=== PATIENT | male | born 1940 | race Caucasian/White ===

== ENCOUNTER 2017-12-28 16:01 | Inpatient (IN) ==
[2017-12-28] MEDS ORDERED: LACTATED RINGERS 1,000 ML IV ONE (16:25)
--- NOTE | 2017-12-28 16:27 | Emergency Department Note ---
General Adult HPI - General Chief complaint: Weakness Stated complaint: weakness Time Seen by Provider: 12/28/17 16:10 Source: patient Mode of arrival: ambulatory Limitations: no limitations - History of Present Illness HPI Narrative: This patient has had flulike symptoms for the last several days with cough congestion diarrhea general aches and pains. Minimal shortness of breath no chest pain minimal abdominal pain. - Related Data Home Medications Medication Instructions Recorded Confirmed Simvastatin [Zocor] 40 mg PO HS 11/16/15 12/28/17 [facility] Vitamin D caps PO QDAY 03/08/16 03/13/16 aspirin 81 mg tablet,delayed 81 mg PO QDAY 03/08/16 12/28/17 release ascorbic acid (vitamin C) ER 500 500 mg PO QDAY 03/13/16 12/28/17 mg capsule,extended release Allergies Allergy/AdvReac Type Severity Reaction Status Date / Time No Known Drug Allergies Allergy Verified 12/28/17 16:04 Review of Systems All systems ED: reviewed and negative except as stated. Past Medical History - Past Medical History PMF Narrative: Medical History Skin lesion (Chronic) Dry skin (Chronic) History of radiation therapy (Chronic) History of nicotine dependence (Chronic) Joint stiffness (Chronic) Limb pain (Chronic) Joint swelling (Chronic) Slowing, urinary stream (Chronic) Prostate cancer (Chronic) Microscopic hematuria (Chronic) Dysuria (Chronic) Rash (Chronic) Wheezing (Chronic) Hernia, abdominal (Chronic) Prostate carcinoma (Chronic) Nocturia (Chronic) Adenocarcinoma of prostate (Chronic) AMI (acute myocardial infarction) (Chronic) Hypertension, essential (Chronic) Psoriasis (Chronic) CAD (coronary artery disease) (Chronic) Chronic renal disease (Chronic) Urinary retention (Chronic) Urethral stricture (Chronic) Polycythemia, secondary (Chronic) COPD (chronic obstructive pulmonary disease) (Chronic) Drug-induced hepatotoxicity (Chronic) Dermatitis (Chronic) Hyperlipidemia (Chronic) Community acquired pneumonia (Acute) Past Surgical History History of cholecystectomy (Chronic) History of colonoscopy (Chronic) History of knee surgery (Chronic) History of surgery (Chronic) Hx of right coronary artery stent placement (Chronic) S/P cystourethroscopy with dilation of urethral stricture (Chronic) Family History Other Cancer Heart attack Prostate cancer Medical history: Reports: hyperlipidemia - Social History smoking status: Current every day smoker Physical Exam Limitations: no limitations General appearance: alert Head: atraumatic Eye: Present: normal appearance ENT: normal exam Neck: Present: normal inspection Chest: Present: normal inspection Respiratory: Present: other (Scattered rhonchi) Cardiovascular: Present: regular rate, normal rhythm, normal heart sounds Abdominal: Present: soft. Absent: distention, tenderness Neurological: Present: alert Psychiatric: Present: normal affect, normal mood Skin: Present: warm, dry, intact Course Vital Signs Temperature 98.6 F 12/28/17 16:02 Respiratory Rate 20 12/28/17 16:02 Blood Pressure 126/76 12/28/17 16:02 Pulse Oximetry (%) 92 12/28/17 16:02 Temperature 98.6 F 12/28/17 16:02 Pulse Rate 69 12/28/17 18:47 Respiratory Rate 20 12/28/17 16:02 Blood Pressure 117/63 12/28/17 18:47 Pulse Oximetry (%) 90 12/28/17 18:47 Medical Decision Making - MDM Narrative Medical decision making narrative: Patient does have a left lower lobe infiltrate and a urinary tract infection. Received Rocephin and doxycycline. He was interested in staying in the hospital as he felt so weak and Dr. Pierre will admit him. - Lab Data Lab results reviewed: Yes I reviewed the patient's lab results. Result diagrams: 12/28/17 16:33 12/28/17 16:33 Lab Results 12/28/17 12/28/17 12/28/17 Range/Units 16:33 16:33 16:33 WBC 15.1 H (4.5-11.0) K/mcL RBC 4.59 (4.50-5.90) M/mcL Hgb 14.1 (13.5-16.5) g/dL Hct 42.0 (41.0-55.0) % MCV 91.4 (80.0-100.0) fL MCH 30.7 (26.0-34.0) pg MCHC 33.6 (31.0-36.0) g/dL RDW 13.2 (11.5-14.5) % Plt Count 235 (140-440) K/mcL MPV 7.7 (7.4-10.4) fL Gran % 73.5 (38.0-78.0) % Lymph % (Auto) 14.5 L (15.5-49.0) % Weber % (Auto) 9.8 (1.0-12.0) % Eos % (Auto) 1.8 (0.0-7.0) % Baso % (Auto) 0.4 (0.0-2.0) % Gran # 11.1 H (1.8-8.0) K/mcL Lymph # (Auto) 2.2 (1.5-4.8) K/mcL Weber # (Auto) 1.5 H (0.1-0.9) K/mcL Eos # (Auto) 0.3 (0.0-0.7) K/mcL Baso # (Auto) 0.1 (0.0-0.3) K/mcL VBG Lactic Acid 1.0 (0.5-2.2) mmol/L Sodium 136 (133-145) mmol/L Potassium 4.0 (3.3-5.1) mmol/L Chloride 99 (96-108) mmol/L Carbon Dioxide 22 (22-30) mmol/L Anion Gap 15.0 (8-16) BUN 21 (8-23) mg/dl Creatinine 1.3 H (0.7-1.2) mg/dl GFR Calculation 53 Glucose 103 (70-105) mg/dL Calcium 9.6 (8.6-10.4) mg/dl Total Bilirubin 1.0 (0.0-1.0) mg/dL AST 15 (0-37) U/l ALT 10 (0-40) U/l Alkaline Phosphatase 62 (39-117) U/L Total Protein 6.9 (5.9-8.4) gm/dL Albumin 3.7 (3.2-5.2) gm/dL Globulin 3.2 (2.2-3.7) gm/dL Albumin/Globulin Ratio 1.2 (1.0-2.3) Urine Color Urine Appearance Urine pH (5.0-9.0) Ur Specific [place] (1.000-1.035) Urine Protein (NEG) mg/dL Urine Glucose (UA) (NEG) mg/dL Urine Ketones (NEG) mg/dL Urine Occult Blood (<0.03) mg/dL Urine Nitrate (NEG) Urine Bilirubin (NEG) mg/dL Urine Urobilinogen (NEG) mg/dL Ur Leukocyte Esterase (NEG) /uL Urine RBC (0-1) /hpf Urine WBC (0-4) /hpf Ur Squamous Epith Cells (0-4) /hpf Urine Bacteria (0) /hpf Urine Mucus (0) /hpf Ur Culture Indicated? 12/28/17 Range/Units 16:36 WBC (4.5-11.0) K/mcL RBC (4.50-5.90) M/mcL Hgb (13.5-16.5) g/dL Hct (41.0-55.0) % MCV (80.0-100.0) fL MCH (26.0-34.0) pg MCHC (31.0-36.0) g/dL RDW (11.5-14.5) % Plt Count (140-440) K/mcL MPV (7.4-10.4) fL Gran % (38.0-78.0) % Lymph % (Auto) (15.5-49.0) % Weber % (Auto) (1.0-12.0) % Eos % (Auto) (0.0-7.0) % Baso % (Auto) (0.0-2.0) % Gran # (1.8-8.0) K/mcL Lymph # (Auto) (1.5-4.8) K/mcL Weber # (Auto) (0.1-0.9) K/mcL Eos # (Auto) (0.0-0.7) K/mcL Baso # (Auto) (0.0-0.3) K/mcL VBG Lactic Acid (0.5-2.2) mmol/L Sodium (133-145) mmol/L Potassium (3.3-5.1) mmol/L Chloride (96-108) mmol/L Carbon Dioxide (22-30) mmol/L Anion Gap (8-16) BUN (8-23) mg/dl Creatinine (0.7-1.2) mg/dl GFR Calculation Glucose (70-105) mg/dL Calcium (8.6-10.4) mg/dl Total Bilirubin (0.0-1.0) mg/dL AST (0-37) U/l ALT (0-40) U/l Alkaline Phosphatase (39-117) U/L Total Protein (5.9-8.4) gm/dL Albumin (3.2-5.2) gm/dL Globulin (2.2-3.7) gm/dL Albumin/Globulin Ratio (1.0-2.3) Urine Color Yellow Urine Appearance Hazy Urine pH 5.0 (5.0-9.0) Ur Specific [place] 1.020 (1.000-1.035) Urine Protein 30 A (NEG) mg/dL Urine Glucose (UA) Negative (NEG) mg/dL Urine Ketones Neg (NEG) mg/dL Urine Occult Blood 0.2 A (<0.03) mg/dL Urine Nitrate Neg (NEG) Urine Bilirubin Neg (NEG) mg/dL Urine Urobilinogen 2.0 A (NEG) mg/dL Ur Leukocyte Esterase Neg (NEG) /uL Urine RBC 17 H (0-1) /hpf Urine WBC 9 H (0-4) /hpf Ur Squamous Epith Cells 1 (0-4) /hpf Urine Bacteria 0 (0) /hpf Urine Mucus Few (0) /hpf Ur Culture Indicated? Yes - Radiology Data Radiology results reviewed: Yes I reviewed the patient's radiology results. Disposition Pt seen by PHOTOGRAPHY ASSISTANT/PA only: No Clinical Impression: Pneumonia, UTI (urinary tract infection) Disposition: Xfer As Outpt/Obs ([facility]) Referrals: Lanette Powers ARNP [Primary Care Provider] - Time of Disposition: 19:45
--- NOTE | 2017-12-28 16:35 | XRay Report ---
CLINICAL INFORMATION: Cough COMPARISON: 11/16/2015 FINDINGS: Heart size, mediastinum and pulmonary vessels are unremarkable. 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 A small patchy infiltrate has developed in the posterior medial left lower lobe with small left pleural effusion. Bones and soft tissues are unremarkable IMPRESSION: 1. Small patchy infiltrate left lower lobe - likely pneumonia 2. Moderate COPD with a 15 cm bullae dominating the right upper lobe - stable Interpreted and Authenticated by: Bo Ortega 12/28/17
[2017-12-28 17:08] LABS: Basophils # (Auto) 0.1 K/mcL (0.0-0.3); Basophils % (Auto) 0.4 % (0.0-2.0); Eosinophils # (Auto) 0.3 K/mcL (0.0-0.7); Eosinophils % (Auto) 1.8 % (0.0-7.0); Granulocytes % (Auto) 73.5 % (38.0-78.0); Lymphocytes # (Auto) 2.2 K/mcL (1.5-4.8); Lymphocytes % (Auto) 14.5 % (15.5-49.0); Mean Cell Volume 91.4 fL (80.0-100.0); Mean Corpuscular HGB Conc 33.6 g/dL (31.0-36.0); Mean Corpuscular Hemoglobin 30.7 pg (26.0-34.0); Monocytes # (Auto) 1.5 K/mcL (0.1-0.9); Monocytes % (Auto) 9.8 % (1.0-12.0); Platelet Count 235 K/mcL (140-440); RBC 4.59 M/mcL (4.50-5.90); Red Cell Distribution Width 13.2 % (11.5-14.5)
[2017-12-28 17:18] LABS: Appearance,Urine HAZY; Bacteria,Urine 0 /hpf (0); Bilirubin,Urine NEG (NEG); Color,Urine YELLOW; Glucose,Urine (UA) NEGATIVE (NEG); Leukocyte Esterase,Urine NEG /uL (NEG); Mucus,Urine FEW /hpf (0); Protein,Urine 30 mg/dL (NEG); Urine Blood 0.2 mg/dL (<0.03); Urine RBC 17 /hpf (0-1); Urine Squamous Epithelial Cell 1 /hpf (0-4); Urine WBC 9 /hpf (0-4)
[2017-12-28 17:24] LABS: ALT/SGPT 10 U/l (0-40); Albumin 3.7 gm/dL (3.2-5.2); Albumin/Globulin Ratio 1.2 (1.0-2.3); Alkaline Phosphatase 62 U/L (39-117); Blood Urea Nitrogen 21 mg/dl (8-23)
[2017-12-28] MEDS ORDERED: cefTRIAXone 1 GM VIAL IV ONE (17:30)
[2017-12-28] MEDS ORDERED: DOXYCYCLINE 100 MG in DEXTROSE 5% IN WATER 100 ML IV ONE (17:30)
[2017-12-28] MEDS ORDERED: DOXYCYCLINE 100 MG VIAL ONE (17:44)
[2017-12-28] MEDS ORDERED: DEXTROSE 5% IN WATER 100 ML IV ONE (17:53)
[2017-12-28] MEDS ORDERED: HYDROmorphone 2 MG/ML VIAL IV PRN (19:21)
[2017-12-28] MEDS ORDERED: cefTRIAXone 2 GM in DEXTROSE 5% IN WATER 50 ML IV SCH (22:36)
[2017-12-28] MEDS ORDERED: MAGNESIUM SULFATE 2 GM/50 ML BAG IV PRN (22:36)
[2017-12-28] MEDS ORDERED: ONDANSETRON 4 MG/2 ML VIAL IV PRN (22:36)
[2017-12-28] MEDS ORDERED: ACETAMINOPHEN 1,000 MG/100 ML BOTTLE IV PRN (22:36)
[2017-12-28] MEDS ORDERED: POTASSIUM CHLORIDE 20 MEQ PACKET PO PRN (22:36)
[2017-12-28] MEDS: DOCUSATE SODIUM 100 MG CAPSULE PO SCH (22:50)
[2017-12-28] MEDS: AZITHROMYCIN 500 MG in DEXTROSE 5% IN WATER 250 ML IV SCH (22:51)
[2017-12-28] MEDS: cefTRIAXone 1 GM VIAL ONE ×2 (22:52→23:05)
[2017-12-28] MEDS: 0.9 % SODIUM CHLORIDE 10 ML SYRINGE IV SCH (22:52)
[2017-12-28] MEDS: SENNOSIDES/DOCUSATE SODIUM 1 TAB TABLET PO SCH (22:58)
--- NOTE | 2017-12-28 23:32 | Internal Med History&Physical ---
Medical - H&P: [facility] Patient information: Note initiated : 12/28/17 at 11:31 pm Service Date, if different from initiated Date: [] Patient: Philipp Connelly a 77 y/o M admitted on 12/28/17 for weakness. Chief Complaint: [] Chief complaint: cough shortness of breath History of present illness: Mr. Connelly is a 77 year old M who lives fairly independently and was in his baseline state of health until over the last 1 week patient has noticed uppersymptoms including cough along with wheezing. Symptoms have progressed to dyspnea on minimal exertion/breast along with associated productive yellow- green sputum. Patient denies any sick contacts. He is up-to-date on his vaccine. Patient noted associated fever. He denies smoking. He has been unable to eat over the last 24 hours. He has not had a sleep last 48 hours due to extreme shortness of breath. he has been unable to function or perform activities of daily living. With increasing concerns family brought him to the ER. initial workup was significant for left lower lobe infiltrates suggestive of pneumonia along with pyuria, white count 15,000. Patient received antibiotics and subsequently hospitalist service consulted At the time of evaluation patient is remarkably short of breath and anxious and unable to talk in full sentences.. He was however able to provide answers to most of the questions including review of systems. He denies headache photophobia and nausea vomiting diarrhea dysuria or bloody stools weight loss glandular swelling. He denies joint pain or rash. Review of systems A 10 point review systems was performed and is negative except for what is discussed above Medical - H&P: PM Medical history: Medical History Skin lesion (Chronic) Dry skin (Chronic) History of radiation therapy (Chronic) History of nicotine dependence (Chronic) Joint stiffness (Chronic) Limb pain (Chronic) Joint swelling (Chronic) Slowing, urinary stream (Chronic) Prostate cancer (Chronic) Microscopic hematuria (Chronic) Dysuria (Chronic) Rash (Chronic) Wheezing (Chronic) Hernia, abdominal (Chronic) Prostate carcinoma (Chronic) Nocturia (Chronic) Adenocarcinoma of prostate (Chronic) AMI (acute myocardial infarction) (Chronic) Hypertension, essential (Chronic) Psoriasis (Chronic) CAD (coronary artery disease) (Chronic) Chronic renal disease (Chronic) Urinary retention (Chronic) Urethral stricture (Chronic) Polycythemia, secondary (Chronic) COPD (chronic obstructive pulmonary disease) (Chronic) Drug-induced hepatotoxicity (Chronic) Dermatitis (Chronic) Hyperlipidemia (Chronic) Community acquired pneumonia (Acute) Past Surgical History History of cholecystectomy (Chronic) History of colonoscopy (Chronic) History of knee surgery (Chronic) History of surgery (Chronic) Hx of right coronary artery stent placement (Chronic) S/P cystourethroscopy with dilation of urethral stricture (Chronic) Pertinent family history: Cancer Heart attack Prostate cancer Social history: active smoker No history of alcoholism lives independent Smoking status: Current every day smoker Drug use: none Alcohol use: none Medical - H&P: Meds Home Medications Medication Instructions Recorded Confirmed Type Simvastatin [Zocor] 40 mg PO HS 11/16/15 12/28/17 History [facility] Vitamin D caps PO QDAY 03/08/16 03/13/16 History aspirin 81 mg tablet,delayed 81 mg PO QDAY 03/08/16 12/28/17 History release ascorbic acid (vitamin C) ER 500 500 mg PO QDAY 03/13/16 12/28/17 History mg capsule,extended release Allergies Allergy/AdvReac Type Severity Reaction Status Date / Time No Known Drug Allergies Allergy Verified 12/28/17 16:04 Medical - H&P: Exam - Constitutional Vitals: Temp Pulse Resp BP Pulse Ox 99.4 F H 74 28 H 124/69 90 12/28/17 22:28 12/28/17 22:28 12/28/17 22:28 12/28/17 22:28 12/28/17 22:28 General appearance: moderate distress (SOB) Exam: pupils symmetric oral cavity dry No ear nose discharge Head normocephalic Neck no lymphadenopathy S1 and S2 tachycardia Diminished breath sounds left base, rhonchi evident laterally Abdomen soft Nontender Lower extremity no cyanosis clubbing Skin no suspicious lesion Psych anxious but alert Neuro nonfocal Medical - H&P: Reslt - Labs CBC & Chem 7: 12/29/17 03:25 12/29/17 03:25 Labs: Short CBC 12/28/17 Range/Units 16:33 WBC 15.1 H (4.5-11.0) K/mcL Hgb 14.1 (13.5-16.5) g/dL Hct 42.0 (41.0-55.0) % Plt Count 235 (140-440) K/mcL BMP 12/28/17 16:33 Sodium 136 Potassium 4.0 Chloride 99 Carbon Dioxide 22 BUN 21 Creatinine 1.3 H Glucose 103 Calcium 9.6 Liver Function 12/28/17 Range/Units 16:33 Total Bilirubin 1.0 (0.0-1.0) mg/dL AST 15 (0-37) U/l ALT 10 (0-40) U/l Alkaline Phosphatase 62 (39-117) U/L Albumin 3.7 (3.2-5.2) gm/dL Urine 12/28/17 Range/Units 16:36 Urine Color Yellow Urine Appearance Hazy Urine pH 5.0 (5.0-9.0) Ur Specific [place] 1.020 (1.000-1.035) Urine Protein 30 A (NEG) mg/dL Urine Glucose (UA) Negative (NEG) mg/dL Medical - H&P: A/P (1) Community acquired pneumonia Current visit: No Status: Acute assessment- 77-year-old hypoxic respiratory failure/left lower lobe pneumonia * Community acquired pneumonia-management per protocol on Rocephin/azithromycin * COPD exacerbation-bronchodilators/steroids * hypoxic respiratory failure-continue cefepime until oxygen. Secondary to pneumonia/underlying COPD. pulmonary toilet * complicated UTI- continue antibiotic coverage * hyperlipidemia on statin * Full code * Prophylaxis heparin Plan * Antibiotic coverage * Bronchodilators pulmonary toilet * Admitted as inpatient in light of PSI score over 100
[2017-12-28] MEDS: HEPARIN 5,000 UNIT/ML VIAL SQ SCH (23:48)
[2017-12-29] MEDS: ACETAMINOPHEN 325 MG TABLET PO PRN (03:06)
[2017-12-29] MEDS ORDERED: ACETAMINOPHEN 325 MG TABLET PO ONE (03:07)
[2017-12-29] MEDS: IPRATROPIUM/ALBUTEROL 3 ML AMPUL.NEB NEB PRN ×4 (03:07→20:47)
[2017-12-29] MEDS ORDERED: IPRATROPIUM/ALBUTEROL 3 ML AMPUL.NEB NEB ONE (03:07)
[2017-12-29 04:57] LABS: Mean Cell Volume 91.1 fL (80.0-100.0); Mean Corpuscular HGB Conc 33.8 g/dL (31.0-36.0); Mean Corpuscular Hemoglobin 30.8 pg (26.0-34.0); Platelet Count 197 K/mcL (140-440); RBC 4.12 M/mcL (4.50-5.90); Red Cell Distribution Width 13.4 % (11.5-14.5)
[2017-12-29] MEDS: 0.9 % SODIUM CHLORIDE 10 ML SYRINGE IV SCH ×3 (05:04→22:26)
[2017-12-29] MEDS: 0.9 % SODIUM CHLORIDE 1,000 ML IV SCH (05:04)
[2017-12-29 05:15] LABS: ALT/SGPT 10 U/l (0-40); Albumin 3.1 gm/dL (3.2-5.2); Albumin/Globulin Ratio 1.1 (1.0-2.3); Alkaline Phosphatase 73 U/L (39-117); Bilirubin,Direct < 0.2 mg/dL (0.0-0.3); Blood Urea Nitrogen 16 mg/dl (8-23); Gamma Glutamyl Transpeptidase 30 U/L (8-61); Uric Acid 7.1 mg/dL (2.5-8.0)
[2017-12-29 05:58] LABS: Band Neutrophils % 6 % (0-10); Eosinophils % (Manual) 1 % (0-7); Lymphocytes % 21 % (15-49); Monocytes % (Manual) 8 % (1-12); Platelet Estimate NORMAL (NORMAL); RBC Morphology NORMAL (NORMAL); Segmented Neutrophils % 62 % (38-78)
[2017-12-29] MEDS: HEPARIN 5,000 UNIT/ML VIAL SQ SCH ×2 (09:14→20:47)
[2017-12-29] MEDS: BUDESONIDE 0.5 MG/2 ML AMPUL.NEB NEB SCH ×2 (09:28→20:57)
[2017-12-29] MEDS: DOCUSATE SODIUM 100 MG CAPSULE PO SCH ×2 (09:47→22:24)
--- NOTE | 2017-12-29 10:37 | Internal Med Progress Note ---
Medical - PN: Subj Patient information: Note initiated : 12/29/17 at 10:34 am Service Date, if different from initiated Date: [] Patient: Philipp Connelly a 77 y/o M admitted on 12/28/17 for weakness. Chief Complaint: [] Interval history: Mr. Connelly is a 77 year old M who lives fairly independently and was in his baseline state of health until over the last 1 week patient has noticed uppersymptoms including cough along with wheezing. Symptoms have progressed to dyspnea on minimal exertion/breast along with associated productive yellow- green sputum. Patient denies any sick contacts. He is up-to-date on his vaccine. Patient noted associated fever. He denies smoking. He has been unable to eat over the last 24 hours. He has not had a sleep last 48 hours due to extreme shortness of breath. he has been unable to function or perform activities of daily living. With increasing concerns family brought him to the ER. initial workup was significant for left lower lobe infiltrates suggestive of pneumonia along with pyuria, white count 15,000. Patient received antibiotics and subsequently hospitalist service consulted At the time of evaluation patient is remarkably short of breath and anxious and unable to talk in full sentences.. He was however able to provide answers to most of the questions including review of systems. He denies headache photophobia and nausea vomiting diarrhea dysuria or bloody stools weight loss glandular swelling. He denies joint pain or rash. 12/29-patient doing well. Persistent wheezing but had a restful night. On 3 L oxygen. On bronchodilators and antibiotics. White count down from 15->14. no overnight events including worsening shortness of breath chest pain. Tolerating diet. Ongoing physical therapy. - Constitutional Vitals: Vital Signs Temp Pulse Resp BP Pulse Ox 98.2 F 60 16 98/62 91 12/29/17 07:51 12/29/17 09:42 12/29/17 09:42 12/29/17 07:51 12/29/17 09:42 Period Temp Pulse Resp BP Sys/Raines Pulse Ox Last 24 Hr 98.2 F-101.1 F 60-80 16-28 90-131/50-83 89-95 Intake and Output 12/28/17 12/29/17 12/29/17 21:59 05:59 13:59 Intake Total 1100 / 1100 0 / 0 400 / 400 Output Total 200 / 200 450 / 450 Balance 1100 / 1100 -200 / -200 -50 / -50 Weight 174 lb 174 lb Intake & Output: Intake & Output 12/28/17 12/29/17 12/29/17 21:59 05:59 13:59 Intake Total 1100 / 1100 0 / 0 400 / 400 Output Total 200 / 200 450 / 450 Balance 1100 / 1100 -200 / -200 -50 / -50 Weight 174 lb 174 lb Intake: IV 1100 / 1100 Dextrose 5% in Water 100 ml As 100 / 100 IV .STK-MED ONE Rx#:[id number] Lactated Ringers 1,000 ml @ 1000 / 1000 Wide Open IV BOLUS ONE Rx#: [id number] Oral 0 / 0 400 / 400 Output: Void Amount 200 / 200 450 / 450 Other: Meal Fruit cup & grahm crackers Breakfast Percent of Meal Consumed 100% 100% # Voids 1 General appearance: cooperative, no acute distress Exam: alert and oriented nonlabored breathing However persistent rhonchi Nondistended abdomen minimal anxiety Medical - PN: Obj Da - Labs CBC & Chem 7: 12/29/17 03:25 12/29/17 03:25 Labs: Abnormal Lab Results 12/29/17 12/29/17 12/28/17 03:25 03:25 16:36 WBC 14.0 H RBC 4.12 L Hgb 12.7 L Hct 37.6 L Lymph % (Auto) Gran # Starr # (Auto) Creatinine Glucose 123 H Phosphorus 2.1 L Total Protein 5.8 L Albumin 3.1 L Urine Protein 30 A Urine Occult Blood 0.2 A Urine Urobilinogen 2.0 A Urine RBC 17 H Urine WBC 9 H 12/28/17 12/28/17 16:33 16:33 WBC 15.1 H RBC Hgb Hct Lymph % (Auto) 14.5 L Gran # 11.1 H Starr # (Auto) 1.5 H Creatinine 1.3 H Glucose Phosphorus Total Protein Albumin Urine Protein Urine Occult Blood Urine Urobilinogen Urine RBC Urine WBC Meds: Medications Acetaminophen (Tylenol) 650 mg PO Q4-6HP PRN PRN Reason: PAIN/FEVER > 101 Last Admin: 12/29/17 03:06 Dose: 650 mg Albuterol/Ipratropium (Duoneb) 3 ml NEB Q4HP PRN PRN Reason: Shortness Of Breath Last Admin: 12/29/17 09:40 Dose: 3 ml Budesonide (Pulmicort) 0.5 mg NEB Q12 [facility] Last Admin: 12/29/17 09:28 Dose: 0.5 mg Ceftriaxone Sodium (Rocephin) 2 gm IV Q24H [facility] Docusate Sodium (Colace) 100 mg PO BID [facility] Last Admin: 12/29/17 09:47 Dose: Not Given Heparin Sodium (Porcine) (Heparin) 5,000 unit SQ Q12 [facility] Last Admin: 12/29/17 09:14 Dose: 5,000 unit Azithromycin 500 mg/ Dextrose 250 mls @ 250 mls/hr IV Q24H [facility] Stop: 12/30/17 23:35 Last Admin: 12/28/17 22:51 Dose: 250 mls/hr Magnesium Sulfate (Magnesium Sulfate) 2 gm in 50 mls @ 50 mls/hr IV UD PRN PRN Reason: MG = or < 1.7 Acetaminophen (Ofirmev) 1,000 mg in 100 mls @ 200 mls/hr IV Q6HP PRN PRN Reason: PAIN/FEVER > 101 Sodium Chloride (Sodium Chloride 0.9%) 1,000 mls @ 50 mls/hr IV .Q20H [facility] Last Admin: 12/29/17 05:04 Dose: 50 mls/hr Ondansetron HCl (Zofran) 4 mg IV Q4-6HP PRN PRN Reason: Nausea And Vomiting Potassium Chloride (Klor-Con) 40 meq PO DAILYP PRN PRN Reason: K+ < 3.5 Senna/Docusate Sodium (Senna Plus Tablet) 1 tab PO HS [facility] Last Admin: 12/28/17 22:58 Dose: Not Given Sodium Chloride (Saline Flush) 10 ml IV Q8 [facility] Last Admin: 12/29/17 05:04 Dose: 10 ml Medical - PN: A/P - Time Spent With Patient Total time spent is greater than 50% in coordination of care (as documented) at patient's floor/unit and/or counseling patient: 25 - 35 minutes (1) Community acquired pneumonia Status: Acute Assessment and plan: Assessment- 77-year-old history of active smoking/COPD admitted with hypoxic respiratory failure/left lower lobe pneumonia * Community acquired pneumonia-continue management per protocol on Rocephin/ azithromycin.white count down to 14,000 * COPD exacerbation-clinical improvement noted on supplement oxygen/ bronchodilators/steroids * hypoxic respiratory failure-continue supplemental oxygen. Secondary to pneumonia/underlying COPD. ongoing pulmonary toilet * complicated UTI- continue antibiotic coverage * hyperlipidemia on statin * tobacco dependence * Full code * Prophylaxis heparin Plan * de-escalate antibiotics based on culture sensitivities * Bronchodilators pulmonary toilet * physical therapy * tobacco cessation counseling Current Visit: No Medical - PN: Qual - VTE Deep Vein Thrombosis/Pulmonary Embolism Present on Admission: No
[2017-12-29] MEDS: cefTRIAXone 2 GM VIAL IV SCH (14:58)
[2017-12-29] MEDS: AZITHROMYCIN 500 MG in DEXTROSE 5% IN WATER 250 ML IV SCH (14:58)
[2017-12-29] MEDS: SENNOSIDES/DOCUSATE SODIUM 1 TAB TABLET PO SCH (22:24)
[2017-12-30] MEDS: IPRATROPIUM/ALBUTEROL 3 ML AMPUL.NEB NEB PRN (02:40)
[2017-12-30] MEDS: 0.9 % SODIUM CHLORIDE 1,000 ML IV SCH ×2 (02:51→14:15)
[2017-12-30] MEDS: 0.9 % SODIUM CHLORIDE 10 ML SYRINGE IV SCH ×3 (05:15→20:51)
[2017-12-30 06:47] LABS: Mean Cell Volume 91.2 fL (80.0-100.0); Mean Corpuscular HGB Conc 34.1 g/dL (31.0-36.0); Mean Corpuscular Hemoglobin 31.1 pg (26.0-34.0); Platelet Count 208 K/mcL (140-440); RBC 3.96 M/mcL (4.50-5.90); Red Cell Distribution Width 13.5 % (11.5-14.5)
[2017-12-30 07:16] LABS: ALT/SGPT 11 U/l (0-40); Albumin 2.9 gm/dL (3.2-5.2); Albumin/Globulin Ratio 1.1 (1.0-2.3); Alkaline Phosphatase 51 U/L (39-117); Bilirubin,Direct < 0.2 mg/dL (0.0-0.3); Blood Urea Nitrogen 16 mg/dl (8-23); Gamma Glutamyl Transpeptidase 29 U/L (8-61); Uric Acid 6.3 mg/dL (2.5-8.0)
[2017-12-30 08:33] LABS: Lymphocytes % 9 % (15-49); Monocytes % (Manual) 10 % (1-12); Platelet Estimate NORMAL (NORMAL); RBC Morphology NORMAL (NORMAL); Segmented Neutrophils % 78 % (38-78)
--- NOTE | 2017-12-30 08:43 | XRay Report ---
HISTORY: Reason for Exam: Follow-up left lower lobe infiltrate FINDINGS: There are mild streaky infiltrates in both lower lobes, extending up to the left hilum. These have become worse bilaterally, especially in the left side since 12/28/17. Right upper lobe is hyperlucent due to underlying emphysema. There is a 1.5 cm nodular density at the left costophrenic sulcus. This was not present on the prior chest x-rays. This represents consolidated lung parenchyma and not a neoplasm. IMPRESSION: Worsening bibasilar pneumonia Interpreted and Authenticated by: Jose Perrin 12/30/17
[2017-12-30] MEDS: DOCUSATE SODIUM 100 MG CAPSULE PO SCH ×2 (09:21→20:51)
[2017-12-30] MEDS: ACETAMINOPHEN 325 MG TABLET PO PRN (10:28)
[2017-12-30] MEDS: HEPARIN 5,000 UNIT/ML VIAL SQ SCH ×2 (10:30→20:50)
[2017-12-30] MEDS: AZITHROMYCIN 500 MG in DEXTROSE 5% IN WATER 250 ML IV SCH (10:31)
[2017-12-30] MEDS: cefTRIAXone 2 GM VIAL IV SCH (10:33)
[2017-12-30] MEDS ORDERED: ASPIRIN 81 MG TAB.CHEW CHEWED ONE (11:43)
[2017-12-30] MEDS ORDERED: ASPIRIN 81 MG TAB.CHEW ONE (11:45)
[2017-12-30] MEDS: NITROGLYCERIN 0.4 MG TAB.SUBL SL PRN ×3 (11:45→12:21)
[2017-12-30] MEDS ORDERED: 0.9 % SODIUM CHLORIDE 1,000 ML IV SCH ×2 (11:45→14:05)
[2017-12-30] MEDS ORDERED: NITROGLYCERIN 0.4 MG TAB.SUBL SL ONE (11:46)
[2017-12-30] MEDS ORDERED: ENOXAPARIN 80 MG/0.8 ML SYRINGE SQ ONE (11:51)
[2017-12-30] MEDS ORDERED: CLINDAMYCIN 600 MG in DEXTROSE 5% IN WATER 50 ML IV SCH (12:00)
--- NOTE | 2017-12-30 12:03 | Internal Med Progress Note ---
Medical - PN: Subj Patient information: Note initiated : 12/30/17 at 12:00 pm Service Date, if different from initiated Date: [] Patient: Philipp Connelly a 77 y/o M admitted on 12/28/17 for Weakness/Pneumonia , UTI. Chief Complaint: [] Interval history: Mr. Connelly is a 77 year old M who lives fairly independently and was in his baseline state of health until over the last 1 week patient has noticed uppersymptoms including cough along with wheezing. Symptoms have progressed to dyspnea on minimal exertion/breast along with associated productive yellow- green sputum. Patient denies any sick contacts. He is up-to-date on his vaccine. Patient noted associated fever. He denies smoking. He has been unable to eat over the last 24 hours. He has not had a sleep last 48 hours due to extreme shortness of breath. he has been unable to function or perform activities of daily living. With increasing concerns family brought him to the ER. initial workup was significant for left lower lobe infiltrates suggestive of pneumonia along with pyuria, white count 15,000. Patient received antibiotics and subsequently hospitalist service consulted At the time of evaluation patient is remarkably short of breath and anxious and unable to talk in full sentences.. He was however able to provide answers to most of the questions including review of systems. He denies headache photophobia and nausea vomiting diarrhea dysuria or bloody stools weight loss glandular swelling. He denies joint pain or rash. 12/29-patient doing well. Persistent wheezing but had a restful night. On 3 L oxygen. On bronchodilators and antibiotics. White count down from 15->14. no overnight events including worsening shortness of breath chest pain. Tolerating diet. Ongoing physical therapy. 12/30- patient complains of left-sided substernal chest pain. Rapid response was called. Stat EKG shows Q waves anterior leads. Cardiac enzymes pending. Morphine/aspirin/nitrate given patient on high flow oxygen. Chest pain described more as a tightness however worsening with deep inspiration and located at the left lateral aspect. Patient gives a history of prior coronary artery disease/stenting 2000 at [facility]. Differential includes acute coronary syndrome/PE with infarct. Full dose Lovenox administered. Await cardiac enzymes and if negative will run CT angiogram chest. Transfer to ICU Chest imaging shows worsening bibasilar infiltrates. Antibiotics extended to cover anaerobes last gram negatives in light of risk of aspiration. - Constitutional Vitals: Vital Signs Temp Pulse Resp BP Pulse Ox 98.7 F 66 22 111/69 92 12/30/17 08:00 12/30/17 08:00 12/30/17 08:00 12/30/17 08:00 12/30/17 08:00 Period Temp Pulse Resp BP Sys/Raines Pulse Ox Last 24 Hr 98.0 F-99.2 F 66-82 16-24 83-111/46-69 90-94 Intake and Output 12/29/17 12/30/17 12/30/17 21:59 05:59 13:59 Intake Total 490 / 490 1425 / 1425 360 / 360 Output Total 300 / 300 200 / 200 Balance 490 / 490 1125 / 1125 160 / 160 Weight 169 lb Intake & Output: Intake & Output 12/29/17 12/30/17 12/30/17 21:59 05:59 13:59 Intake Total 490 / 490 1425 / 1425 360 / 360 Output Total 300 / 300 200 / 200 Balance 490 / 490 1125 / 1125 160 / 160 Weight 169 lb Intake: IV 250 / 250 1000 / 1000 Sodium Chloride 0.9% 1,000 ml @ 1000 / 1000 50 mls/hr IV .Q20H [facility] Rx#: [id number] Zithromax 500 mg In Dextrose 5% 250 / 250 in Water 250 ml @ 250 mls/hr IV Q24H [facility] Rx#:[id number] Oral 240 / 240 425 / 425 360 / 360 Output: Void Amount 300 / 300 200 / 200 Other: Meal Breakfast Percent of Meal Consumed 100% Feeding Ability Independent Stool Size Small Moderate Stool Color Brown Brown Stool Consistency Formed Loose # Voids 1 1 # Bowel Movements 1 1 General appearance: moderate distress (chest pain/diaphoresis) Exam: anxious diaphoretic and active chest pain Labored breathing on 6 L oxygen Abdomen soft Clammy extremities/diaphoresis Medical - PN: Obj Da - Labs CBC & Chem 7: 12/30/17 05:13 12/30/17 05:13 Labs: Abnormal Lab Results 12/30/17 12/30/17 12/29/17 05:13 05:13 03:25 WBC RBC 3.96 L Hgb 12.3 L Hct 36.1 L Lymph % (Auto) Gran # [place] # (Auto) Lymphocytes % 9 L Reactive Lymphocytes 3 H Creatinine Glucose 123 H Phosphorus 2.6 L 2.1 L Total Protein 5.6 L 5.8 L Albumin 2.9 L 3.1 L Urine Protein Urine Occult Blood Urine Urobilinogen Urine RBC Urine WBC 12/29/17 12/28/17 12/28/17 03:25 16:36 16:33 WBC 14.0 H RBC 4.12 L Hgb 12.7 L Hct 37.6 L Lymph % (Auto) Gran # [place] # (Auto) Lymphocytes % Reactive Lymphocytes Creatinine 1.3 H Glucose Phosphorus Total Protein Albumin Urine Protein 30 A Urine Occult Blood 0.2 A Urine Urobilinogen 2.0 A Urine RBC 17 H Urine WBC 9 H 12/28/17 16:33 WBC 15.1 H RBC Hgb Hct Lymph % (Auto) 14.5 L Gran # 11.1 H [place] # (Auto) 1.5 H Lymphocytes % Reactive Lymphocytes Creatinine Glucose Phosphorus Total Protein Albumin Urine Protein Urine Occult Blood Urine Urobilinogen Urine RBC Urine WBC Meds: Medications Acetaminophen (Tylenol) 650 mg PO Q4-6HP PRN PRN Reason: PAIN/FEVER > 101 Last Admin: 12/30/17 10:28 Dose: 650 mg Albuterol/Ipratropium (Duoneb) 3 ml NEB Q4HP PRN PRN Reason: Shortness Of Breath Last Admin: 12/30/17 02:40 Dose: 3 ml Budesonide (Pulmicort) 0.5 mg NEB Q12 [facility] Last Admin: 12/29/17 20:57 Dose: 0.5 mg Ceftriaxone Sodium (Rocephin) 2 gm IV Q24H [facility] Last Admin: 12/30/17 10:33 Dose: 2 gm Docusate Sodium (Colace) 100 mg PO BID [facility] Last Admin: 12/30/17 09:21 Dose: Not Given Heparin Sodium (Porcine) (Heparin) 5,000 unit SQ Q12 [facility] Last Admin: 12/30/17 10:30 Dose: 5,000 unit Azithromycin 500 mg/ Dextrose 250 mls @ 250 mls/hr IV Q24H [facility] Stop: 12/30/17 23:35 Last Admin: 12/30/17 10:31 Dose: 250 mls/hr Magnesium Sulfate (Magnesium Sulfate) 2 gm in 50 mls @ 50 mls/hr IV UD PRN PRN Reason: MG = or < 1.7 Acetaminophen (Ofirmev) 1,000 mg in 100 mls @ 200 mls/hr IV Q6HP PRN PRN Reason: PAIN/FEVER > 101 Sodium Chloride (Sodium Chloride 0.9%) 1,000 mls @ 50 mls/hr IV .Q20H [facility] Last Infusion: 12/30/17 02:52 Dose: Infused Clindamycin Phosphate 600 mg/ (Dextrose) 54 mls @ 100 mls/hr IV Q6H [facility] Sodium Chloride (Sodium Chloride 0.9%) 1,000 mls @ 0 mls/hr IV .Q0M [facility] PRN Reason: KVO Morphine Sulfate (Morphine) 2 mg IV ONCE ONE Stop: 12/30/17 11:59 Nitroglycerin (Nitrostat) 0.4 mg SL Q5M PRN PRN Reason: Chest Pain Ondansetron HCl (Zofran) 4 mg IV Q4-6HP PRN PRN Reason: Nausea And Vomiting Potassium Chloride (Klor-Con) 40 meq PO DAILYP PRN PRN Reason: K+ < 3.5 Senna/Docusate Sodium (Senna Plus Tablet) 1 tab PO HS [facility] Last Admin: 12/29/17 22:24 Dose: Not Given Sodium Chloride (Saline Flush) 10 ml IV Q8 [facility] Last Admin: 12/30/17 05:15 Dose: 10 ml Medical - PN: A/P - Time Spent With Patient Total time spent is greater than 50% in coordination of care (as documented) at patient's floor/unit and/or counseling patient: Greater than 35 minutes (1) Community acquired pneumonia Status: Acute Assessment and plan: Assessment- 77-year-old history of active smoking/COPD admitted with hypoxic respiratory failure/left lower lobe pneumonia * bibasal pneumonia likely aspiration-Escalate antibiotics to clindamycin/ Rocephin. * hypoxic respiratory failure secondary to bibasal pneumonia * chest pain- EKG reveals anterior Q waves. Cardiac enzymes pending. History of prior CAD with stenting [address] [facility]. Further management based on cardiac enzyme. Status post aspirin and nitrate morphine oxygen and full dose Lovenox * COPD exacerbation with active smoking-continue supplement oxygen/ bronchodilators/inhaledsteroids * complicated UTI- continue antibiotic coverage * hyperlipidemia on statin * tobacco dependence * Full code * Prophylaxis heparin Plan * chest pain evaluation as above * start clindamycin for aspiration * DC azithromycin * aspiration precautions Current Visit: No - Narrative A/P Narrative: total time spent over 55 minutes including rapid response for chest pain/acute coronary event rule out Medical - PN: Qual - VTE Deep Vein Thrombosis/Pulmonary Embolism Present on Admission: No
[2017-12-30 12:23] LABS: Basophils # (Auto) 0 K/mcL (0.0-0.3); Basophils % (Auto) 0.3 % (0.0-2.0); Eosinophils # (Auto) 0.3 K/mcL (0.0-0.7); Eosinophils % (Auto) 2.5 % (0.0-7.0); Granulocytes % (Auto) 75.6 % (38.0-78.0); Lymphocytes # (Auto) 1.5 K/mcL (1.5-4.8); Lymphocytes % (Auto) 13.1 % (15.5-49.0); Mean Cell Volume 91.8 fL (80.0-100.0); Mean Corpuscular HGB Conc 33.5 g/dL (31.0-36.0); Mean Corpuscular Hemoglobin 30.8 pg (26.0-34.0); Monocytes % (Auto) 8.5 % (1.0-12.0); Platelet Count 229 K/mcL (140-440); Red Cell Distribution Width 13.4 % (11.5-14.5)
[2017-12-30 12:44] LABS: ALT/SGPT 14 U/l (0-40); Albumin 2.9 gm/dL (3.2-5.2); Albumin/Globulin Ratio 0.9 (1.0-2.3); Alkaline Phosphatase 59 U/L (39-117); Blood Urea Nitrogen 17 mg/dl (8-23); Creatine Kinase 174 IU/L (24-195); Creatine Kinase MB 3.4 ng/ml (0-4.9)
--- NOTE | 2017-12-30 12:50 | XRay Report ---
HISTORY: Reason for Exam:chest pain and bibasilar pneumonia FINDINGS: There are mild to moderate bibasilar alveolar infiltrates, left worse than right. These have not changed significantly since 6:00 AM on the same date. The nodular density seen at the left costophrenic sulcus on the earlier study is no longer present. There is no pleural effusion or evidence of adenopathy. The heart size is normal. IMPRESSION: Stable bibasilar pneumonia Interpreted and Authenticated by: Jose Perrin 12/30/17
[2017-12-30] MEDS ORDERED: IOPAMIDOL 100 ML BOTTLE IV ONE (13:57)
[2017-12-30] MEDS: BUDESONIDE 0.5 MG/2 ML AMPUL.NEB NEB SCH ×2 (14:02→21:17)
[2017-12-30] MEDS ORDERED: ONDANSETRON 4 MG/2 ML VIAL IV PRN (14:05)
[2017-12-30] MEDS ORDERED: POTASSIUM CHLORIDE 20 MEQ PACKET PO PRN (14:05)
[2017-12-30] MEDS ORDERED: ACETAMINOPHEN 1,000 MG/100 ML BOTTLE IV PRN (14:05)
[2017-12-30] MEDS ORDERED: ACETAMINOPHEN 325 MG TABLET PO PRN (14:05)
[2017-12-30] MEDS ORDERED: NITROGLYCERIN 0.4 MG TAB.SUBL SL PRN (14:05)
[2017-12-30] MEDS ORDERED: MAGNESIUM SULFATE 2 GM/50 ML BAG IV PRN (14:05)
[2017-12-30] MEDS ORDERED: IPRATROPIUM/ALBUTEROL 3 ML AMPUL.NEB NEB PRN (14:05)
--- NOTE | 2017-12-30 14:10 | Cat Scan Report ---
CLINICAL INFORMATION: Reason for Exam:r/o PE shortness of breath, weakness and pneumonia COMPARISON: None TECHNIQUE: Axial images obtained through the chest. intravenous contrast administration was administered, and scanning was performed during pulmonary arterial phase. Sagittally and coronally reformatted images were obtained. MIP reformatted images. FINDINGS: The pulmonary arteries are normal with no intraluminal filling defects. The heart is normal in size and contour. The aorta is normal in caliber. There is a moderate amount calcified plaque in the left anterior descending coronary artery. There are bilateral alveolar infiltrates posteriorly in both lower lobes. Associated with this is bronchial wall thickening. There are small bilateral layering pleural effusions. Severe emphysema is present in the upper lobes, right worse than left. There is milder emphysema in the lingula, right middle lobe and right lower lobe. IMPRESSION: No evidence of pulmonary emboli Bibasilar pneumonia Severe emphysema Interpreted and Authenticated by: Jose Perrin 12/30/17
[2017-12-30] MEDS: CLINDAMYCIN 600 MG in DEXTROSE 5% IN WATER 50 ML IV SCH ×2 (17:54→23:49)
[2017-12-30] MEDS: ENOXAPARIN 80 MG/0.8 ML SYRINGE SQ SCH (19:20)
[2017-12-30] MEDS ORDERED: SENNOSIDES/DOCUSATE SODIUM 1 TAB TABLET PO SCH (21:00)
[2017-12-31] MEDS: CLINDAMYCIN 600 MG in DEXTROSE 5% IN WATER 50 ML IV SCH ×3 (05:33→17:58)
[2017-12-31] MEDS: 0.9 % SODIUM CHLORIDE 10 ML SYRINGE IV SCH ×3 (05:33→21:26)
[2017-12-31 05:41] LABS: Mean Cell Volume 91.5 fL (80.0-100.0); Mean Corpuscular HGB Conc 33.8 g/dL (31.0-36.0); Mean Corpuscular Hemoglobin 30.9 pg (26.0-34.0); Platelet Count 244 K/mcL (140-440); RBC 4.03 M/mcL (4.50-5.90); Red Cell Distribution Width 13.4 % (11.5-14.5)
[2017-12-31 06:37] LABS: ALT/SGPT 13 U/l (0-40); Albumin/Globulin Ratio 1.1 (1.0-2.3); Alkaline Phosphatase 52 U/L (39-117); Bilirubin,Direct < 0.2 mg/dL (0.0-0.3); Blood Urea Nitrogen 17 mg/dl (8-23); Gamma Glutamyl Transpeptidase 32 U/L (8-61); Uric Acid 5.5 mg/dL (2.5-8.0)
[2017-12-31 07:01] LABS: Eosinophils % (Manual) 3 % (0-7); Lymphocytes % 19 % (15-49); Monocytes % (Manual) 7 % (1-12); Platelet Estimate NORMAL (NORMAL); RBC Morphology NORMAL (NORMAL); Segmented Neutrophils % 71 % (38-78)
[2017-12-31] MEDS ORDERED: cefTRIAXone 2 GM VIAL IV SCH (09:00)
[2017-12-31] MEDS: ENOXAPARIN 80 MG/0.8 ML SYRINGE SQ SCH ×2 (09:20→21:26)
[2017-12-31] MEDS: FUROSEMIDE 20 MG/2 ML VIAL IV SCH ×3 (09:45→21:26)
[2017-12-31 09:51] LABS: Creatine Kinase 169 IU/L (24-195); Creatine Kinase MB 8.4 ng/ml (0-4.9)
[2017-12-31] MEDS: BUDESONIDE 0.5 MG/2 ML AMPUL.NEB NEB SCH ×2 (10:39→21:11)
[2017-12-31] MEDS: DOCUSATE SODIUM 100 MG CAPSULE PO SCH ×2 (10:57→21:27)
[2017-12-31] MEDS: 0.9 % SODIUM CHLORIDE 1,000 ML IV SCH (12:36)
--- NOTE | 2017-12-31 13:24 | Internal Med Progress Note ---
Medical - PN: Subj Patient information: Note initiated : 12/31/17 at 1:21 pm Service Date, if different from initiated Date: [] Patient: Philipp Connelly a 77 y/o M admitted on 12/28/17 for Weakness/Pneumonia , UTI. Chief Complaint: [] Interval history: Mr. Connelly is a 77 year old M who lives fairly independently and was in his baseline state of health until over the last 1 week patient has noticed uppersymptoms including cough along with wheezing. Symptoms have progressed to dyspnea on minimal exertion/breast along with associated productive yellow- green sputum. Patient denies any sick contacts. He is up-to-date on his vaccine. Patient noted associated fever. He denies smoking. He has been unable to eat over the last 24 hours. He has not had a sleep last 48 hours due to extreme shortness of breath. he has been unable to function or perform activities of daily living. With increasing concerns family brought him to the ER. initial workup was significant for left lower lobe infiltrates suggestive of pneumonia along with pyuria, white count 15,000. Patient received antibiotics and subsequently hospitalist service consulted At the time of evaluation patient is remarkably short of breath and anxious and unable to talk in full sentences.. He was however able to provide answers to most of the questions including review of systems. He denies headache photophobia and nausea vomiting diarrhea dysuria or bloody stools weight loss glandular swelling. He denies joint pain or rash. 12/29-patient doing well. Persistent wheezing but had a restful night. On 3 L oxygen. On bronchodilators and antibiotics. White count down from 15->14. no overnight events including worsening shortness of breath chest pain. Tolerating diet. Ongoing physical therapy. 12/30- patient complains of left-sided substernal chest pain. Rapid response was called. Stat EKG shows Q waves anterior leads. Cardiac enzymes pending. Morphine/aspirin/nitrate given patient on high flow oxygen. Chest pain described more as a tightness however worsening with deep inspiration and located at the left lateral aspect. Patient gives a history of prior coronary artery disease/stenting 2000 at [facility]. Differential includes acute coronary syndrome/PE with infarct. Full dose Lovenox administered. Await cardiac enzymes and if negative will run CT angiogram chest. Transfer to ICU Chest imaging shows worsening bibasilar infiltrates. Antibiotics extended to cover anaerobes last gram negatives in light of risk of aspiration. case discussed [facility] agent broker Dr. Sergio Lloyd. Discussed EKG and elevated troponin findings. [employer] Flow Team Member possible opinion that a mild elevation would not require emergent cardiac catheterization. He advised to continue treatment of pneumonia and scheduled for an outpatient stress test on discharge. Patient is currently on full dose anticoagulation. Initial set of cardiac enzymes negative Subsequent sets positive with troponin uptrending to 0.15 and sensibility 0.35. On full dose anticoagulation as per cardiology recommendations. no evidence of PE on CT angiogram except for bibasilar pneumonia and severe emphysema 12/31- patient doing better. No chest pain. Troponins downtrending 2.27 per week of 0.35. Continue full dose anticoagulation along with aspirin and statin. Scheduled outpatient stress test. Continue antibiotic coverage for pneumonia along with aspiration precautions.white count down to 11,000. BNP elevated at 1874. Echocardiogram to rule out wall motion abnormality and assess EF. Start diuresis. no overnight events including fever chills nausea vomiting. Patient ambulating tolerating diet and physical therapy - Constitutional Vitals: Vital Signs Temp Pulse Resp BP Pulse Ox 98.3 F 67 18 103/55 92 12/31/17 12:00 12/31/17 12:00 12/31/17 12:00 12/31/17 12:00 12/31/17 12:00 Period Temp Pulse Resp BP Sys/Raines Pulse Ox Last 24 Hr 97.7 F-99.3 F 52-72 12-24 102-122/55-75 91-96 Intake and Output 12/30/17 12/31/17 12/31/17 21:59 05:59 13:59 Intake Total 1174 / 1174 234 / 234 54 / 54 Output Total 151 / 151 2 / 2 Balance 1023 / 1023 232 / 232 54 / 54 Weight 174 lb Intake & Output: Intake & Output 12/30/17 12/31/17 12/31/17 21:59 05:59 13:59 Intake Total 1174 / 1174 234 / 234 54 / 54 Output Total 151 / 151 2 / 2 Balance 1023 / 1023 232 / 232 54 / 54 Weight 174 lb Intake: IV 54 / 54 54 / 54 54 / 54 Cleocin 600 mg In Dextrose 5% 54 / 54 54 / 54 54 / 54 in Water 50 ml @ 100 mls/hr IV Q6H [facility] Rx#:[id number] Oral 1120 / 1120 180 / 180 Output: Void Amount 150 / 150 # of times incontinent of urine 2 / 2 Other: Stool Size Moderate Moderate Stool Color Brown Brown Stool Consistency Loose Soft Formed # Voids 1 1 1 # Bowel Movements 1 General appearance: no acute distress Exam: alert oriented nonlabored breathing on 2 L oxygen Nondistended abdomen No anxiety Medical - PN: Obj Da - Labs CBC & Chem 7: 12/31/17 04:30 12/31/17 04:30 Labs: Abnormal Lab Results 12/31/17 12/31/17 12/31/17 08:11 08:11 04:30 WBC RBC Hgb Hct Lymph % (Auto) Gran # [place] # (Auto) Lymphocytes % Reactive Lymphocytes APTT Carbon Dioxide 20 L Creatinine Glucose Phosphorus CK-MB (CK-2) 8.4 H Troponin T 0.27 H* NT-Pro-B Natriuret Pep 1874.0 H Total Protein 5.7 L Albumin 3.0 L Albumin/Globulin Ratio Urine Protein Urine Occult Blood Urine Urobilinogen Urine RBC Urine WBC 12/31/17 12/31/17 12/30/17 04:30 00:58 17:27 WBC RBC 4.03 L Hgb 12.5 L Hct 36.9 L Lymph % (Auto) Gran # [place] # (Auto) Lymphocytes % Reactive Lymphocytes APTT Carbon Dioxide Creatinine Glucose Phosphorus CK-MB (CK-2) Troponin T 0.35 H* 0.14 H* NT-Pro-B Natriuret Pep Total Protein Albumin Albumin/Globulin Ratio Urine Protein Urine Occult Blood Urine Urobilinogen Urine RBC Urine WBC 12/30/17 12/30/17 12/30/17 11:50 11:50 11:50 WBC 11.4 H RBC 4.30 L Hgb 13.2 L Hct 39.5 L Lymph % (Auto) 13.1 L Gran # 8.6 H [place] # (Auto) 1.0 H Lymphocytes % Reactive Lymphocytes APTT 38 H Carbon Dioxide 19 L Creatinine Glucose 143 H Phosphorus CK-MB (CK-2) Troponin T NT-Pro-B Natriuret Pep Total Protein Albumin 2.9 L Albumin/Globulin Ratio 0.9 L Urine Protein Urine Occult Blood Urine Urobilinogen Urine RBC Urine WBC 12/30/17 12/30/17 12/29/17 05:13 05:13 03:25 WBC RBC 3.96 L Hgb 12.3 L Hct 36.1 L Lymph % (Auto) Gran # [place] # (Auto) Lymphocytes % 9 L Reactive Lymphocytes 3 H APTT Carbon Dioxide Creatinine Glucose 123 H Phosphorus 2.6 L 2.1 L CK-MB (CK-2) Troponin T NT-Pro-B Natriuret Pep Total Protein 5.6 L 5.8 L Albumin 2.9 L 3.1 L Albumin/Globulin Ratio Urine Protein Urine Occult Blood Urine Urobilinogen Urine RBC Urine WBC 12/29/17 12/28/17 12/28/17 03:25 16:36 16:33 WBC 14.0 H RBC 4.12 L Hgb 12.7 L Hct 37.6 L Lymph % (Auto) Gran # [place] # (Auto) Lymphocytes % Reactive Lymphocytes APTT Carbon Dioxide Creatinine 1.3 H Glucose Phosphorus CK-MB (CK-2) Troponin T NT-Pro-B Natriuret Pep Total Protein Albumin Albumin/Globulin Ratio Urine Protein 30 A Urine Occult Blood 0.2 A Urine Urobilinogen 2.0 A Urine RBC 17 H Urine WBC 9 H 12/28/17 16:33 WBC 15.1 H RBC Hgb Hct Lymph % (Auto) 14.5 L Gran # 11.1 H [place] # (Auto) 1.5 H Lymphocytes % Reactive Lymphocytes APTT Carbon Dioxide Creatinine Glucose Phosphorus CK-MB (CK-2) Troponin T NT-Pro-B Natriuret Pep Total Protein Albumin Albumin/Globulin Ratio Urine Protein Urine Occult Blood Urine Urobilinogen Urine RBC Urine WBC Meds: Medications Acetaminophen (Tylenol) 650 mg PO Q4-6HP PRN PRN Reason: PAIN/FEVER > 101 Albuterol/Ipratropium (Duoneb) 3 ml NEB Q4HP PRN PRN Reason: Shortness Of Breath Last Admin: 12/31/17 10:39 Dose: 3 ml Budesonide (Pulmicort) 0.5 mg NEB Q12 [facility] Last Admin: 12/31/17 10:39 Dose: 0.5 mg Ceftriaxone Sodium (Rocephin) 2 gm IV Q24H [facility] Last Admin: 12/31/17 09:30 Dose: 2 gm Docusate Sodium (Colace) 100 mg PO BID [facility] Last Admin: 12/31/17 10:57 Dose: Not Given Enoxaparin Sodium (Lovenox) 80 mg SQ BID [facility] Last Admin: 12/31/17 09:20 Dose: 80 mg Furosemide (Lasix) 20 mg IV Q8 [facility] Last Admin: 12/31/17 09:45 Dose: 20 mg Clindamycin Phosphate 600 mg/ (Dextrose) 54 mls @ 100 mls/hr IV Q6H [facility] Last Admin: 12/31/17 11:03 Dose: 100 mls/hr Magnesium Sulfate (Magnesium Sulfate) 2 gm in 50 mls @ 50 mls/hr IV UD PRN PRN Reason: MG = or < 1.7 Sodium Chloride (Sodium Chloride 0.9%) 1,000 mls @ 50 mls/hr IV .Q20H [facility] Last Admin: 12/31/17 12:36 Dose: Not Given Sodium Chloride (Sodium Chloride 0.9%) 1,000 mls @ 0 mls/hr IV .Q0M [facility] PRN Reason: KVO Acetaminophen (Ofirmev) 1,000 mg in 100 mls @ 200 mls/hr IV Q6HP PRN PRN Reason: PAIN/FEVER > 101 Last Admin: 12/31/17 02:21 Dose: 200 mls/hr Nitroglycerin (Nitrostat) 0.4 mg SL Q5M PRN PRN Reason: Chest Pain Ondansetron HCl (Zofran) 4 mg IV Q4-6HP PRN PRN Reason: Nausea And Vomiting Potassium Chloride (Klor-Con) 40 meq PO DAILYP PRN PRN Reason: K+ < 3.5 Senna/Docusate Sodium (Senna Plus Tablet) 1 tab PO HS [facility] Last Admin: 12/30/17 20:51 Dose: Not Given Sodium Chloride (Saline Flush) 10 ml IV Q8 [facility] Last Admin: 12/31/17 05:33 Dose: 10 ml Medical - PN: A/P - Time Spent With Patient Total time spent is greater than 50% in coordination of care (as documented) at patient's floor/unit and/or counseling patient: 25 - 35 minutes (1) Community acquired pneumonia Status: Acute Assessment and plan: Assessment- 77-year-old history of active smoking/COPD admitted with hypoxic respiratory failure/left lower lobe pneumonia * Bibasal pneumonia likely aspiration-clinical improvement noted on clindamycin/ Rocephin.continue aspiration precautions * Hypoxic respiratory failure secondary to bibasal pneumonia-clinically improving now on 2 L oxygen * Non-ST elevation myocardial infarction-JACQUELYN score 3. Case discussed with [place] agent broker who recommended outpatient stress testing as elevation in troponin is likely secondary to pneumonia with resultant demand ischemia. patient is on full dose anticoagulation/aspirin and statin * Severe underlying emphysema/COPD with exacerbation with active smoking- continue supplement oxygen/bronchodilators/inhaledsteroids * complicated UTI- continue antibiotic coverage * hyperlipidemia on statin * tobacco dependence-counseled for cessation. Patient unwilling to quit. * Full code * Prophylaxis heparin Plan * Continue antibiotic coverage * Aspiration precautions * Aspirin and statin, full dose anticoagulation Current Visit: No Medical - PN: Qual - VTE Deep Vein Thrombosis/Pulmonary Embolism Present on Admission: No
[2017-12-31] MEDS: HEPARIN 5,000 UNIT/ML VIAL SQ SCH (16:46)
[2017-12-31] MEDS ORDERED: POTASSIUM CHLORIDE 20 MEQ PACKET PO PRN (16:47)
[2017-12-31] MEDS ORDERED: ACETAMINOPHEN 1,000 MG/100 ML BOTTLE IV PRN (16:47)
[2017-12-31] MEDS ORDERED: NITROGLYCERIN 0.4 MG TAB.SUBL SL PRN (16:47)
[2017-12-31] MEDS ORDERED: 0.9 % SODIUM CHLORIDE 1,000 ML IV SCH ×2 (16:47)
[2017-12-31] MEDS ORDERED: MAGNESIUM SULFATE 2 GM/50 ML BAG IV PRN (16:47)
[2017-12-31] MEDS ORDERED: IPRATROPIUM/ALBUTEROL 3 ML AMPUL.NEB NEB PRN (16:47)
[2017-12-31] MEDS ORDERED: ACETAMINOPHEN 325 MG TABLET PO PRN (16:47)
[2017-12-31] MEDS ORDERED: ONDANSETRON 4 MG/2 ML VIAL IV PRN (16:47)
[2017-12-31] MEDS ORDERED: SIMVASTATIN 40 MG TABLET PO SCH (21:00)
[2017-12-31] MEDS: SIMVASTATIN 40 MG TABLET PO SCH (21:26)
[2017-12-31] MEDS: SENNOSIDES/DOCUSATE SODIUM 1 TAB TABLET PO SCH (21:27)
[2018-01-01] MEDS: CLINDAMYCIN 600 MG in DEXTROSE 5% IN WATER 50 ML IV SCH ×2 (00:47→06:51)
[2018-01-01 06:27] LABS: Mean Cell Volume 91.6 fL (80.0-100.0); Mean Corpuscular HGB Conc 33.2 g/dL (31.0-36.0); Mean Corpuscular Hemoglobin 30.5 pg (26.0-34.0); Platelet Count 322 K/mcL (140-440); RBC 4.75 M/mcL (4.50-5.90); Red Cell Distribution Width 13.3 % (11.5-14.5)
[2018-01-01] MEDS: 0.9 % SODIUM CHLORIDE 10 ML SYRINGE IV SCH ×3 (06:51→20:15)
[2018-01-01] MEDS: FUROSEMIDE 20 MG/2 ML VIAL IV SCH ×2 (06:51→20:15)
[2018-01-01 06:52] LABS: ALT/SGPT 14 U/l (0-40); Albumin 3.4 gm/dL (3.2-5.2); Alkaline Phosphatase 59 U/L (39-117); Bilirubin,Direct < 0.2 mg/dL (0.0-0.3); Blood Urea Nitrogen 20 mg/dl (8-23); Gamma Glutamyl Transpeptidase 44 U/L (8-61); Uric Acid 6.9 mg/dL (2.5-8.0)
[2018-01-01 07:36] LABS: Band Neutrophils % 1 % (0-10); Eosinophils % (Manual) 5 % (0-7); Lymphocytes % 12 % (15-49); Monocytes % (Manual) 6 % (1-12); Platelet Estimate NORMAL (NORMAL); RBC Morphology NORMAL (NORMAL); Segmented Neutrophils % 76 % (38-78)
[2018-01-01] MEDS ORDERED: ASPIRIN 81 MG TAB.CHEW PO SCH (09:00)
[2018-01-01] MEDS ORDERED: cefTRIAXone 2 GM VIAL IV SCH (09:00)
[2018-01-01] MEDS: BUDESONIDE 0.5 MG/2 ML AMPUL.NEB NEB SCH ×2 (09:31→20:26)
[2018-01-01] MEDS: ASPIRIN 81 MG TAB.CHEW PO SCH (10:36)
[2018-01-01] MEDS: DOCUSATE SODIUM 100 MG CAPSULE PO SCH ×2 (10:36→20:16)
[2018-01-01] MEDS: ENOXAPARIN 80 MG/0.8 ML SYRINGE SQ SCH (10:59)
[2018-01-01] MEDS ORDERED: LISINOPRIL 5 MG TABLET PO ONE (11:06)
--- NOTE | 2018-01-01 11:07 | Internal Med Progress Note ---
Medical - PN: Subj Patient information: Note initiated : 01/01/18 at 11:04 am Service Date, if different from initiated Date: [] Patient: Philipp Connelly a 77 y/o M admitted on 12/28/17 for Weakness/Pneumonia , UTI. Chief Complaint: [] Interval history: Mr. Connelly is a 77 year old M who lives fairly independently and was in his baseline state of health until over the last 1 week patient has noticed uppersymptoms including cough along with wheezing. Symptoms have progressed to dyspnea on minimal exertion/breast along with associated productive yellow- green sputum. Patient denies any sick contacts. He is up-to-date on his vaccine. Patient noted associated fever. He denies smoking. He has been unable to eat over the last 24 hours. He has not had a sleep last 48 hours due to extreme shortness of breath. he has been unable to function or perform activities of daily living. With increasing concerns family brought him to the ER. initial workup was significant for left lower lobe infiltrates suggestive of pneumonia along with pyuria, white count 15,000. Patient received antibiotics and subsequently hospitalist service consulted At the time of evaluation patient is remarkably short of breath and anxious and unable to talk in full sentences.. He was however able to provide answers to most of the questions including review of systems. He denies headache photophobia and nausea vomiting diarrhea dysuria or bloody stools weight loss glandular swelling. He denies joint pain or rash. 12/29-patient doing well. Persistent wheezing but had a restful night. On 3 L oxygen. On bronchodilators and antibiotics. White count down from 15->14. no overnight events including worsening shortness of breath chest pain. Tolerating diet. Ongoing physical therapy. 12/30- patient complains of left-sided substernal chest pain. Rapid response was called. Stat EKG shows Q waves anterior leads. Cardiac enzymes pending. Morphine/aspirin/nitrate given patient on high flow oxygen. Chest pain described more as a tightness however worsening with deep inspiration and located at the left lateral aspect. Patient gives a history of prior coronary artery disease/stenting 2000 at [facility]. Differential includes acute coronary syndrome/PE with infarct. Full dose Lovenox administered. Await cardiac enzymes and if negative will run CT angiogram chest. Transfer to ICU Chest imaging shows worsening bibasilar infiltrates. Antibiotics extended to cover anaerobes last gram negatives in light of risk of aspiration. [facility] Dr. Sergio Lloyd. Discussed EKG and elevated troponin findings. Marine Engineering Technicians possible opinion that a mild elevation would not require emergent cardiac catheterization. He advised to continue treatment of pneumonia and scheduled for an outpatient stress test on discharge. Patient is currently on full dose anticoagulation. Initial set of cardiac enzymes negative Subsequent sets positive with troponin uptrending to 0.15 and sensibility 0.35. On full dose anticoagulation as per cardiology recommendations. no evidence of PE on CT angiogram except for bibasilar pneumonia and severe emphysema 12/31- patient doing better. No chest pain. Troponins downtrending 2.27 per week of 0.35. Continue full dose anticoagulation along with aspirin and statin. Scheduled outpatient stress test. Continue antibiotic coverage for pneumonia along with aspiration precautions.white count down to 11,000. BNP elevated at 1874. Echocardiogram to rule out wall motion abnormality and assess EF. Start diuresis. no overnight events including fever chills nausea vomiting. Patient ambulating tolerating diet and physical therapy January 01-patient clinically improved. On 2 L oxygen. Ambulating. Tolerating diet. feeling close to baseline. Possible discharge in 24 hours. Discuss discharge plan including stress testing on Friday schedule him to [facility]. echocardiogram reveals EF 35-40%. initiated low-dose YOON inhibitor/beta jessika in light of systolic heart failure/depressed EF - Constitutional Vitals: Vital Signs Temp Pulse Resp BP Pulse Ox 98.5 F 65 22 97/64 96 01/01/18 07:13 01/01/18 07:13 01/01/18 07:13 01/01/18 07:13 01/01/18 07:13 Period Temp Pulse Resp BP Sys/Raines Pulse Ox Last 24 Hr 97.7 F-98.5 F 65-71 16-24 96-111/55-66 90-96 Intake and Output 12/31/17 01/01/18 01/01/18 21:59 05:59 13:59 Intake Total 54 / 54 254 / 254 54 / 54 Output Total 900 / 900 1050 / 1050 Balance -846 / -846 -796 / -796 Weight 170 lb 8 oz Intake & Output: Intake & Output 12/31/17 01/01/18 01/01/18 21:59 05:59 13:59 Intake Total 54 / 54 254 / 254 54 / 54 Output Total 900 / 900 1050 / 1050 Balance -846 / -846 -796 / -796 / 54 Weight 170 lb 8 oz Intake: IV 54 / 54 54 / 54 54 / 54 Cleocin 600 mg In Dextrose 5% 54 54 / 54 54 / 54 in Water 50 ml @ 100 mls/hr IV Q6H [facility] Rx#:[id number] Oral 200 / 200 Output: Void Amount 900 / 900 1050 / 1050 Other: Stool Size Moderate Stool Color Brown Stool Consistency Soft # Voids 2 3 # Bowel Movements 1 General appearance: no acute distress Exam: alert oriented nontender abdomen Diminished breath sounds bases no lymphedema No anxiety Medical - PN: Obj Da - Labs CBC & Chem 7: 01/01/18 05:25 01/01/18 05:25 Labs: Abnormal Lab Results 01/01/18 01/01/18 12/31/17 05:25 05:25 08:11 WBC 12.9 H RBC Hgb Hct Lymph % (Auto) Gran # [place] # (Auto) Lymphocytes % 12 L Reactive Lymphocytes APTT Carbon Dioxide 21 L Glucose Phosphorus CK-MB (CK-2) 8.4 H Troponin T NT-Pro-B Natriuret Pep Total Protein Albumin Albumin/Globulin Ratio 12/31/17 12/31/17 12/31/17 08:11 04:30 04:30 WBC RBC 4.03 L Hgb 12.5 L Hct 36.9 L Lymph % (Auto) Gran # [place] # (Auto) Lymphocytes % Reactive Lymphocytes APTT Carbon Dioxide 20 L Glucose Phosphorus CK-MB (CK-2) Troponin T 0.27 H* NT-Pro-B Natriuret Pep 1874.0 H Total Protein 5.7 L Albumin 3.0 L Albumin/Globulin Ratio 12/31/17 12/30/17 12/30/17 00:58 17:27 11:50 WBC RBC Hgb Hct Lymph % (Auto) Gran # [place] # (Auto) Lymphocytes % Reactive Lymphocytes APTT Carbon Dioxide 19 L Glucose 143 H Phosphorus CK-MB (CK-2) Troponin T 0.35 H* 0.14 H* NT-Pro-B Natriuret Pep Total Protein Albumin 2.9 L Albumin/Globulin Ratio 0.9 L 12/30/17 12/30/17 12/30/17 11:50 11:50 05:13 WBC 11.4 H RBC 4.30 L Hgb 13.2 L Hct 39.5 L Lymph % (Auto) 13.1 L Gran # 8.6 H [place] # (Auto) 1.0 H Lymphocytes % Reactive Lymphocytes APTT 38 H Carbon Dioxide Glucose Phosphorus 2.6 L CK-MB (CK-2) Troponin T NT-Pro-B Natriuret Pep Total Protein 5.6 L Albumin 2.9 L Albumin/Globulin Ratio 12/30/17 05:13 WBC RBC 3.96 L Hgb 12.3 L Hct 36.1 L Lymph % (Auto) Gran # [place] # (Auto) Lymphocytes % 9 L Reactive Lymphocytes 3 H APTT Carbon Dioxide Glucose Phosphorus CK-MB (CK-2) Troponin T NT-Pro-B Natriuret Pep Total Protein Albumin Albumin/Globulin Ratio Meds: Medications Acetaminophen (Tylenol) 650 mg PO Q4-6HP PRN PRN Reason: PAIN/FEVER > 101 Albuterol/Ipratropium (Duoneb) 3 ml NEB Q4HP PRN PRN Reason: Shortness Of Breath Aspirin (Aspirin) 81 mg PO DAILY [facility] Last Admin: 01/01/18 10:36 Dose: 81 mg Budesonide (Pulmicort) 0.5 mg NEB Q12 [facility] Last Admin: 01/01/18 09:31 Dose: Not Given Ceftriaxone Sodium (Rocephin) 2 gm IV Q24H [facility] Last Admin: 01/01/18 10:40 Dose: 2 gm Docusate Sodium (Colace) 100 mg PO BID [facility] Last Admin: 01/01/18 10:36 Dose: 100 mg Enoxaparin Sodium (Lovenox) 80 mg SQ BID [facility] Last Admin: 01/01/18 10:59 Dose: 80 mg Furosemide (Lasix) 20 mg IV Q8 [facility] Last Admin: 01/01/18 06:51 Dose: 20 mg Clindamycin Phosphate 600 mg/ (Dextrose) 54 mls @ 100 mls/hr IV Q6H [facility] Last Infusion: 01/01/18 07:34 Dose: Infused Magnesium Sulfate (Magnesium Sulfate) 2 gm in 50 mls @ 50 mls/hr IV UD PRN PRN Reason: MG = or < 1.7 Acetaminophen (Ofirmev) 1,000 mg in 100 mls @ 200 mls/hr IV Q6HP PRN PRN Reason: PAIN/FEVER > 101 Ondansetron HCl (Zofran) 4 mg IV Q4-6HP PRN PRN Reason: Nausea And Vomiting Potassium Chloride (Klor-Con) 40 meq PO DAILYP PRN PRN Reason: K+ < 3.5 Senna/Docusate Sodium (Senna Plus Tablet) 1 tab PO HS [facility] Last Admin: 12/31/17 21:27 Dose: Not Given Simvastatin (Zocor) 40 mg PO HS [facility] Last Admin: 12/31/17 21:26 Dose: 40 mg Sodium Chloride (Saline Flush) 10 ml IV Q8 [facility] Last Admin: 01/01/18 06:51 Dose: 10 ml Medical - PN: A/P - Time Spent With Patient Total time spent is greater than 50% in coordination of care (as documented) at patient's floor/unit and/or counseling patient: 25 - 35 minutes (1) Community acquired pneumonia Status: Acute Assessment and plan: Assessment- 77-year-old history of active smoking/COPD admitted with hypoxic respiratory failure/left lower lobe pneumonia * Bibasal pneumonia likely aspiration-clinical improvement noted on antibiotic coverage. Continue aspiration precautions * Hypoxic respiratory failure secondary to bibasal pneumonia-clinically improved * Non-ST elevation myocardial infarction-JACQUELYN score 3. Case discussed with [place] real estate instructor who recommended outpatient stress testing as elevation in troponin is likely secondary to pneumonia with resultant demand ischemia. patient is on full dose anticoagulation/aspirin and statin. echocardiogram reveals EF 35%. initiate beta jessika/YOON inhibitor/Diuretics. * Severe underlying emphysema/COPD with exacerbation with active smoking- continue supplement oxygen/bronchodilators/inhaledsteroids * complicated UTI- continue antibiotic coverage * hyperlipidemia on statin * tobacco dependence-counseled for cessation. Patient unwilling to quit. * Full code * Prophylaxis heparin Plan * DC Rocephin/Clindamycin. * Start oral Augmentin * Change diuretics to twice daily * Add low-dose beta jessika/YOON inhibitor * Outpatient stress testing Friday at [facility] as per cardiology recommendations * continue Aspiration precautions * Aspirin and statin,beta jessika and YOON inhibitor. * DC full dose anticoagulation Current Visit: No Medical - PN: Qual - VTE Deep Vein Thrombosis/Pulmonary Embolism Present on Admission: No
[2018-01-01] MEDS: METOPROLOL SUCCINATE 25 MG TAB.XL.24H PO SCH (13:17)
[2018-01-01] MEDS: AMOXICILLIN/POTASSIUM CLAV 875 MG TABLET PO SCH (18:18)
[2018-01-01] MEDS: SENNOSIDES/DOCUSATE SODIUM 1 TAB TABLET PO SCH (20:15)
[2018-01-01] MEDS: SIMVASTATIN 40 MG TABLET PO SCH (20:15)
[2018-01-02 06:15] LABS: Mean Cell Volume 91.5 fL (80.0-100.0); Mean Corpuscular HGB Conc 33.2 g/dL (31.0-36.0); Mean Corpuscular Hemoglobin 30.4 pg (26.0-34.0); Platelet Count 337 K/mcL (140-440); RBC 4.97 M/mcL (4.50-5.90); Red Cell Distribution Width 13.4 % (11.5-14.5)
[2018-01-02] MEDS: 0.9 % SODIUM CHLORIDE 10 ML SYRINGE IV SCH ×2 (06:15→17:55)
[2018-01-02 06:32] LABS: ALT/SGPT 29 U/l (0-40); Albumin 3.3 gm/dL (3.2-5.2); Alkaline Phosphatase 61 U/L (39-117); Bilirubin,Direct < 0.2 mg/dL (0.0-0.3); Blood Urea Nitrogen 29 mg/dl (8-23); Gamma Glutamyl Transpeptidase 52 U/L (8-61); Uric Acid 8.3 mg/dL (2.5-8.0)
[2018-01-02 07:25] LABS: Eosinophils % (Manual) 3 % (0-7); Lymphocytes % 16 % (15-49); Monocytes % (Manual) 6 % (1-12); Platelet Estimate NORMAL (NORMAL); RBC Morphology NORMAL (NORMAL); Segmented Neutrophils % 74 % (38-78)
--- NOTE | 2018-01-02 08:09 | Discharge Summary ---
Medical - DS: Prov Patient information: Note initiated : 01/02/18 at 8:06 am Service Date, if different from initiated Date: [] Patient: Philipp Connelly 77 y/o M admitted on 12/28/17 for Weakness/Pneumonia , UTI. Chief Complaint: [] Date of admission: 12/28/17 22:24 Discharge date: 01/02/18 Primary care physician: Lanette Powers Consults: 01/01/18 15:27 Consult to Physician [CONS] Routine Comment: Consulting Provider: Emile Mars Reason For Exam: Physician to Consult Medical - DS: Meds - Discharge Medications Prescriptions: Amoxicillin/Potassium Clav [Augmentin] 875 mg PO BIDCC #10 tab Aspirin [Ecotrin] 81 mg PO QDAY #30 tablet. Furosemide [Lasix] 20 mg PO Q48 #14 tab Lisinopril [Zestril] 2.5 mg PO DAILY #30 tab Metoprolol Succinate [Toprol Xl] 6.25 mg PO DAILY #30 tab.xl.24h Simvastatin [Zocor] 40 mg PO HS #30 tab Active and Home Medications: Home Medications [facility] Vitamin D caps PO QDAY 03/08/16 [History Confirmed 03/13/16 Last Taken 12/26 04:00] ascorbic acid (vitamin C) ER 500 mg capsule,extended release 500 mg PO QDAY [History Confirmed 12/28/17 Last Taken 12/26/17 04:00] Amoxicillin/Potassium Clav [Augmentin] 875 mg PO BIDCC #10 tab 01/01/18 [Rx Last Taken Unknown] Aspirin [Ecotrin] 81 mg PO QDAY #30 tablet. 01/01/18 [Rx Last Taken Unknown] Furosemide [Lasix] 20 mg PO Q48 #14 tab 01/01/18 [Rx Last Taken Unknown] Lisinopril [Zestril] 2.5 mg PO DAILY #30 tab 01/01/18 [Rx Last Taken Unknown] Metoprolol Succinate [Toprol Xl] 6.25 mg PO DAILY #30 tab.xl.24h 01/01/18 [Rx Last Taken Unknown] Simvastatin [Zocor] 40 mg PO HS #30 tab 01/01/18 [Rx Last Taken Unknown] Medical - DS: Hosp Hospital course: Discharge diagnosis * Bibasal pneumonia likely aspiration-clinical improvement noted on antibiotic coverage. Continue aspiration precautions. ccontinue antibiotics for additional 5 days * Hypoxic respiratory failure secondary to bibasal pneumonia-clinically improved. RT to perform exercise oximetry from home oxygen evaluation * Non-ST elevation myocardial infarction-JACQUELYN score 3. Case discussed with [place] button breaker operator who recommended outpatient stress testing as elevation in troponin is likely secondary to pneumonia with resultant demand ischemia. patient is on aspirin and statin. echocardiogram reveals EF 35%. initiate beta jessika/YOON inhibitor/Diuretics. follow-up [place] for outpatient stress testing as scheduled. * Severe underlying emphysema/COPD with exacerbation with active smoking- continue supplement oxygen/bronchodilators/inhaled steroids * Complicated UTI- clinically resolved on antibiotics * Hyperlipidemia on statin * tobacco dependence-counseled for cessation. Patient unwilling to quit. BRIEF HOSPITAL COURSE Mr. Connelly is a 77 year old M who lives fairly independently and was in his baseline state of health until over the last 1 week patient has noticed uppersymptoms including cough along with wheezing. Symptoms have progressed to dyspnea on minimal exertion/breast along with associated productive yellow- green sputum. Patient denies any sick contacts. He is up-to-date on his vaccine. Patient noted associated fever. He denies smoking. He has been unable to eat over the last 24 hours. He has not had a sleep last 48 hours due to extreme shortness of breath. he has been unable to function or perform activities of daily living. With increasing concerns family brought him to the ER. initial workup was significant for left lower lobe infiltrates suggestive of pneumonia along with pyuria, white count 15,000. Patient received antibiotics and subsequently hospitalist service consulted At the time of evaluation patient is remarkably short of breath and anxious and unable to talk in full sentences.. He was however able to provide answers to most of the questions including review of systems. He denies headache photophobia and nausea vomiting diarrhea dysuria or bloody stools weight loss glandular swelling. He denies joint pain or rash. 12/29-patient doing well. Persistent wheezing but had a restful night. On 3 L oxygen. On bronchodilators and antibiotics. White count down from 15->14. no overnight events including worsening shortness of breath chest pain. Tolerating diet. Ongoing physical therapy. 12/30- patient complains of left-sided substernal chest pain. Rapid response was called. Stat EKG shows Q waves anterior leads. Cardiac enzymes pending. Morphine/aspirin/nitrate given patient on high flow oxygen. Chest pain described more as a tightness however worsening with deep inspiration and located at the left lateral aspect. Patient gives a history of prior coronary artery disease/stenting 2000 at [facility]. Differential includes acute coronary syndrome/PE with infarct. Full dose Lovenox administered. Await cardiac enzymes and if negative will run CT angiogram chest. Transfer to ICU Chest imaging shows worsening bibasilar infiltrates. Antibiotics extended to cover anaerobes last gram negatives in light of risk of aspiration. case discussed with[place] button breaker operator Dr. Sergio Lloyd. Discussed EKG and elevated troponin findings. Tank Truck Loader possible opinion that a mild elevation would not require emergent cardiac catheterization. He advised to continue treatment of pneumonia and scheduled for an outpatient stress test on discharge. Patient is currently on full dose anticoagulation. Initial set of cardiac enzymes negative Subsequent sets positive with troponin uptrending to 0.15 and sensibility 0.35. On full dose anticoagulation as per cardiology recommendations. no evidence of PE on CT angiogram except for bibasilar pneumonia and severe emphysema 12/31- patient doing better. No chest pain. Troponins downtrending 2.27 per week of 0.35. Continue full dose anticoagulation along with aspirin and statin. Scheduled outpatient stress test. Continue antibiotic coverage for pneumonia along with aspiration precautions.white count down to 11,000. BNP elevated at 1874. Echocardiogram to rule out wall motion abnormality and assess EF. Start diuresis. no overnight events including fever chills nausea vomiting. Patient ambulating tolerating diet and physical therapy January 01-patient clinically improved. On 2 L oxygen. Ambulating. Tolerating diet. feeling close to baseline. Possible discharge in 24 hours. Discuss discharge plan including stress testing on Friday schedule him to [facility]. echocardiogram reveals EF 35-40%. initiated low-dose YOON inhibitor/beta jessika in light of systolic heart failure/depressed EF January 02-patient doing well. Tolerating metoprolol/low disease. Continue antibiotics for additional 5 days. Afebrile. RT to perform exercise oximetry from home oxygen qualification. Patient unwilling to quit smoking. He is at baseline and wanting to be discharged. Discharge medication instructions as below. Discharge diagnosis: . - Time Spent with Patient Total time spent providing and/or coordinating discharge services: Greater than 30 minutes Medical - DS: Exam - Constitutional Vitals: Vital Signs Temp Pulse Pulse Resp BP BP Pulse Ox 01/02/18 07:25 98.0 F 16 96/61 93 01/02/18 03:38 97.6 F 67 18 90/58 92 01/01/18 23:31 97.9 F 71 20 95/59 91 01/01/18 20:27 64 16 01/01/18 19:33 98.3 F 78 18 102/68 92 01/01/18 16:00 98.5 F 69 22 105/65 93 01/01/18 12:00 98.1 F 66 22 101/66 91 Intake and Output 01/01/18 01/02/18 01/02/18 21:59 05:59 13:59 Intake Total 1160 / 1160 150 / 150 1000 / 1000 Output Total 925 / 925 600 / 600 Balance 235 / 235 -450 / -450 1000 / 1000 Intake: IV 1000 / 1000 Sodium Chloride 0.9% 1,000 ml @ 1000 / 1000 50 mls/hr IV .Q20H [facility] Rx#: [id number] Oral 1160 / 1160 150 / 150 Output: Void Amount 925 / 925 600 / 600 Other: Meal Dinner Percent of Meal Consumed 100% Stool Color Brown Stool Consistency Soft Loose # Voids 1 # Bowel Movements 1 Weight 166 lb 14.4 oz Medical - DS: Data Labs on day of discharge: Labs from last 24 hours 01/02/18 01/02/18 12/28/17 05:03 05:03 16:36 WBC 13.3 H RBC 4.97 Hgb 15.1 Hct 45.5 MCV 91.5 MCH 30.4 MCHC 33.2 RDW 13.4 Plt Count 337 MPV 7.6 Total Counted 100 Seg Neutrophils % 74 Band Neutrophils % Not Reportable Lymphocytes % 16 Monocytes % (Manual) 6 Eosinophils % (Manual) 3 Reactive Lymphocytes 1 Platelet Estimate Normal RBC Morphology Normal Sodium 134 Potassium 4.5 Chloride 101 Carbon Dioxide 22 Anion Gap 11.0 BUN 29 H Creatinine 1.2 GFR Calculation 58 Glucose 96 Uric Acid 8.3 H Calcium 9.6 Phosphorus 3.0 Magnesium 2.4 Total Bilirubin 0.3 Direct Bilirubin < 0.2 GGT 52 AST 41 H ALT 29 Alkaline Phosphatase 61 Lactate Dehydrogenase 224 Total Protein 6.7 Albumin 3.3 Globulin 3.4 Albumin/Globulin Ratio 1.0 Triglycerides 137 Ur L.pneumophila Ag Not detected Preliminary micro results at discharge 12/29/17 03:25 Blood Culture - Preliminary Blood 12/29/17 03:32 Blood Culture - Preliminary Blood Medical - DS: A/P - Patient/Caregiver Discharge Instructions Activity: increase activity as tolerated, resume usual activities as tolerated Diet: Low Sodium (2gm) Additional Instructions: You are scheduled for a Cardio Stress Test at [facility] for January 02 @ !2:00 pm. Nothing to eat or drink 6 hours prior. No caffeine 24 hours prior to procedure. Check in to out patient registration at 11:45. for questions. Follow-up PCP in 5 days. continue antibiotics for additional 48 hours I recommend primary care physician to check CBC BMP UA as a posthospital follow- up and Chest x-ray in 1 week. oxygen as per RT recommendations. RT to perform exercise oximetry Please schedule pulmonary function test as outpatient in 3 weeks Continue aggressive bowel regimen to prevent constipation Continue fall precautions daily weights measurements and take additional 40 mg Lasix for 3 days if weight gain over 4 pounds over baseline or worsening shortness of breath and call primary care physician if inadequate response to Lasix Continue aggressive PT OT evaluation and treatment at [facility]. ST eval and treatment if indicated All meals on chair sitting upright at 90 degrees to prevent aspiration Return to ER if worsening fever chills shortness of breath, diarrhea, bleeding Review risk and side effect profile of medications including antibiotics. Side effect may include mild to severe reaction including rash, diarrhea, cdiff and even which can be prevented by close follow-up with PCP and monitoring for side effects Refrain from smoking and alcohol Continue diet and activity as advised Discussed importance of medication adherence Please review medication list with patient prior to discharge Please schedule follow-up with PCP/Providers prior to discharge and provide printouts Portions of this chart may have been created with [employer] voice recognition software. Occasional wrong-word or ?sound-like? substitutions may have occurred due to the inherent limitations of voice recognition software. Please read the chart carefully and recognize, using context, where the substitutions have occurred. CC- PCP Prescriptions: Amoxicillin/Potassium Clav [Augmentin] 875 mg PO BIDCC #10 tab Aspirin [Ecotrin] 81 mg PO QDAY #30 tablet. Furosemide [Lasix] 20 mg PO Q48 #14 tab Lisinopril [Zestril] 2.5 mg PO DAILY #30 tab Metoprolol Succinate [Toprol Xl] 6.25 mg PO DAILY #30 tab.xl.24h Simvastatin [Zocor] 40 mg PO HS #30 tab - Problem Maintenance (1) Community acquired pneumonia Status: Acute - Follow up Plan Follow up with: Lanette Powers ARNP [Primary Care Provider] - Disposition: Home, Self-Care Prognosis: Fair Rehab Potential: Fair I certify that the patient requires SNF services: No Overall status at discharge: patient is progressing back to baseline Medical - DS: Qual - VTE Deep Vein Thrombosis/Pulmonary Embolism Present on Admission: No
[2018-01-02] MEDS ORDERED: ENOXAPARIN 40 MG/0.4 ML SYRINGE SQ SCH (09:00)
[2018-01-02] MEDS ORDERED: LISINOPRIL 5 MG TABLET PO SCH (09:00)
[2018-01-02] MEDS: METOPROLOL SUCCINATE 25 MG TAB.XL.24H PO SCH (09:04)
[2018-01-02] MEDS: ASPIRIN 81 MG TAB.CHEW PO SCH (09:07)
[2018-01-02] MEDS: FUROSEMIDE 20 MG/2 ML VIAL IV SCH (09:11)
[2018-01-02] MEDS: AMOXICILLIN/POTASSIUM CLAV 875 MG TABLET PO SCH ×2 (09:14→17:55)
[2018-01-02] MEDS: DOCUSATE SODIUM 100 MG CAPSULE PO SCH (09:16)
[2018-01-02] MEDS: BUDESONIDE 0.5 MG/2 ML AMPUL.NEB NEB SCH (09:52)
== END 2018-01-02 18:25 | disposition home or self-care (01) | DRG 190 ==
LOC: ED 16:01 → MEDSUR 22:24 → ICU 12-30 20:04 → MEDSUR 12-31 16:30
PROVIDERS: ADMIT Internal Medicine; ATTEND Internal Medicine

== ENCOUNTER 2020-09-07 09:49 | Inpatient (IN) ==
--- NOTE | 2020-09-01 16:35 | XRay Report ---
INDICATION: Pre-Op TECHNIQUE: PA and lateral upright chest x-ray COMPARISON: None FINDINGS: Lungs: Lungs are diffusely abnormal consistent with emphysema. Findings are worse in the upper lobes than the lower lobes. No acute pulmonary parenchymal infiltrate or mass. Heart, vascular: No significant cardiomegaly. Pulmonary vascularity is normal. No pulmonary edema or pulmonary congestion Mediastinum, dariana: No mediastinal widening. No hilar mass Pleura:No pleural fluid. No pleural-based mass or calcification Thoracic spine, ribs: No thoracic compression fracture. Ribs are negative. No fracture. No lytic lesion IMPRESSION: 1. Emphysema 2. No acute pulmonary parenchymal infiltrate. Interpreted and Authenticated by: Bo Cohen 09/01/20
[2020-09-01 19:12] LABS: Basophils % (Auto) 0.8 % (0.0-2.0); Eosinophils # (Auto) 0.35 K/mcL (0.00-0.70); Eosinophils % (Auto) 2.8 % (0.0-7.0); Hematocrit 47.2 % (41.0-55.0); Hemoglobin 15.4 g/dL (13.5-16.5); Lymphocytes # (Auto) 2.58 K/mcL (1.50-4.80); Lymphocytes % (Auto) 20.4 % (15.0-49.0); Mean Cell Volume 91.7 fL (80.0-100.0); Mean Corpuscular HGB Conc 32.6 g/dL (31.0-36.0); Mean Platelet Volume 9.4 fL (7.4-10.4); Monocytes # (Auto) 0.98 K/mcL (0.10-0.90); Monocytes % (Auto) 7.7 % (1.0-12.0); Neutrophils % (Auto) 68.3 % (38.0-78.0); Platelet Count 271 K/mcL (140-440); RBC 5.15 M/mcL (4.50-5.90); Red Cell Distribution Width 13.4 % (11.5-14.5); WBC 12.7 K/mcL (4.5-11.0)
[2020-09-01 19:38] LABS: Blood Urea Nitrogen 22 mg/dL (8-23); Calcium 10.5 mg/dL (8.6-10.4); Carbon Dioxide 25 mmol/L (22-30); Chloride 103 mmol/L (96-108); Glomerular Filtration Rate 51; Glucose 101 mg/dL (70-105)
[2020-09-07] MEDS ORDERED: SCOPOLAMINE 1 PATCH PATCH TOPICAL PRN (10:00)
[2020-09-07] MEDS ORDERED: IPRATROPIUM/ALBUTEROL 3 ML AMPUL.NEB NEB PRN ×2 (10:00→13:33)
[2020-09-07] MEDS ORDERED: FLUCONAZOLE 200 MG/100 ML BAG IV SCH (12:45)
[2020-09-07] MEDS ORDERED: PIPERACILLIN SODIUM/TAZOBACTAM 3.375 GM in DEXTROSE 5% IN WATER 50 ML IV SCH (12:45)
[2020-09-07] MEDS ORDERED: LIDOCAINE HCL/PF 100 MG/5 ML SYRINGE IV ONE (13:13)
[2020-09-07] MEDS ORDERED: DEXAMETHASONE 10 MG/ML VIAL ONE (13:13)
[2020-09-07] MEDS ORDERED: GLYCOPYRROLATE 0.2 MG/ML VIAL IV ONE (13:13)
[2020-09-07] MEDS ORDERED: ePHEDrine 50 MG/ML AMPUL IV ONE (13:13)
[2020-09-07] MEDS ORDERED: KETAMINE 100 MG/ML ML ONE (13:13)
[2020-09-07] MEDS ORDERED: ONDANSETRON 4 MG/2 ML VIAL ONE (13:13)
[2020-09-07] MEDS ORDERED: fentaNYL 100 MCG/2 ML VIAL IV ONE (13:13)
[2020-09-07] MEDS ORDERED: PROPOFOL 200 MG/20 ML VIAL IV ONE (13:13)
[2020-09-07] MEDS ORDERED: ePHEDrine 50 MG/ML AMPUL IV PRN (13:33)
[2020-09-07] MEDS ORDERED: METOPROLOL TARTRATE 5 MG/5 ML VIAL IV PRN (13:33)
[2020-09-07] MEDS ORDERED: PROMETHAZINE 25 MG/ML VIAL IV PRN (13:33)
[2020-09-07] MEDS ORDERED: METHOCARBAMOL 1,000 MG/10 ML VIAL IV PRN (13:33)
[2020-09-07] MEDS ORDERED: NALOXONE HCL 0.4 MG/ML VIAL IV PRN (13:33)
[2020-09-07] MEDS ORDERED: ACETAMINOPHEN 1,000 MG/100 ML BAG IV ONE (13:33)
[2020-09-07] MEDS ORDERED: MEPERIDINE 25 MG/ML SYRINGE IV PRN (13:33)
[2020-09-07] MEDS ORDERED: HYDROmorphone 0.5 MG/0.5 ML SYRINGE IV PRN (13:33)
[2020-09-07] MEDS ORDERED: fentaNYL 100 MCG/2 ML VIAL IV PRN (13:33)
[2020-09-07] MEDS ORDERED: ONDANSETRON 4 MG/2 ML VIAL IV PRN ×3 (13:33→18:45)
[2020-09-07] MEDS ORDERED: diphenhydrAMINE 50 MG/ML VIAL IV PRN (13:33)
[2020-09-07] MEDS ORDERED: ATROPINE SULFATE 0.4 MG/ML VIAL IV PRN (13:33)
[2020-09-07] MEDS ORDERED: FLUMAZENIL 0.1 MG/ML ML IV PRN (13:33)
[2020-09-07] MEDS ORDERED: LACTATED RINGERS 1,000 ML IV SCH (13:45)
--- NOTE | 2020-09-07 14:25 | Discharge Plan ---
Discharge Plan Patient/Caregiver Discharge Instructions Activity: increase activity as tolerated Diet: Regular Diet Activity Restrictions/Additional Instructions: -drink plenty of water -mild blood in the urine is to be expected (emmanuel Koolaid colored or sleeve sewer is ok) -you have SIGNIFICANT scaring from your radiation which we opened up -we would like to leave the catheter in for TWO weeks and then look inside in the office and see how you urinate -once the catheter is removed, we have to monitor you with a look inside the bladder with a camera every so often as that scar tissue can return -take all your antibiotics -take the pyridium for any catheter discomfort (it will turn your urine bright orange) -if any worsening of condition you must come back to the Emergency room -keep the catheter well secured and tension free at all times -if any issues with the catheter, ask to come to the clinic and see the RN Diana to adjust the bag -you can use the larger night bag at night and the dumper central concrete mixing plant tubing and bag to the calf during the day Prescriptions: New fluconazole 150 mg tablet 150 mg PO .daily Qty: 3 RF: 0 levofloxacin 500 mg tablet 500 mg PO Q24H Qty: 7 RF: 0 phenazopyridine [Pyridium] 100 mg tablet 100 mg PO TID PRN (Reason: catheter pain) Qty: 14 RF: 0 No Action aspirin 81 mg tablet,delayed release (DR/EC) 81 mg PO QDAY Qty: 30 RF: 0 simvastatin 40 MG tablet 40 mg PO HS Qty: 30 RF: 0 cholecalciferol (vitamin D3) 50,000 UNIT capsule 50,000 unit PO DAILY RF: 0 ascorbic acid (vitamin C) [Vitamin C] 500 mg capsule, extended release 500 mg PO QDAY RF: 0 spironolactone 25 mg tablet 25 mg PO QDAY RF: 0 Follow Up Plan Patient Disposition: Home, Self-Care Discharge Orders: Discharge Order (Routine); Ordered 09/07/20 Ordered By: Gil Floyd
[2020-09-07] MEDS ORDERED: HYDROcodone/APAP 5/325MG TABLET PO PRN (14:33)
[2020-09-07] MEDS ORDERED: morphine 2 MG/ML VIAL IV PRN (14:33)
[2020-09-07] MEDS ORDERED: PHENAZOPYRIDINE 200 MG TABLET PO ONE (14:33)
[2020-09-07] MEDS ORDERED: OPIUM/BELLADONNA ALKALOIDS 60 MG SUPP.RECT PR PRN (14:33)
--- NOTE | 2020-09-07 14:48 | Brief Operative Note ---
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
[2020-09-07] MEDS ORDERED: MAGNESIUM HYDROXIDE 30 ML ORAL.SUSP PO PRN (18:48)
[2020-09-07] MEDS ORDERED: ONDANSETRON 4 MG ODT TABLET SL PRN (18:48)
[2020-09-07] MEDS ORDERED: oxyCODONE/APAP 5/325MG TABLET PO PRN (18:48)
[2020-09-07] MEDS ORDERED: MAG HYDROX/AL HYDROX/SIMETH 30 ML ORAL.SUSP PO PRN (18:48)
[2020-09-07] MEDS ORDERED: IBUPROFEN 600 MG TABLET PO PRN (18:48)
[2020-09-07] MEDS ORDERED: CALCIUM CARBONATE 500 MG TAB.CHEW CHEWED PRN (18:48)
[2020-09-07] MEDS ORDERED: ACETAMINOPHEN 325 MG TABLET PO PRN (18:48)
[2020-09-07] MEDS ORDERED: LEVOFLOXACIN 500 MG TABLET PO ONE (18:50)
--- NOTE | 2020-09-07 19:15 | XRay Report ---
CLINICAL INFORMATION: Laser Lithotripsy COMPARISON: None. FINDINGS: Digital images are submitted. This shows a catheter overlying the expected location of the urethra with tip overlying the bladder. Radiation seeds in the prostate IMPRESSION: Intraoperative images Interpreted and Authenticated by: Bo Ortega 09/07/20
--- NOTE | 2020-09-07 19:19 | Operative Note ---
Operative Note Operative Note: Date of procedure: 09/07/20 Pre-op diagnosis: post radiation stenotic prostate with occlusive calcification Post-op diagnosis: same (significant urethra stricture, undermined bladder neck) Procedure: direct vision incision urethral stricture with laser, laser lithotripsy urethral stone, complicated catheter placement Grafts/Implants: Yes (20 [place] com[place] tipped catheter ) Anesthesia: GETA Findings: post radiation stenotic prostate with occlusive calcification, significant urethra stricture, undermined bladder neck Surgeon: Gil Floyd Specimens Removed/Pathology: other (urine culture ) Condition: stable Disposition: PACU Informed consent was obtained and preoperative antibiotics and antifungals were given. Patient was taken to the operative suite placed on the table in the supine position. Adequate anesthesia was initiated. We began the procedure with a 19 [place]ine[place] cystoscope sheath and the 30 degree lens which was entered into the urethra. We immediately encountered a dense rigid stricture smaller than the diameter of the 19 [place] scope which a large calcification was seen more proximal to. The laser fiber was employed and the laser was used to create several incisions in the dense stricture to do a direct vision internal urethrotomy of the urethral stricture until the stricture was lysed with the laser enough to allow passage of the 19 [place] scope. The scope was then entered into a cavity of the prostatic fossa where the stone was seen calcified around a free-floating radio active seed. Laser fiber was further employed and we were able to break up the stone and was seen to flush out partially the urethra and into the bladder with small fragments. We did not have the mobility and the dense fibrotic prostatic fossa to remove the loose radioactive seed but such appeared to flush out. There is a significantly undermined bladder neck with a small pinhole opening which we gently cannulated concerned it was the channel to the bladder but resistance was met. By steeply angling the scope we were able to find the true bladder neck and transverse over the undermined bladder neck steeply into the bladder after much difficulty. The bladder neck was surprisingly wide open. It was distal to the bladder neck down to the obliterated external sphincter and stricture that had complete loss of an anatomy. A Glidewire was placed and over such we were able to pass a 20 [place] comanche tip catheter into the bladder. The comanche tip catheter was able to easily pass through our stricture after our direct vision internal urethrotomy with the laser. The balloon was inflated and the catheter was seen to drain freely and connected to a StatLock and a leg bag. The patient tolerated the procedure well and went to recovery room in excellent condition.
[2020-09-07] MEDS ORDERED: FLUCONAZOLE 150 MG TABLET PO ONE (20:00)
[2020-09-07] MEDS ORDERED: SENNOSIDES 1 TABLET PO SCH (21:00)
[2020-09-07] MEDS: FLUCONAZOLE 150 MG TABLET PO SCH (21:11)
[2020-09-07] MEDS: DOCUSATE SODIUM 100 MG CAPSULE PO SCH (21:20)
[2020-09-07] MEDS: 0.9 % SODIUM CHLORIDE 10 ML SYRINGE IV SCH (21:22)
[2020-09-08] MEDS: 0.9 % SODIUM CHLORIDE 10 ML SYRINGE IV SCH ×5 (05:14→13:36)
[2020-09-08] MEDS: DOCUSATE SODIUM 100 MG CAPSULE PO SCH (07:59)
[2020-09-08] MEDS: FLUCONAZOLE 150 MG TABLET PO SCH (08:00)
[2020-09-08] MEDS ORDERED: LEVOFLOXACIN 250 MG TABLET PO SCH (09:00)
--- NOTE | 2020-09-08 13:06 | Internal Med Progress Note ---
SUBJECTIVE Subjective Patient information: Note initiated : 09/08/20 at 1:03 pm Service Date, if different from initiated Date: [] Patient: Philipp Connelly 80 y/o M admitted on 09/07/20 for Cystoscopy, Laser Lithotripsy, complicated catheter placement. Did well overnight on extended recovery. no pain, no fevers, no leakage around the catheter, urine clear yellow. Toelrating diet. Chief Complaint: [] Constitutional Vitals: Vital Signs Temp Pulse Resp BP Pulse Ox 97.8 F 61 20 94/50 91 09/08/20 12:00 09/08/20 12:00 09/08/20 12:00 09/08/20 12:00 09/08/20 12:00 Period Temp Pulse Resp BP Sys/Raines Pulse Ox Last 24 Hr 97.5 F-98.8 F 47-128 09-10 94-145/49-89 90-97 Intake and Output 09/07/20 09/08/20 09/08/20 21:59 05:59 13:59 Intake Total 1989 Output Total 60 500 Balance 1930 400 Weight 177 lb 11.2 oz Intake & Output: Intake & Output 09/07/20 09/08/20 09/08/20 21:59 05:59 13:59 Intake Total 1989 900 Output Total 60 500 Balance 1930 400 Weight 177 lb 11.2 oz Intake: IV 200 Oral 840 900 IV - Manual Only 950 Output: Urine Catheter Amount 60 500 Other: Meal Dinner Percent of Meal Consumed 100% Feeding Ability Independent Urine Appearance Clear Sediment Uretheral ([place]) Clear Urine Color [place] Blood Tinged [place] Blood Tinged Uretheral ([place]) Dark Yellow Urine Odor Normal Normal General appearance: cooperative and no acute distress Respiratory Respiratory exam: Absent rales, respiratory distress, stridor and wheezes Cardiovascular Cardiovascular exam: Present RRR GI/Abdominal GI/Abdominal exam: Present soft; Absent distended, firm, guarding, rebound, rigid and tenderness exam: Present circumcision; Absent scrotal swelling External exam: Absent erythema Additional comments: catheter in good position, draining clear yellow urine. mild mucoid discharge at meatus. Psychiatric Psychiatric exam: Present normal affect; Absent agitated and anxious OBJ DATA Labs CBC & Chem 7: 09/01/20 16:17 09/01/20 16:17 Meds: Medications Acetaminophen (Tylenol) 650 mg PO Q6HP PRN; Protocol PRN Reason: Per Pain Protocol/Fever > 101 Al Hydrox/Mg Hydrox/Simethicone (Maalox) 30 ml PO Q6HP PRN PRN Reason: Dyspepsia Belladonna Alkaloids/Opium (B & O) 60 mg [place] Q4HP PRN PRN Reason: BLADDER SPASMS Last Admin: 09/07/20 14:55 Dose: 60 mg Documented by: Calcium Carbonate/Glycine (Tums) 1,000 mg CHEWED Q4HP PRN PRN Reason: Dyspepsia Docusate Sodium (Colace) 100 mg PO BID [facility] Last Admin: 09/08/20 07:59 Dose: 100 mg Documented by: Fluconazole (Diflucan) 150 mg PO DAILY [facility]; Protocol Last Admin: 09/08/20 08:00 Dose: 150 mg Documented by: Ibuprofen (Motrin) 600 mg PO QIDP PRN; Protocol PRN Reason: Per Pain Protocol/Fever > 101 Levofloxacin (Levaquin) 250 mg PO DAILY [facility] Last Admin: 09/08/20 10:12 Dose: 250 mg Documented by: Magnesium Hydroxide (Milk Of Magnesia) 30 ml PO DAILYP PRN PRN Reason: Constipation Morphine Sulfate (Morphine) 0 mg IV Q1H PRN; Protocol PRN Reason: Per Pain Protocol Ondansetron HCl (Zofran) 4 mg IV Q6HP PRN PRN Reason: Nausea And Vomiting Ondansetron HCl (Zofran Odt) 4 mg SL Q6HP PRN PRN Reason: Nausea And Vomiting Oxycodone/Acetaminophen (Percocet 5-325 Mg) 1 tab PO Q4HP PRN; Protocol PRN Reason: Per Pain Protocol Senna (Senokot) 2 tab PO HS [facility] Last Admin: 09/07/20 21:21 Dose: 2 tab Documented by: Sodium Chloride (Saline Flush) 5 ml IV Q8 [facility] Last Admin: 09/08/20 05:31 Dose: 5 ml Documented by: Sodium Chloride (Saline Flush) 10 ml IV Q8 [facility] Last Admin: 09/08/20 05:16 Dose: Not Given Documented by: A/P Narrative A/P Narrative: POD#1 -doing well -home after leg with forensic toxicologist tubing and night bag teaching -catheter hygiene gone over with patient -follow up catheter removal and cystoscopy in the office Time Spent With Patient Time: Total time spent is greater than 50% in coordination of care (as documented) at patient's floor/unit and/or counseling patient: Total time spent with greater than 50% in coordination of care (as documented) at patient's floor/unit and/or counseling patient:: 15 - 24 minutes QUALITY VTE Deep Vein Thrombosis/Pulmonary Embolism Present on Admission: No
== END 2020-09-08 14:05 | disposition home or self-care (01) | DRG 697 ==
LOC: ICU 09:49
PROVIDERS: ADMIT Urology; ATTEND Urology

== ENCOUNTER 2022-10-07 14:05 | Inpatient (IN) ==
--- NOTE | 2022-10-07 14:26 | Emergency Department Note ---
Weakness HPI General Chief complaint: Weakness Stated complaint: Swallowing issues/ab pain Time Seen by Provider: 10/07/22 14:13 Source: patient and family (Daughter and granddaughter in the room daughter provided some history. This with both his granddaughter and daughter) Mode of arrival: ambulatory Limitations: no limitations History of Present Illness HPI Narrative: Narrative: 82-year-old male brought into the emerge department by his daughter with whom he lives because of weakness. Patient states he has a little bit of shortness of breath and a little bit of difficulty swallowing. States he has not been eating the past 3 or 4 days although has been drinking fluids. His taste is off when he does drink items such as soup. Feels like his throat is dry. Also has a hernia which causes him a little pain when he coughs. He reportedly sleeps much of the day. Patient status post total knee surgery September 11, 2022. Past medical history includes cardiac stent, CHF, prostate cancer, psoriasis. Social history positive tobacco, negative alcohol. Related Data Home Medications Medication Instructions Recorded Confirmed ascorbic acid (vitamin C) 500 mg 500 mg PO QDAY 03/13/16 09/11/22 capsule,extended release (Vitamin C) cholecalciferol (vitamin D3) 1,250 50,000 unit PO DAILY 11/16/18 09/11/22 mcg (50,000 unit) capsule spironolactone 25 mg tablet 25 mg PO QDAY 07/11/20 09/11/22 ferrous sulfate 324 mg (65 mg 324 mg PO QDAY 09/02/22 09/11/22 iron) tablet,delayed release Previous Rx's Medication Instructions Recorded aspirin 81 mg tablet,delayed 81 mg PO QDAY ##30 01/01/18 release simvastatin 40 mg tablet 40 mg PO HS #30 tabs 01/01/18 aspirin 81 mg tablet,delayed 81 mg PO BID #30 tabs 09/11/22 release hydrocodone 5 mg-acetaminophen 325 1 - 2 tab PO Q4H PRN Pain #60 tabs 09/11/22 mg tablet Allergies Allergy/AdvReac Type Severity Reaction Status Date / Time No Known Drug Allergies Allergy Verified 10/07/22 14:14 Review of Systems ROS ROS Narrative: Narrative: Constitutional: Denies fever Eyes: Denies eye discharge ENT ED: Reports throat pain; Denies rhinorrhea Cardiovascular: Denies chest pain Respiratory: Reports shortness of breath (Has COPD? Long-term smoker) Gastrointestinal: Denies abdominal pain, nausea, vomiting or diarrhea Genitourinary: Denies dysuria Musculoskeletal: Denies back pain Integumentary: Denies rash Neurological: Denies headache Psychiatric: Denies anxiety [facility] Narrative Patient History Narrative: Narrative: Medical/Surgical/Family History All Active Problems (Updated 10/07/22 @ 18:05 by Dimitri Vail MD) Chronic kidney disease, stage III (moderate) (Acute) Sepsis (Acute) Acute dehydration (Acute) Urinary (tract) obstruction (Acute) Status post total left knee replacement (Acute) Community acquired pneumonia (Acute) Hyperlipidemia (Chronic) Dermatitis (Chronic) Drug-induced hepatotoxicity (Chronic) COPD (chronic obstructive pulmonary disease) (Chronic) Polycythemia, secondary (Chronic) Urethral stricture (Chronic) Urinary retention (Chronic) Chronic renal disease (Chronic) CAD (coronary artery disease) (Chronic) Psoriasis (Chronic) Hypertension, essential (Chronic) AMI (acute myocardial infarction) (Chronic) Adenocarcinoma of prostate (Chronic) Nocturia (Chronic) Prostate carcinoma (Chronic) Hernia, abdominal (Chronic) Wheezing (Chronic) Rash (Chronic) Dysuria (Chronic) Microscopic hematuria (Chronic) Prostate cancer (Chronic) Slowing, urinary stream (Chronic) Joint swelling (Chronic) Limb pain (Chronic) Joint stiffness (Chronic) History of nicotine dependence (Chronic) History of radiation therapy (Chronic) Dry skin (Chronic) Skin lesion (Chronic) Pneumonia (Acute) UTI (urinary tract infection) (Acute) Bladder outlet obstruction (Acute) Urinary tract infection (Acute) Urethral calculus (Chronic) Leakage from urinary catheter (Acute) Hematuria (Acute) Cystitis (Acute) Dysuria (Acute) Decreased urination (Acute) Acute UTI (Acute) Acute viral syndrome (Acute) Medical History (Updated 10/07/22 @ 18:05 by Dimitri Vail MD) Adenocarcinoma of prostate AMI (acute myocardial infarction) CAD (coronary artery disease) Chronic renal disease Community acquired pneumonia COPD (chronic obstructive pulmonary disease) Dermatitis Drug-induced hepatotoxicity Dry skin Dysuria Hernia, abdominal History of nicotine dependence History of radiation therapy Hyperlipidemia Hypertension, essential Joint stiffness Joint swelling Limb pain Microscopic hematuria Nocturia Polycythemia, secondary Prostate cancer Prostate carcinoma Psoriasis Rash Skin lesion Slowing, urinary stream Urethral stricture Urinary retention Wheezing Surgical History History of cholecystectomy History of colonoscopy History of knee surgery History of surgery Radiation seeds to Prostate for CA Hx of right coronary artery stent placement S/P cystourethroscopy with dilation of urethral stricture Family History Other Cancer Heart attack Prostate cancer Social History Smoking Status: Current every day smoker Alcohol Intake Frequency: does not drink Substance Use: does not use Exam Narrative Narrative: Narrative: General Limitations: no limitations General appearance: Present alert and in no apparent distress Head Head: Present atraumatic and normocephalic Eye Eye: Present normal appearance, PERRL, EOMI, scleral icterus and miosis (constriction) ENT ENT: Present normal exam, normal oropharynx, mucous membranes dry, TM's normal bilaterally and normal external ear exam Neck Neck: Present normal inspection, full ROM and trachea midline; Absent tenderness or meningismus Chest Chest: Absent tenderness Respiratory Respiratory: Present respiratory distress and wheezes (Right posterior expiratory) Cardiovascular Cardiovascular: Present regular rate and normal rhythm Adbominal Abdominal: Present soft; Absent distention, tenderness, guarding or rebound Extremities Extremities: Absent pedal edema Back Back: Present normal inspection; Absent tenderness Neurological Neurological: Present alert and oriented X3 Psychiatric Psychiatric: Present normal affect and normal mood Skin Skin: Present warm (WNL) and dry Course Reevaluation(s) Reevaluation #1: Received 1 L of normal saline. Was able to urinate a small amount after that. States he is feeling better. Urine dip showed large amount of blood no nitrites small amount of leukocytes. Patient states he is frequently has blood in his urine since his prostate cancer. [id number] Chem-8 revealed a BUN of 34 with creatinine 1.4 consistent with dehydration. Patient will be bolused a second liter of normal saline. Chest x-ray was unremarkable. White count was elevated at 17,000 Time: 16:10 Vital Signs Vital signs: Vital Signs Temperature 97.2 F 10/07/22 14:09 Pulse Rate 98 H 10/07/22 14:09 Respiratory Rate 18 10/07/22 14:09 Blood Pressure 104/68 10/07/22 14:09 Pulse Oximetry (%) 94 10/07/22 14:09 Oxygen Delivery Method 10/07/22 14:09 Temperature 97.2 F 10/07/22 14:09 Pulse Rate 70 10/07/22 17:31 Respiratory Rate 18 10/07/22 14:09 Blood Pressure 103/79 10/07/22 17:31 Pulse Oximetry (%) 94 10/07/22 17:31 Oxygen Delivery Method 10/07/22 14:09 [facility] MDM Narrative Medical decision making narrative: Elderly male with weakness and poor p.o. intake. Differential diagnosis includes pneumonia: Chest x-ray obtained and did not show pneumonia Differential diagnosis includes dehydration: The BUN was elevated at 34 and the creatinine was elevated at 1.4 with a BUN/creatinine ratio greater than 20 consistent with dehydration. Patient was bolused a liter of normal saline and had very little urine output so was bolused a second liter of normal saline. He had no urine output after the second liter so was being bolused 1/3 L. Differential diagnosis includes urinary tract infection: Initial dip of the urine showed only small leukocytes and no nitrites. There was blood present but the patient states he usually has blood present due to his prostate cancer. The urine was sent to the laboratory for urinalysis and there and showed greater 182 WBCs per high-powered field consistent with urinary tract infection. Differential diagnosis includes sepsis: The patient initially had tachycardia only and the blood test showed an elevated white count of 17.8 thousand. He now had 2 SIRS criteria though he did not have a source of infection. With the urinalysis coming back positive he now has 2 SIRS criteria and a source of infection put him into sepsis. Lactic acid level was ordered to see if he had severe sepsis. Patient had blood cultures drawn and was administered ceftriaxone 1 g IV. White count was elevated at 17,800. Small left shift with neutrophils of 82%. Hematocrit was 38. Glucose was mildly elevated at 144. BUN elevated at 34. Creatinine elevated at 1.4. Sodium normal at 137 with normal potassium of 4.3 and normal chloride of 107 and a normal bicarb of 24. 1530: With elevated white count of 17,882 neutrophils I considered sepsis but the patient does not have a actual or suspected infection. Urine dip did show small leukocytes only. Patient did have SIRS criteria of elevated white count and a heart rate over 90. 1730: Urinalysis showed greater than 182 WBC per high-powered field showing small leuks and no nitrates on dip. Patient now has a urinary tract infection which gives him a source of infection. The heart rate was 98 on presentation which was tachycardic and his white count was 17.8 giving him 2 SIRS criteria plus infection and thus identifying the patient as sepsis. Upon identifying the patient as sepsis, blood cultures were ordered along with a lactic acid level. I ordered ceftriaxone to be administered 1 g IV after blood cultures I contacted the hospitalist Dr. Vail who agreed to come down to see the patient to evaluate for admission. Patient was bolused 2 L of normal saline to address his dehydration. He will be bolused a third L of normal saline which will exceed t he 30 mL/kg if his lactic acid level should come back elevated. Otherwise he does not show signs of severe sepsis. Patient was tested for COVID and influenza and did not have either. Sepsis Sepsis Identified: Yes Time Zero: after 1600 when UA result came back. Lab Data Result diagrams: 10/07/22 14:40 Labs: Lab Results 10/07/22 10/07/22 10/07/22 Range/Units 14:40 14:40 14:46 WBC 17.8 H (4.5-11.0) K/mcL RBC 4.22 L (4.63-6.08) M/mcL Hgb 12.1 L (13.7-17.5) g/dL Hct 38.1 L (40.1-51.0) % POC Hct 38.0 L (41-55) MCV 90.3 (80.0-100.0) fL MCH 28.7 (26.0-34.0) pg MCHC 31.8 (31.0-36.0) g/dL RDW 13.3 (11.5-14.5) % Plt Count 433 (140-440) K/mcL MPV 9.6 (8.8-12.5) fL Immature Gran % (Auto) 0.6 H (0.0-0.5) % Neut % (Auto) 82.6 H (38.0-78.0) % Lymph % (Auto) 7.6 L (15.5-49.0) % [place] % (Auto) 8.2 (1.0-12.0) % Eos % (Auto) 0.6 (0.0-7.0) % Baso % (Auto) 0.4 (0.0-2.0) % Lymph # (Auto) 1.35 L (1.50-4.80) K/mcL [place] # (Auto) 1.47 H (0.10-0.90) K/mcL Eos # (Auto) 0.11 (0.00-0.70) K/mcL Baso # (Auto) 0.07 (0.00-0.30) K/mcL Immature Gran # 0.11 H (0.00-0.05) K/mcl Absolute Neutrophils 14.71 H (1.80-8.00) K/mcL VBG Lactic Acid (0.5-2.0) mmol/L POC Sodium 137 (133-145) POC Potassium 4.3 (3.3-5.1) POC Chloride 107 (96-108) POC Total CO2 24.0 (22-30) POC BUN 34 H (6-20) POC Creatinine 1.4 H (0.6-1.2) POC Glucose 144 H (70-105) POC WB Ioniz Calcium 1.34 H (1.16-1.32) Total Bilirubin 0.5 (0.1-1.0) mg/dL Direct Bilirubin < 0.2 (0-0.3) mg/dL AST 29 (<40) U/L ALT 39 (<40) U/L Alkaline Phosphatase 169 H (39-117) U/L Total Protein 7.3 (5.9-8.4) gm/dL Albumin 3.0 L (3.2-5.2) gm/dL Globulin 4.3 H (2.2-3.7) gm/dL Urine Color Urine Appearance (Clear) Urine pH (5.0-9.0) Ur Specific [place] (1.000-1.035) Urine Protein (Negative) mg/dL Urine Glucose (UA) (Negative) mg/dL Urine Ketones (Negative) mg/dL Urine Occult Blood (Negative) agusto/mcL Urine Nitrate (Negative) Urine Bilirubin (Negative) mg/dL Urine Urobilinogen mg/dL Ur Leukocyte Esterase (Negative) /uL Urine RBC (0-3) /hpf Urine WBC (0-4) /hpf Ur Squamous Epith Cells (0-4) /hpf Urine Bacteria (0) /hpf Hyaline Casts (0-2) /lph Urine Mucus (None) /hpf Urine Yeast (Budding) (None) /hpf Ur Culture Indicated? 10/07/22 10/07/22 Range/Units 16:00 17:37 WBC (4.5-11.0) K/mcL RBC (4.63-6.08) M/mcL Hgb (13.7-17.5) g/dL Hct (40.1-51.0) % POC Hct (41-55) MCV (80.0-100.0) fL MCH (26.0-34.0) pg MCHC (31.0-36.0) g/dL RDW (11.5-14.5) % Plt Count (140-440) K/mcL MPV (8.8-12.5) fL Immature Gran % (Auto) (0.0-0.5) % Neut % (Auto) (38.0-78.0) % Lymph % (Auto) (15.5-49.0) % [place] % (Auto) (1.0-12.0) % Eos % (Auto) (0.0-7.0) % Baso % (Auto) (0.0-2.0) % Lymph # (Auto) (1.50-4.80) K/mcL [place] # (Auto) (0.10-0.90) K/mcL Eos # (Auto) (0.00-0.70) K/mcL Baso # (Auto) (0.00-0.30) K/mcL Immature Gran # (0.00-0.05) K/mcl Absolute Neutrophils (1.80-8.00) K/mcL VBG Lactic Acid 1.1 (0.5-2.0) mmol/L POC Sodium (133-145) POC Potassium (3.3-5.1) POC Chloride (96-108) POC Total CO2 (22-30) POC BUN (6-20) POC Creatinine (0.6-1.2) POC Glucose (70-105) POC WB Ioniz Calcium (1.16-1.32) Total Bilirubin (0.1-1.0) mg/dL Direct Bilirubin (0-0.3) mg/dL AST (<40) U/L ALT (<40) U/L Alkaline Phosphatase (39-117) U/L Total Protein (5.9-8.4) gm/dL Albumin (3.2-5.2) gm/dL Globulin (2.2-3.7) gm/dL Urine Color Lt. yellow Urine Appearance Clear (Clear) Urine pH 6.0 (5.0-9.0) Ur Specific [place] 1.025 (1.000-1.035) Urine Protein 30 A (Negative) mg/dL Urine Glucose (UA) Negative (Negative) mg/dL Urine Ketones Negative (Negative) mg/dL Urine Occult Blood Large A (Negative) agusto/mcL Urine Nitrate Negative (Negative) Urine Bilirubin Negative (Negative) mg/dL Urine Urobilinogen Normal mg/dL Ur Leukocyte Esterase Moderate A (Negative) /uL Urine RBC 53 H (0-3) /hpf Urine WBC > 182 H (0-4) /hpf Ur Squamous Epith Cells 1 (0-4) /hpf Urine Bacteria None (0) /hpf Hyaline Casts 5 H (0-2) /lph Urine Mucus Many A (None) /hpf Urine Yeast (Budding) Few A (None) /hpf Ur Culture Indicated? yes ED POC Tests ED POC Tests: RODRIGUEZ - Influenza A Negative RODRIGUEZ - Influenza B Negative RODRIGUEZ - SARS Antigen Negative Radiology Data Radiology results reviewed: Yes I reviewed the patient's radiology results. Radiology results narrative: No acute disease. EKG Data EKG #1: EKG attestation: Yes I reviewed and interpreted this EKG. EKG shows normal: sinus rhythm Rate: normal Rhythm: NSR [place]/QRS: left axis deviation Hyperacute T waves: None Ectopy: PVC Interpretation: other (Abnormal EKG) Discharge Plan Patient/Caregiver Discharge Instructions Pt seen by [facility]/PA only: No Clinical Impression: Acute dehydration, Urinary (tract) obstruction Sepsis Qualifiers: Sepsis type: sepsis due to unspecified organism Sepsis acute organ dysfunction status: without acute organ dysfunction Qualified Code(s): A41.9 - Sepsis, unspecified organism Patient Disposition: Xfer As Inpt ([facility]) Condition: Fair Follow up with: Denver Franco ARNP [Primary Care Provider] - Prescriptions: No Action aspirin 81 mg tablet,delayed release (DR/EC) 81 mg PO QDAY Qty: 30 0RF Rx Instructions: STOPPED ON 12/6 FOR SURGERY simvastatin 40 MG tablet 40 mg PO HS Qty: 30 0RF cholecalciferol (vitamin D3) 50,000 UNIT capsule 50,000 unit PO DAILY ferrous sulfate 324 mg (65 mg iron) Tablet,Delayed Release (Dr/Ec) 324 mg PO QDAY hydrocodone-acetaminophen 5-325 mg tablet 1 - 2 tab PO Q4H PRN (Reason: Pain) Qty: 60 0RF aspirin 81 mg tablet,delayed release (DR/EC) 81 mg PO BID Qty: 30 0RF ascorbic acid (vitamin C) [Vitamin C] 500 mg capsule, extended release 500 mg PO QDAY spironolactone 25 mg tablet 25 mg PO QDAY
[2022-10-07] MEDS ORDERED: 0.9 % SODIUM CHLORIDE 1,000 ML IV ONE ×3 (14:35→17:38)
[2022-10-07 14:51] LABS: POC Calcium, Ionized 1.34 (1.16-1.32); POC Creatinine 1.4 (0.6-1.2); POC Potassium 4.3 (3.3-5.1)
--- NOTE | 2022-10-07 15:27 | XRay Report ---
CLINICAL INFORMATION: Dyspnea COMPARISON: 08/30/2022 TECHNIQUE: Portable FINDINGS: The heart size, mediastinum and pulmonary vessels are unremarkable. COPD changes again noted.. There are no effusions. The bones and soft tissues are within normal limits. IMPRESSION: Stable COPD. No acute disease Interpreted and Authenticated by: Bo Ortega 10/07/22
[2022-10-07 15:28] LABS: Basophils # (Auto) 0.07 K/mcL (0.00-0.30); Basophils % (Auto) 0.4 % (0.0-2.0); Eosinophils # (Auto) 0.11 K/mcL (0.00-0.70); Eosinophils % (Auto) 0.6 % (0.0-7.0); Hematocrit 38.1 % (40.1-51.0); Hemoglobin 12.1 g/dL (13.7-17.5); Lymphocytes # (Auto) 1.35 K/mcL (1.50-4.80); Lymphocytes % (Auto) 7.6 % (15.5-49.0); Mean Cell Volume 90.3 fL (80.0-100.0); Mean Corpuscular HGB Conc 31.8 g/dL (31.0-36.0); Mean Platelet Volume 9.6 fL (8.8-12.5); Monocytes # (Auto) 1.47 K/mcL (0.10-0.90); Monocytes % (Auto) 8.2 % (1.0-12.0); Neutrophils % (Auto) 82.6 % (38.0-78.0); Platelet Count 433 K/mcL (140-440); RBC 4.22 M/mcL (4.63-6.08); Red Cell Distribution Width 13.3 % (11.5-14.5); WBC 17.8 K/mcL (4.5-11.0)
[2022-10-07 15:33] LABS: ALT/SGPT 39 U/L (<40); AST/SGOT 29 U/L (<40); Alkaline Phosphatase 169 U/L (39-117); Bilirubin,Direct < 0.2 mg/dL (0-0.3); Bilirubin,Total 0.5 mg/dL (0.1-1.0); Globulin 4.3 gm/dL (2.2-3.7)
[2022-10-07 17:15] LABS: Appearance,Urine CLEAR (Clear); Bilirubin,Urine Negative (Negative); Color,Urine LT. YELLOW; Culture Indicated,Urine yes; Glucose,Urine (UA) NEGATIVE (Negative); Ketones,Urine NEGATIVE (Negative); Leukocyte Esterase,Urine MODERATE /uL (Negative); Mucus,Urine MANY /hpf; Nitrate,Urine NEGATIVE (Negative); Protein,Urine 30 mg/dL (Negative); Specific Gravity,Urine 1.025 (1.000-1.035); Urine Blood LARGE ery/mcL (Negative); Urine Budding Yeast FEW /hpf; Urine Hyaline Cast 5 /lph (0-2); Urine RBC 53 /hpf (0-3); Urine Squamous Epithelial Cell 1 /hpf (0-4); Urine WBC > 182 /hpf (0-4); Urobilinogen,Urine Normal
[2022-10-07] MEDS ORDERED: cefTRIAXone 1 GM VIAL IV ONE (17:21)
--- NOTE | 2022-10-07 18:00 | Internal Med History&Physical ---
HPI History of Present Illness Patient information: Note initiated : 10/07/22 at 5:58 pm Service Date, if different from initiated Date: [] Patient: Philipp Connelly a 82 y/o M admitted on for Swallowing issues/ab pain. Chief Complaint: [weakness] Chief complaint: weakness History of present illness: Mr. Connelly is a 82 year old M COPD, essential hypertensions, dyslipidemia, chronically disease stage III, CAD, osteoarthritis status post left knee replacement, presenting with 1 week history of weakness. He is complain of general body weakness, associated with increased lethargy and decreased appetite. He denies any dysuria or change in urinary frequency or urgency. He denies any back pain. He is complaining of subjective fever and chills. He denies any GI symptoms such as nausea vomiting diarrhea or constipations. There is no exacerbating or elevating factors of any of her symptoms. Vital signs at ED presentation significant for mild tachycardia heart rate in the low 100s beats per minutes. Labs significant for leukocytosis with WBC of 17.8. Urine indicis suggesting the presence of urinary tract infections. COVID screening negative. Chest x-ray stable COPD no sign of pneumonia. Admission request is called for UTI with sepsis. Constitutional Constitutional: Present chills, fever(s) and weakness; Absent excessive sweating or fatigue Additional comments: Decreased appetite EENT Eyes: Absent blurry vision, change in vision, loss of vision or other visual disturbances Ears: Absent decreased hearing or tinnitus Nose, mouth and throat: Absent abnormal hearing, dry mouth, headache(s), nasal congestion or sore throat Cardiovascular Cardiovascular: Absent chest pain, chest pain at rest, edema, irregular heart rhythm or palpatations Respiratory Respiratory: Absent cough, dyspnea or wheezing Gastrointestinal Gastrointestinal: Absent abdominal pain, constipation, diarrhea, nausea or vomiting Musculoskeletal Musculoskeletal: Absent back pain, deformity, limited range of motion, muscle cramps, muscle weakness or numbness Integumentary Integumentary: Absent lesions, rash or wounds Neurological Neurological: Absent focal weakness, headache(s) or numbness Psychiatric Psychiatric: Absent anxiety, depression or hallucinations PFSH PFSH All Active Problems (Updated 10/07/22 @ 18:05 by Dimitri Vail MD) Chronic kidney disease, stage III (moderate) (Acute) Sepsis (Acute) Acute dehydration (Acute) Urinary (tract) obstruction (Acute) Status post total left knee replacement (Acute) Community acquired pneumonia (Acute) Hyperlipidemia (Chronic) Dermatitis (Chronic) Drug-induced hepatotoxicity (Chronic) COPD (chronic obstructive pulmonary disease) (Chronic) Polycythemia, secondary (Chronic) Urethral stricture (Chronic) Urinary retention (Chronic) Chronic renal disease (Chronic) CAD (coronary artery disease) (Chronic) Psoriasis (Chronic) Hypertension, essential (Chronic) AMI (acute myocardial infarction) (Chronic) Adenocarcinoma of prostate (Chronic) Nocturia (Chronic) Prostate carcinoma (Chronic) Hernia, abdominal (Chronic) Wheezing (Chronic) Rash (Chronic) Dysuria (Chronic) Microscopic hematuria (Chronic) Prostate cancer (Chronic) Slowing, urinary stream (Chronic) Joint swelling (Chronic) Limb pain (Chronic) Joint stiffness (Chronic) History of nicotine dependence (Chronic) History of radiation therapy (Chronic) Dry skin (Chronic) Skin lesion (Chronic) Pneumonia (Acute) UTI (urinary tract infection) (Acute) Bladder outlet obstruction (Acute) Urinary tract infection (Acute) Urethral calculus (Chronic) Leakage from urinary catheter (Acute) Hematuria (Acute) Cystitis (Acute) Dysuria (Acute) Decreased urination (Acute) Acute UTI (Acute) Acute viral syndrome (Acute) Medical History (Updated 10/07/22 @ 18:05 by Dimitri Vail MD) Adenocarcinoma of prostate AMI (acute myocardial infarction) CAD (coronary artery disease) Chronic renal disease Community acquired pneumonia COPD (chronic obstructive pulmonary disease) Dermatitis Drug-induced hepatotoxicity Dry skin Dysuria Hernia, abdominal History of nicotine dependence History of radiation therapy Hyperlipidemia Hypertension, essential Joint stiffness Joint swelling Limb pain Microscopic hematuria Nocturia Polycythemia, secondary Prostate cancer Prostate carcinoma Psoriasis Rash Skin lesion Slowing, urinary stream Urethral stricture Urinary retention Wheezing Surgical History History of cholecystectomy History of colonoscopy History of knee surgery History of surgery Radiation seeds to Prostate for CA Hx of right coronary artery stent placement S/P cystourethroscopy with dilation of urethral stricture Family History Other Cancer Heart attack Prostate cancer Social History marital status: single occupational status: employed physical activity: none smoking status: Current every day smoker alcohol intake frequency: does not drink substance use type: does not use MEDS/ALLERGIES Home Medications and Allergies Home Medications Medication Instructions Recorded Confirmed Type ascorbic acid (vitamin C) 500 mg 500 mg PO QDAY 03/13/16 09/11/22 History capsule,extended release (Vitamin C) aspirin 81 mg tablet,delayed 81 mg PO QDAY ##30 01/01/18 09/11/22 Rx release simvastatin 40 mg tablet 40 mg PO HS #30 tabs 01/01/18 09/11/22 Rx cholecalciferol (vitamin D3) 1,250 50,000 unit PO DAILY 11/16/18 09/11/22 Hist ory mcg (50,000 unit) capsule spironolactone 25 mg tablet 25 mg PO QDAY 07/11/20 09/11/22 History ferrous sulfate 324 mg (65 mg 324 mg PO QDAY 09/02/22 09/11/22 History iron) tablet,delayed release aspirin 81 mg tablet,delayed 81 mg PO BID #30 tabs 09/11/22 Rx release hydrocodone 5 mg-acetaminophen 325 1 - 2 tab PO Q4H PRN Pain #60 tabs 09/11/22 Rx mg tablet Allergies Allergy/AdvReac Type Severity Reaction Status Date / Time No Known Drug Allergies Allergy Verified 10/07/22 14:14 EXAM Constitutional Vitals: Temp Pulse Resp BP Pulse Ox O2 Del Method 36.2 C 70 18 103/79 94 10/07/22 14:09 10/07/22 17:31 10/07/22 14:09 10/07/22 17:31 10/07/22 17:31 10/07/22 14:09 General appearance: average body habitus, cooperative and no acute distress Head Head exam: Present atraumatic and normocephalic Eye Eye exam: Present EOMI and PERRL ENT ENT exam: Present mucous membranes moist, normal exam and normal external ear exam Neck Neck exam: Present normal inspection; Absent lymphadenopathy, tenderness or thyromegaly Respiratory Respiratory exam: Absent accessory muscle use, respiratory distress or wheezes Cardiovascular Cardiovascular exam: Present normal rate and rhythm; Absent JVD GI/Abdominal GI/Abdominal exam: Present normal bowel sounds and soft; Absent organomegaly or tenderness Rectal Rectal exam: Present deferred Extremities Exam Extremities exam: Present full ROM and normal capillary refill; Absent normal inspection or tenderness Additional comments: Well healed left knee surgical incision Neurological Exam Neurological exam: Present alert, CN II-XII intact and oriented X3; Absent motor sensory deficit Psychiatric Psychiatric exam: Present normal affect and normal mood; Absent anxious or depressed Skin Skin exam: Present dry and intact DATA Data Completed and Pending Labs: Labs from last 24 hours 10/07/22 10/07/22 10/07/22 17:37 16:00 14:46 WBC RBC Hgb Hct POC Hct 38.0 L MCV MCH MCHC RDW Plt Count MPV Immature Gran % (Auto) Neut % (Auto) Lymph % (Auto) Trigg % (Auto) Eos % (Auto) Baso % (Auto) Lymph # (Auto) Trigg # (Auto) Eos # (Auto) Baso # (Auto) Immature Gran # Absolute Neutrophils VBG Lactic Acid Pending POC Sodium 137 POC Potassium 4.3 POC Chloride 107 POC Total CO2 24.0 POC BUN 34 H POC Creatinine 1.4 H POC Glucose 144 H POC WB Ioniz Calcium 1.34 H Total Bilirubin Direct Bilirubin AST ALT Alkaline Phosphatase Total Protein Albumin Globulin Urine Color Lt. yellow Urine Appearance Clear Urine pH 6.0 Ur Specific Horseheads 1.025 Urine Protein 30 A Urine Glucose (UA) Negative Urine Ketones Negative Urine Occult Blood Large A Urine Nitrate Negative Urine Bilirubin Negative Urine Urobilinogen Normal Ur Leukocyte Esterase Moderate A Urine RBC 53 H Urine WBC > 182 H Ur Squamous Epith Cells 1 Urine Bacteria None Hyaline Casts 5 H Urine Mucus Many A Urine Yeast (Budding) Few A Ur Culture Indicated? yes 10/07/22 10/07/22 14:40 14:40 WBC 17.8 H RBC 4.22 L Hgb 12.1 L Hct 38.1 L POC Hct MCV 90.3 MCH 28.7 MCHC 31.8 RDW 13.3 Plt Count 433 MPV 9.6 Immature Gran % (Auto) 0.6 H Neut % (Auto) 82.6 H Lymph % (Auto) 7.6 L Trigg % (Auto) 8.2 Eos % (Auto) 0.6 Baso % (Auto) 0.4 Lymph # (Auto) 1.35 L Trigg # (Auto) 1.47 H Eos # (Auto) 0.11 Baso # (Auto) 0.07 Immature Gran # 0.11 H Absolute Neutrophils 14.71 H VBG Lactic Acid POC Sodium POC Potassium POC Chloride POC Total CO2 POC BUN POC Creatinine POC Glucose POC WB Ioniz Calcium Total Bilirubin 0.5 Direct Bilirubin < 0.2 AST 29 ALT 39 Alkaline Phosphatase 169 H Total Protein 7.3 Albumin 3.0 L Globulin 4.3 H Urine Color Urine Appearance Urine pH Ur Specific Horseheads Urine Protein Urine Glucose (UA) Urine Ketones Urine Occult Blood Urine Nitrate Urine Bilirubin Urine Urobilinogen Ur Leukocyte Esterase Urine RBC Urine WBC Ur Squamous Epith Cells Urine Bacteria Hyaline Casts Urine Mucus Urine Yeast (Budding) Ur Culture Indicated? A/P Assessment and plan (1) Sepsis: Status: Acute Qualifiers: Sepsis acute organ dysfunction status: without acute organ dysfunction Sepsis type: sepsis due to unspecified organism Qualified Code(s): A41.9 - Sepsis, unspecified organism (2) Status post total left knee replacement: Status: Acute (3) Hyperlipidemia: Status: Chronic (4) COPD (chronic obstructive pulmonary disease): Status: Chronic (5) CAD (coronary artery disease): Status: Chronic (6) Hypertension, essential: Status: Chronic (7) UTI (urinary tract infection): Status: Acute (8) Chronic kidney disease, stage III (moderate): Status: Acute Narrative A/P Narrative: Assessment and Plans: 1. UTI with sepsis: Admit to inpatient med surg Serial lactic acid Procalcitonin level Blood culture Urine culture cbc w/ auto diff in the morning to trend WBC Rocephin s/p IV fluid bolus given in the ED, to be followed by NS@100cc/hr Physical therapy evaluation and treatment 2. h/o COPD, stable: DuoNEB NEB PRN wheezing or shortness of breath 3. Essential hypertension: Currently normotensive Holding Aldactone while giving IV fluid infusion 4. Dyslipidemia: Simvastatin 5. Chronic kidney disease stage III: Avoid nephrotoxic agents s/p IV fluid bolus given in the ED, to be followed by NS@100cc/hr CMP in the morning to trend kidney functions 6. h/o CAD: Aspirin Simvastatin GI ppx: not currently indicated DVT ppx: Heparin Code status: Full Prognosis: guarded Disposition: inpatient med surg; PT Time Spent With Patient Time: Total time spent is greater than 50% in coordination of care (as documented) at patient's floor/unit and/or counseling patient: Initial: Total time with patient: 55 - 74 minutes
[2022-10-07] MEDS ORDERED: cefTRIAXone 1 GM in DEXTROSE 5% IN WATER 50 ML IV SCH (19:08)
[2022-10-07] MEDS ORDERED: traZODone HCL 50 MG TABLET PO PRN (19:08)
[2022-10-07] MEDS ORDERED: ONDANSETRON 4 MG/2 ML VIAL IV PRN (19:08)
[2022-10-07] MEDS ORDERED: IPRATROPIUM/ALBUTEROL 3 ML AMPUL.NEB NEB PRN (19:08)
[2022-10-07] MEDS ORDERED: ACETAMINOPHEN 325 MG TABLET PO PRN ×2 (19:08→19:53)
[2022-10-07] MEDS: 0.9 % SODIUM CHLORIDE 1,000 ML IV SCH (19:22)
[2022-10-07] MEDS: 0.9 % SODIUM CHLORIDE 10 ML SYRINGE IV SCH (20:24)
[2022-10-07] MEDS: HEPARIN 5,000 UNIT/ML VIAL SQ SCH (20:27)
[2022-10-07] MEDS: DOCUSATE SODIUM 100 MG CAPSULE PO SCH (20:27)
[2022-10-07] MEDS: SENNOSIDES 1 TABLET PO SCH (20:27)
[2022-10-07] MEDS ORDERED: HYDROcodone/APAP 5/325MG TABLET PO PRN (22:09)
[2022-10-08] MEDS: 0.9 % SODIUM CHLORIDE 1,000 ML IV SCH ×2 (04:59→15:26)
[2022-10-08] MEDS: 0.9 % SODIUM CHLORIDE 10 ML SYRINGE IV SCH ×3 (06:28→21:16)
[2022-10-08 07:07] LABS: Basophils # (Auto) 0.04 K/mcL (0.00-0.30); Basophils % (Auto) 0.3 % (0.0-2.0); Eosinophils # (Auto) 0.12 K/mcL (0.00-0.70); Eosinophils % (Auto) 0.9 % (0.0-7.0); Hematocrit 32.1 % (40.1-51.0); Hemoglobin 10.2 g/dL (13.7-17.5); Lymphocytes # (Auto) 1.43 K/mcL (1.50-4.80); Lymphocytes % (Auto) 10.7 % (15.5-49.0); Mean Cell Volume 89.4 fL (80.0-100.0); Mean Corpuscular HGB Conc 31.8 g/dL (31.0-36.0); Mean Platelet Volume 9.6 fL (8.8-12.5); Monocytes # (Auto) 0.91 K/mcL (0.10-0.90); Monocytes % (Auto) 6.8 % (1.0-12.0); Neutrophils % (Auto) 80.9 % (38.0-78.0); Platelet Count 358 K/mcL (140-440); RBC 3.59 M/mcL (4.63-6.08); Red Cell Distribution Width 13.2 % (11.5-14.5); WBC 13.4 K/mcL (4.5-11.0)
[2022-10-08 07:23] LABS: ALT/SGPT 26 U/L (<40); AST/SGOT 21 U/L (<40); Albumin 2.4 gm/dL (3.2-5.2); Albumin/Globulin Ratio 0.8 (1.0-2.3); Alkaline Phosphatase 119 U/L (39-117); Bilirubin,Total 0.5 mg/dL (0.1-1.0); Blood Urea Nitrogen 23 mg/dL (8-23); Calcium 8.9 mg/dL (8.6-10.4); Carbon Dioxide 20 mmol/L (22-30); Chloride 108 mmol/L (96-108); Globulin 3.2 gm/dL (2.2-3.7); Glomerular Filtration Rate 79; Glucose 86 mg/dL (70-105)
[2022-10-08] MEDS: HEPARIN 5,000 UNIT/ML VIAL SQ SCH (08:37)
[2022-10-08] MEDS: DOCUSATE SODIUM 100 MG CAPSULE PO SCH ×2 (08:39→20:42)
[2022-10-08] MEDS: cefTRIAXone 1 GM VIAL IV SCH (10:00)
--- NOTE | 2022-10-08 10:58 | Internal Med Progress Note ---
SUBJECTIVE Subjective Patient information: Note initiated : 10/08/22 at 10:53 am Service Date, if different from initiated Date: [] Patient: Philipp Connelly a 82 y/o M admitted on 10/07/22 for Swallowing issues/ab pain. Chief Complaint: [] Interval history: Mr. Connelly is a 82 year old M COPD, essential hypertensions, dyslipidemia, chronically disease stage III, CAD, osteoarthritis status post left knee replacement, presenting with 1 week history of weakness. He is complain of general body weakness, associated with increased lethargy and decreased appetite. He denies any dysuria or change in urinary frequency or urgency. He denies any back pain. He is complaining of subjective fever and chills. He denies any GI symptoms such as nausea vomiting diarrhea or constipations. There is no exacerbating or elevating factors of any of her symptoms. Vital signs at ED presentation significant for mild tachycardia heart rate in the low 100s beats per minutes. Labs significant for leukocytosis with WBC of 17.8. Urine indicis suggesting the presence of urinary tract infections. COVID screening negative. Chest x-ray stable COPD no sign of pneumonia. Admission request is called for UTI with sepsis. 10/08: Low grade fever Tmax 37.5 overnight. WBC 17.8-->13.4. Urine/blood cultures no growth to date. Patient is coming of suprapubic abdominal pain. Patient is coming of diarrhea. Overall body strength improved. Appetite also improved. He denies any fever chills or diaphoresis. He denies any dysuria or change in urinary frequency or urgency. Continue IV fluid and Rocephin for urinary tract infections. Physical therapy e valuation and treatment. Stay in [facility]. Constitutional Vitals: Vital Signs Temp Pulse Resp BP Pulse Ox O2 Del Method 36.7 C 59 L 16 103/58 98 10/08/22 06:47 10/08/22 06:47 10/08/22 06:47 10/08/22 06:47 10/08/22 06:47 10/08/22 06:47 Period Temp Pulse Resp BP Sys/Raines Pulse Ox O2 Del Method O2 Flow Rate Last 24 Hr 36.2 C-37.5 C 59-104 16-22 79-120/58-88 89-98 Room Air-Room Air Intake and Output 10/07/22 10/08/22 10/08/22 19:59 03:59 11:59 Intake Total 2700 200 962 Output Total 202 Balance 2700 -2 962 Weight 70.562 kg 70.562 kg Intake & Output: Intake & Output 10/07/22 10/08/22 10/08/22 19:59 03:59 11:59 Intake Total 2700 200 962 Output Total 202 Balance 2700 -2 962 Weight 70.562 kg 70.562 kg Intake: IV 2700 962 Sodium Chloride 0.9% 1,000 ml @ 2700 962 100 mls/hr IV .Q10H SERGE Rx#: [id number] Oral 200 Output: Void Amount 200 # of times incontinent of urine 2 Other: Meal Breakfast Percent of Meal Consumed 100% Urine Appearance Clear Urine Color Bright Yellow Urine Odor Normal Stool Size Small Large Stool Color Brown Brown Stool Consistency Jannie # Bowel Movements 1 1 Head Head exam: Present atraumatic and normal inspection Eye Eye exam: Present normal appearance ENT ENT exam: Present mucous membranes moist, normal exam and normal external ear exam Neck Neck exam: Present normal inspection Respiratory Respiratory exam: Present normal respiratory exam Cardiovascular Cardiovascular exam: Present normal rate and rhythm GI/Abdominal GI/Abdominal exam: Present normal bowel sounds and tenderness Back Exam Back exam: Present normal inspection Neurological Exam Neurological exam: Present alert and oriented X3 Skin Skin exam: Present intact and warm OBJ DATA Labs CBC & Chem 7: 10/08/22 05:52 10/08/22 05:51 Labs: Abnormal Lab Results 10/08/22 10/08/22 10/07/22 05:52 05:51 16:00 WBC 13.4 H RBC 3.59 L Hgb 10.2 L Hct 32.1 L POC Hct Immature Gran % (Auto) Neut % (Auto) 80.9 H Lymph % (Auto) 10.7 L Lymph # (Auto) 1.43 L Quay # (Auto) 0.91 H Immature Gran # 0.06 H Absolute Neutrophils 10.86 H Carbon Dioxide 20 L POC BUN POC Creatinine POC Glucose POC WB Ioniz Calcium Alkaline Phosphatase 119 H Total Protein 5.6 L Albumin 2.4 L Globulin Albumin/Globulin Ratio 0.8 L Procalcitonin Urine Protein 30 A Urine Occult Blood Large A Ur Leukocyte Esterase Moderate A Urine RBC 53 H Urine WBC > 182 H Hyaline Casts 5 H Urine Mucus Many A Urine Yeast (Budding) Few A 10/07/22 10/07/22 10/07/22 14:50 14:46 14:40 WBC RBC Hgb Hct POC Hct 38.0 L Immature Gran % (Auto) Neut % (Auto) Lymph % (Auto) Lymph # (Auto) Quay # (Auto) Immature Gran # Absolute Neutrophils Carbon Dioxide POC BUN 34 H POC Creatinine 1.4 H POC Glucose 144 H POC WB Ioniz Calcium 1.34 H Alkaline Phosphatase 169 H Total Protein Albumin 3.0 L Globulin 4.3 H Albumin/Globulin Ratio Procalcitonin 0.64 H Urine Protein Urine Occult Blood Ur Leukocyte Esterase Urine RBC Urine WBC Hyaline Casts Urine Mucus Urine Yeast (Budding) 10/07/22 14:40 WBC 17.8 H RBC 4.22 L Hgb 12.1 L Hct 38.1 L POC Hct Immature Gran % (Auto) 0.6 H Neut % (Auto) 82.6 H Lymph % (Auto) 7.6 L Lymph # (Auto) 1.35 L Quay # (Auto) 1.47 H Immature Gran # 0.11 H Absolute Neutrophils 14.71 H Carbon Dioxide POC BUN POC Creatinine POC Glucose POC WB Ioniz Calcium Alkaline Phosphatase Total Protein Albumin Globulin Albumin/Globulin Ratio Procalcitonin Urine Protein Urine Occult Blood Ur Leukocyte Esterase Urine RBC Urine WBC Hyaline Casts Urine Mucus Urine Yeast (Budding) Meds: Medications Acetaminophen (Acetaminophen 325 Mg Tablet) 650 mg PO Q4HP PRN; Protocol PRN Reason: Per Pain Protocol/Fever > 101 Hydrocodone Bitart/Acetaminophen (Hydrocodone/Apap 5/325mg Tablet) 1 tab PO Q4HP PRN PRN Reason: Pain Albuterol/Ipratropium (Ipratropium/Albuterol 3 Ml Ampul.Neb) 3 ml NEB Q4HRT PRN PRN Reason: Wheezing Ascorbic Acid (Ascorbic Acid 500 Mg Tablet) 500 mg PO HS SERGE Aspirin (Aspirin 81 Mg Tab.Chew) 81 mg PO HS SERGE Ceftriaxone Sodium (Ceftriaxone 1 Gm Vial) 1 gm IV Q24H [facility] Last Admin: 10/08/22 10:00 Dose: 1 gm Docusate Sodium (Docusate Sodium 100 Mg Capsule) 100 mg PO BID [facility] Last Admin: 10/08/22 08:39 Dose: Not Given Ergocalciferol (Ergocalciferol (Vitamin D2) 50,000 Unit Capsule) 50,000 unit PO Mo SERGE Heparin Sodium (Porcine) (Heparin 5,000 Unit/Ml Vial) 5,000 unit SQ Q12 [facility] Last Admin: 10/08/22 08:37 Dose: 5,000 unit Sodium Chloride (Sodium Chloride 0.9%) 1,000 mls @ 100 mls/hr IV .Q10H [facility] Last Admin: 10/08/22 04:59 Dose: 100 mls/hr Ondansetron HCl (Ondansetron 4 Mg/2 Ml Vial) 4 mg IV Q6HP PRN PRN Reason: Nausea And Vomiting Senna (Sennosides 1 Tablet) 2 tab PO HS [facility] Last Admin: 10/07/22 20:27 Dose: 2 tab Simvastatin (Simvastatin 40 Mg Tablet) 40 mg PO HS [facility] Sodium Chloride (0.9 % Sodium Chloride 10 Ml Syringe) 10 ml IV Q8 [facility] Last Admin: 10/08/22 06:28 Dose: Not Given Trazodone HCl (Trazodone Hcl 50 Mg Tablet) 25 mg PO HSP PRN PRN Reason: Insomnia A/P Assessment and plan (1) Sepsis: Status: Acute Qualifiers: Sepsis acute organ dysfunction status: without acute organ dysfunction Sepsis type: sepsis due to unspecified organism Qualified Code(s): A41.9 - Sepsis, unspecified organism (2) Status post total left knee replacement: Status: Acute (3) Hyperlipidemia: Status: Chronic (4) COPD (chronic obstructive pulmonary disease): Status: Chronic (5) CAD (coronary artery disease): Status: Chronic (6) Hypertension, essential: Status: Chronic (7) UTI (urinary tract infection): Status: Acute (8) Chronic kidney disease, stage III (moderate): Status: Acute Narrative A/P Narrative: Assessment and Plans: 1. UTI with sepsis: Stays in inpatient med surg Serial lactic acid 1.1 Procalcitonin level 0.64 Blood culture, no growth to date Urine culture, no growth to date cbc w/ auto diff in the morning to trend WBC Rocephin s/p IV fluid bolus given in the ED, to be followed by NS@100cc/hr Physical therapy evaluation and treatment 2. h/o COPD, stable: DuoNEB NEB PRN wheezing or shortness of breath 3. Essential hypertension: Currently normotensive Holding Aldactone while giving IV fluid infusion 4. Dyslipidemia: Simvastatin 5. Chronic kidney disease stage III: Avoid nephrotoxic agents s/p IV fluid bolus given in the ED, to be followed by NS@100cc/hr CMP in the morning to trend kidney functions 6. h/o CAD: Aspirin Simvastatin GI ppx: not currently indicated DVT ppx: Lovenox Code status: Full Prognosis: Stable Disposition: inpatient med surg; PT Time Spent With Patient Time: Total time spent is greater than 50% in coordination of care (as documented) at patient's floor/unit and/or counseling patient: Subsequent: Total time with patient: 35 - 49 minutes QUALITY VTE Deep Vein Thrombosis/Pulmonary Embolism Present on Admission: No
--- NOTE | 2022-10-08 16:09 | EKG ---
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 Measurements Intervals [place] Rate: 79 P: 48 ME: 152 QRS: -68 QRSD: 114 T: 72 QT: 354 QTc: 406 Interpretive Statements Sinus rhythm Ventricular premature complex Left anterior fascicular block Anterior infarct, old No significant change compared to prior ECG. Electronically Signed On 10-08-2022 16:08:50 PST by Bo Perrin M.D. /[facility] [place]/[id number]
[2022-10-08] MEDS: ASCORBIC ACID 500 MG TABLET PO SCH (20:36)
[2022-10-08] MEDS: SIMVASTATIN 40 MG TABLET PO SCH (20:36)
[2022-10-08] MEDS: NYSTATIN 500,000 UNITS/5 ML ORAL.SUSP SSW SCH (20:36)
[2022-10-08] MEDS: ASPIRIN 81 MG TAB.CHEW PO SCH (20:36)
[2022-10-08] MEDS: SENNOSIDES 1 TABLET PO SCH (20:42)
[2022-10-09] MEDS: 0.9 % SODIUM CHLORIDE 1,000 ML IV SCH ×2 (01:29→12:44)
[2022-10-09] MEDS: 0.9 % SODIUM CHLORIDE 10 ML SYRINGE IV SCH ×3 (05:36→21:02)
[2022-10-09 07:40] LABS: Basophils # (Auto) 0.07 K/mcL (0.00-0.30); Basophils % (Auto) 0.5 % (0.0-2.0); Eosinophils # (Auto) 0.23 K/mcL (0.00-0.70); Eosinophils % (Auto) 1.6 % (0.0-7.0); Hematocrit 34.5 % (40.1-51.0); Hemoglobin 10.9 g/dL (13.7-17.5); Lymphocytes # (Auto) 1.89 K/mcL (1.50-4.80); Lymphocytes % (Auto) 13.6 % (15.5-49.0); Mean Cell Volume 90.8 fL (80.0-100.0); Mean Corpuscular HGB Conc 31.6 g/dL (31.0-36.0); Mean Platelet Volume 9.6 fL (8.8-12.5); Monocytes # (Auto) 1.01 K/mcL (0.10-0.90); Monocytes % (Auto) 7.2 % (1.0-12.0); Neutrophils % (Auto) 76.3 % (38.0-78.0); Platelet Count 395 K/mcL (140-440); Red Cell Distribution Width 13.3 % (11.5-14.5); WBC 13.9 K/mcL (4.5-11.0)
[2022-10-09 08:18] LABS: ALT/SGPT 22 U/L (<40); AST/SGOT 19 U/L (<40); Albumin 2.5 gm/dL (3.2-5.2); Albumin/Globulin Ratio 0.8 (1.0-2.3); Alkaline Phosphatase 105 U/L (39-117); Bilirubin,Total 0.3 mg/dL (0.1-1.0); Blood Urea Nitrogen 17 mg/dL (8-23); Calcium 8.8 mg/dL (8.6-10.4); Carbon Dioxide 19 mmol/L (22-30); Chloride 106 mmol/L (96-108); Globulin 3.1 gm/dL (2.2-3.7); Glomerular Filtration Rate 79; Glucose 92 mg/dL (70-105)
[2022-10-09] MEDS: NYSTATIN 500,000 UNITS/5 ML ORAL.SUSP SSW SCH ×2 (09:16→20:58)
[2022-10-09] MEDS: ENOXAPARIN 40 MG/0.4 ML SYRINGE SQ SCH (09:16)
[2022-10-09] MEDS: cefTRIAXone 1 GM VIAL IV SCH (09:17)
[2022-10-09] MEDS: DOCUSATE SODIUM 100 MG CAPSULE PO SCH ×2 (09:17→20:58)
--- NOTE | 2022-10-09 10:33 | Internal Med Progress Note ---
SUBJECTIVE Subjective Patient information: Note initiated : 10/09/22 at 10:31 am Service Date, if different from initiated Date: [] Patient: Philipp Connelly a 82 y/o M admitted on 10/07/22 for Swallowing issues/ab pain. Chief Complaint: [] Interval history: Mr. Connelly is a 82 year old M COPD, essential hypertensions, dyslipidemia, chronically disease stage III, CAD, osteoarthritis status post left knee replacement, presenting with 1 week history of weakness. He is complain of general body weakness, associated with increased lethargy and decreased appetite. He denies any dysuria or change in urinary frequency or urgency. He denies any back pain. He is complaining of subjective fever and chills. He denies any GI symptoms such as nausea vomiting diarrhea or constipations. There is no exacerbating or elevating factors of any of her symptoms. Vital signs at ED presentation significant for mild tachycardia heart rate in the low 100s beats per minutes. Labs significant for leukocytosis with WBC of 17.8. Urine indicis suggesting the presence of urinary tract infections. COVID screening negative. Chest x-ray stable COPD no sign of pneumonia. Admission request is called for UTI with sepsis. 10/08: Low grade fever Tmax 37.5 overnight. WBC 17.8-->13.4. Urine/blood cultures no growth to date. Patient is coming of suprapubic abdominal pain. Patient is coming of diarrhea. Overall body strength improved. Appetite also improved. He denies any fever chills or diaphoresis. He denies any dysuria or change in urinary frequency or urgency. Continue IV fluid and Rocephin for urinary tract infections. Physical therapy e valuation and treatment. Stay in [facility]. 10/09: Afebrile overnight. WBC 13.4-->13.9. Urine/blood cultures no growth to date. Patient denies abdominal pain. Denies nausea/vomiting/diarrhea. He denies any fever chills or diaphoresis. He denies any dysuria or change in urinary frequency or urgency. Continue IV fluid and Rocephin for urinary tract infections. Physical therapy evaluation and treatment. Stay in [facility]. Constitutional Vitals: Vital Signs Temp Pulse Resp BP Pulse Ox O2 Del Method 36.8 C 57 L 18 102/66 95 10/09/22 08:00 10/09/22 08:00 10/09/22 08:00 10/09/22 08:00 10/09/22 08:00 10/09/22 08:00 Period Temp Pulse Resp BP Sys/Raines Pulse Ox O2 Del Method O2 Flow Rate Last 24 Hr 36.8 C-37.1 C 54-65 16-20 92-166/52-66 94-96 Room Air-Room Air Intake and Output 10/08/22 10/09/22 10/09/22 19:59 03:59 11:59 Intake Total 1240 1200 200 Output Total 126 177 201 Balance 1114 1023 -1 Weight 70.488 kg Intake & Output: Intake & Output 10/08/22 10/09/22 10/09/22 19:59 03:59 11:59 Intake Total 1240 1200 200 Output Total 126 177 201 Balance 1114 1023 -1 Weight 70.488 kg Intake: IV 1000 1000 Sodium Chloride 0.9% 1,000 ml @ 1000 1000 100 mls/hr IV .Q10H SERGE Rx#: [id number] Oral 240 200 200 Output: Void Amount 125 175 200 # of times incontinent of urine 1 2 1 Other: Meal Dinner Breakfast Percent of Meal Consumed 100% 50% Feeding Ability Assist with Tray Set Up Urine Appearance Clear Clear Clear Urine Color Yellow Yellow Yellow Stool Size Moderate Small Small Stool Color Brown Brown Brown Stool Consistency Soft Soft Soft # Bowel Movements 1 1 1 Head Head exam: Present atraumatic and normal inspection Eye Eye exam: Present normal appearance ENT ENT exam: Present mucous membranes moist, normal exam and normal external ear exam Neck Neck exam: Present normal inspection Respiratory Respiratory exam: Present normal respiratory exam Cardiovascular Cardiovascular exam: Present normal rate and rhythm GI/Abdominal GI/Abdominal exam: Present normal bowel sounds Back Exam Back exam: Present normal inspection Neurological Exam Neurological exam: Present alert and oriented X3 Skin Skin exam: Present intact and warm OBJ DATA Labs CBC & Chem 7: 10/09/22 05:52 10/09/22 05:52 Labs: Abnormal Lab Results 10/09/22 10/09/22 10/08/22 05:52 05:52 05:52 WBC 13.9 H 13.4 H RBC 3.80 L 3.59 L Hgb 10.9 L 10.2 L Hct 34.5 L 32.1 L POC Hct Immature Gran % (Auto) 0.8 H Neut % (Auto) 80.9 H Lymph % (Auto) 13.6 L 10.7 L Lymph # (Auto) 1.43 L [place] # (Auto) 1.01 H 0.91 H Immature Gran # 0.11 H 0.06 H Absolute Neutrophils 10.63 H 10.86 H Carbon Dioxide 19 L POC BUN POC Creatinine POC Glucose POC WB Ioniz Calcium Alkaline Phosphatase Total Protein 5.6 L Albumin 2.5 L Globulin Albumin/Globulin Ratio 0.8 L Procalcitonin Urine Protein Urine Occult Blood Ur Leukocyte Esterase Urine RBC Urine WBC Hyaline Casts Urine Mucus Urine Yeast (Budding) 10/08/22 10/07/22 10/07/22 05:51 16:00 14:50 WBC RBC Hgb Hct POC Hct Immature Gran % (Auto) Neut % (Auto) Lymph % (Auto) Lymph # (Auto) [place] # (Auto) Immature Gran # Absolute Neutrophils Carbon Dioxide 20 L POC BUN POC Creatinine POC Glucose POC WB Ioniz Calcium Alkaline Phosphatase 119 H Total Protein 5.6 L Albumin 2.4 L Globulin Albumin/Globulin Ratio 0.8 L Procalcitonin 0.64 H Urine Protein 30 A Urine Occult Blood Large A Ur Leukocyte Esterase Moderate A Urine RBC 53 H Urine WBC > 182 H Hyaline Casts 5 H Urine Mucus Many A Urine Yeast (Budding) Few A 10/07/22 10/07/22 10/07/22 14:46 14:40 14:40 WBC 17.8 H RBC 4.22 L Hgb 12.1 L Hct 38.1 L POC Hct 38.0 L Immature Gran % (Auto) 0.6 H Neut % (Auto) 82.6 H Lymph % (Auto) 7.6 L Lymph # (Auto) 1.35 L [place] # (Auto) 1.47 H Immature Gran # 0.11 H Absolute Neutrophils 14.71 H Carbon Dioxide POC BUN 34 H POC Creatinine 1.4 H POC Glucose 144 H POC WB Ioniz Calcium 1.34 H Alkaline Phosphatase 169 H Total Protein Albumin 3.0 L Globulin 4.3 H Albumin/Globulin Ratio Procalcitonin Urine Protein Urine Occult Blood Ur Leukocyte Esterase Urine RBC Urine WBC Hyaline Casts Urine Mucus Urine Yeast (Budding) Meds: Medications Acetaminophen (Acetaminophen 325 Mg Tablet) 650 mg PO Q4HP PRN; Protocol PRN Reason: Per Pain Protocol/Fever > 101 Hydrocodone Bitart/Acetaminophen (Hydrocodone/Apap 5/325mg Tablet) 1 tab PO Q4HP PRN PRN Reason: Pain Albuterol/Ipratropium (Ipratropium/Albuterol 3 Ml Ampul.Neb) 3 ml NEB Q4HRT PRN PRN Reason: Wheezing Ascorbic Acid (Ascorbic Acid 500 Mg Tablet) 500 mg PO [facility] Last Admin: 10/08/22 20:36 Dose: 500 mg Aspirin (Aspirin 81 Mg Tab.Chew) 81 mg PO [facility] Last Admin: 10/08/22 20:36 Dose: 81 mg Ceftriaxone Sodium (Ceftriaxone 1 Gm Vial) 1 gm IV Q24H [facility] Last Admin: 10/09/22 09:17 Dose: 1 gm Docusate Sodium (Docusate Sodium 100 Mg Capsule) 100 mg PO BID [facility] Last Admin: 10/09/22 09:17 Dose: Not Given Enoxaparin Sodium (Enoxaparin 40 Mg/0.4 Ml Syringe) 40 mg SQ DAILY [facility] Last Admin: 10/09/22 09:16 Dose: 40 mg Ergocalciferol (Ergocalciferol (Vitamin D2) 50,000 Unit Capsule) 50,000 unit PO Mo [facility] Sodium Chloride (Sodium Chloride 0.9%) 1,000 mls @ 100 mls/hr IV .Q10H [facility] Last Admin: 10/09/22 01:29 Dose: 100 mls/hr Nystatin (Nystatin 500,000 Units/5 Ml Oral.Susp) 500,000 units SSW BID [facility] Last Admin: 10/09/22 09:16 Dose: 500,000 units Ondansetron HCl (Ondansetron 4 Mg/2 Ml Vial) 4 mg IV Q6HP PRN PRN Reason: Nausea And Vomiting Senna (Sennosides 1 Tablet) 2 tab PO [facility] Last Admin: 10/08/22 20:42 Dose: Not Given Simvastatin (Simvastatin 40 Mg Tablet) 40 mg PO [facility] Last Admin: 10/08/22 20:36 Dose: 40 mg Sodium Chloride (0.9 % Sodium Chloride 10 Ml Syringe) 10 ml IV Q8 [facility] Last Admin: 10/09/22 05:36 Dose: Not Given Trazodone HCl (Trazodone Hcl 50 Mg Tablet) 25 mg PO HSP PRN PRN Reason: Insomnia A/P Assessment and plan (1) Sepsis: Status: Acute Qualifiers: Sepsis acute organ dysfunction status: without acute organ dysfunction Sepsis type: sepsis due to unspecified organism Qualified Code(s): A41.9 - Sepsis, unspecified organism (2) Status post total left knee replacement: Status: Acute (3) Hyperlipidemia: Status: Chronic (4) COPD (chronic obstructive pulmonary disease): Status: Chronic (5) CAD (coronary artery disease): Status: Chronic (6) Hypertension, essential: Status: Chronic (7) UTI (urinary tract infection): Status: Acute (8) Chronic kidney disease, stage III (moderate): Status: Acute Narrative A/P Narrative: Assessment and Plans: 1. UTI with sepsis: Stays in inpatient med surg Serial lactic acid 1.1 Procalcitonin level 0.64 Blood culture, no growth to date Urine culture, no growth to date cbc w/ auto diff in the morning to trend WBC Rocephin s/p IV fluid bolus given in the ED, to be followed by NS@100cc/hr Physical therapy evaluation and treatment 2. h/o COPD, stable: DuoNEB NEB PRN wheezing or shortness of breath 3. Essential hypertension: Currently normotensive Holding Aldactone while giving IV fluid infusion 4. Dyslipidemia: Simvastatin 5. Chronic kidney disease stage III: Avoid nephrotoxic agents s/p IV fluid bolus given in the ED, to be followed by NS@100cc/hr CMP in the morning to trend kidney functions 6. h/o CAD: Aspirin Simvastatin GI ppx: not currently indicated DVT ppx: Lovenox Code status: Full Prognosis: Stable Disposition: inpatient med surg; PT Time Spent With Patient Time: Total time spent is greater than 50% in coordination of care (as documented) at patient's floor/unit and/or counseling patient: Subsequent: Total time with patient: 35 - 49 minutes QUALITY VTE Deep Vein Thrombosis/Pulmonary Embolism Present on Admission: No
--- NOTE | 2022-10-09 13:01 | Internal Med Progress Note ---
SUBJECTIVE Subjective Patient information: Note initiated : 10/09/22 at 12:58 pm Service Date, if different from initiated Date: [] Patient: Philipp Connelly a 82 y/o M admitted on 10/07/22 for Swallowing issues/ab pain. Chief Complaint: [] Interval history: Mr. Connelly is a 82 year old M COPD, essential hypertensions, dyslipidemia, chronically disease stage III, CAD, osteoarthritis status post left knee replacement, presenting with 1 week history of weakness. He is complain of general body weakness, associated with increased lethargy and decreased appetite. He denies any dysuria or change in urinary frequency or urgency. He denies any back pain. He is complaining of subjective fever and chills. He denies any GI symptoms such as nausea vomiting diarrhea or constipations. There is no exacerbating or elevating factors of any of her symptoms. Vital signs at ED presentation significant for mild tachycardia heart rate in the low 100s beats per minutes. Labs significant for leukocytosis with WBC of 17.8. Urine indicis suggesting the presence of urinary tract infections. COVID screening negative. Chest x-ray stable COPD no sign of pneumonia. Admission request is called for UTI with sepsis. 10/08: Low grade fever Tmax 37.5 overnight. WBC 17.8-->13.4. Urine/blood cultures no growth to date. Patient is coming of suprapubic abdominal pain. Patient is coming of diarrhea. Overall body strength improved. Appetite also improved. He denies any fever chills or diaphoresis. He denies any dysuria or change in urinary frequency or urgency. Continue IV fluid and Rocephin for urinary tract infections. Physical therapy e valuation and treatment. Stay in [facility]. 10/09: Afebrile overnight. WBC 13.4-->13.9. Urine/blood cultures no growth to date. Patient denies abdominal pain. Denies nausea/vomiting/diarrhea. He denies any fever chills or diaphoresis. He denies any dysuria or change in urinary frequency or urgency. Continue IV fluid and Rocephin for urinary tract infections. Physical therapy evaluation and treatment. Stay in [facility]. Constitutional Vitals: Vital Signs Temp Pulse Resp BP Pulse Ox O2 Del Method 97.9 F 59 L 22 123/56 95 10/09/22 12:00 10/09/22 12:00 10/09/22 12:00 10/09/22 12:00 10/09/22 12:00 10/09/22 12:00 Period Temp Pulse Resp BP Sys/Raines Pulse Ox O2 Del Method O2 Flow Rate Last 24 Hr 97.9 F-98.7 F 54-65 16-22 92-166/52-66 94-96 Room Air-Room Air Intake and Output 10/09/22 10/09/22 10/09/22 03:59 11:59 19:59 Intake Total 1200 1200 Output Total 177 201 Balance 1023 999 Intake & Output: Intake & Output 10/09/22 10/09/22 10/09/22 03:59 11:59 19:59 Intake Total 1200 1200 Output Total 177 201 Balance 1023 999 Intake: IV 1000 1000 Sodium Chloride 0.9% 1,000 ml @ 1000 1000 100 mls/hr IV .Q10H SERGE Rx#: [id number] Oral 200 200 Output: Void Amount 175 200 # of times incontinent of urine 2 1 Other: Meal Breakfast Percent of Meal Consumed 50% Feeding Ability Assist with Tray Set Up Urine Appearance Clear Clear Urine Color Yellow Yellow Stool Size Small Small Stool Color Brown Brown Stool Consistency Soft Soft # Bowel Movements 1 1 Exam: General: Alert, Awake, No acute Distress Eyes/N/T: EOMI, Head/Neck: neck supple, CV: RRR, No murmurs, Pulm: Clear b/l, no wheezing/rhonchi/rales Abd: soft, nontender, +BS x4 Ext: no clubbing/cyanosis/edema Neuro: Alert, no focal deficits, moves all extremities, Skin: warm/dry OBJ DATA Labs CBC & Chem 7: 10/09/22 05:52 10/09/22 05:52 Labs: Abnormal Lab Results 10/09/22 10/09/22 10/08/22 05:52 05:52 05:52 WBC 13.9 H 13.4 H RBC 3.80 L 3.59 L Hgb 10.9 L 10.2 L Hct 34.5 L 32.1 L POC Hct Immature Gran % (Auto) 0.8 H Neut % (Auto) 80.9 H Lymph % (Auto) 13.6 L 10.7 L Lymph # (Auto) 1.43 L [place] # (Auto) 1.01 H 0.91 H Immature Gran # 0.11 H 0.06 H Absolute Neutrophils 10.63 H 10.86 H Carbon Dioxide 19 L POC BUN POC Creatinine POC Glucose POC WB Ioniz Calcium Alkaline Phosphatase Total Protein 5.6 L Albumin 2.5 L Globulin Albumin/Globulin Ratio 0.8 L Procalcitonin Urine Protein Urine Occult Blood Ur Leukocyte Esterase Urine RBC Urine WBC Hyaline Casts Urine Mucus Urine Yeast (Budding) 10/08/22 10/07/22 10/07/22 05:51 16:00 14:50 WBC RBC Hgb Hct POC Hct Immature Gran % (Auto) Neut % (Auto) Lymph % (Auto) Lymph # (Auto) [place] # (Auto) Immature Gran # Absolute Neutrophils Carbon Dioxide 20 L POC BUN POC Creatinine POC Glucose POC WB Ioniz Calcium Alkaline Phosphatase 119 H Total Protein 5.6 L Albumin 2.4 L Globulin Albumin/Globulin Ratio 0.8 L Procalcitonin 0.64 H Urine Protein 30 A Urine Occult Blood Large A Ur Leukocyte Esterase Moderate A Urine RBC 53 H Urine WBC > 182 H Hyaline Casts 5 H Urine Mucus Many A Urine Yeast (Budding) Few A 10/07/22 10/07/22 10/07/22 14:46 14:40 14:40 WBC 17.8 H RBC 4.22 L Hgb 12.1 L Hct 38.1 L POC Hct 38.0 L Immature Gran % (Auto) 0.6 H Neut % (Auto) 82.6 H Lymph % (Auto) 7.6 L Lymph # (Auto) 1.35 L [place] # (Auto) 1.47 H Immature Gran # 0.11 H Absolute Neutrophils 14.71 H Carbon Dioxide POC BUN 34 H POC Creatinine 1.4 H POC Glucose 144 H POC WB Ioniz Calcium 1.34 H Alkaline Phosphatase 169 H Total Protein Albumin 3.0 L Globulin 4.3 H Albumin/Globulin Ratio Procalcitonin Urine Protein Urine Occult Blood Ur Leukocyte Esterase Urine RBC Urine WBC Hyaline Casts Urine Mucus Urine Yeast (Budding) Meds: Medications Acetaminophen (Acetaminophen 325 Mg Tablet) 650 mg PO Q4HP PRN; Protocol PRN Reason: Per Pain Protocol/Fever > 101 Hydrocodone Bitart/Acetaminophen (Hydrocodone/Apap 5/325mg Tablet) 1 tab PO Q4HP PRN PRN Reason: Pain Albuterol/Ipratropium (Ipratropium/Albuterol 3 Ml Ampul.Neb) 3 ml NEB Q4HRT PRN PRN Reason: Wheezing Ascorbic Acid (Ascorbic Acid 500 Mg Tablet) 500 mg PO [facility] Last Admin: 10/08/22 20:36 Dose: 500 mg Aspirin (Aspirin 81 Mg Tab.Chew) 81 mg PO [facility] Last Admin: 10/08/22 20:36 Dose: 81 mg Ceftriaxone Sodium (Ceftriaxone 1 Gm Vial) 1 gm IV Q24H [facility] Last Admin: 10/09/22 09:17 Dose: 1 gm Docusate Sodium (Docusate Sodium 100 Mg Capsule) 100 mg PO BID [facility] Last Admin: 10/09/22 09:17 Dose: Not Given Enoxaparin Sodium (Enoxaparin 40 Mg/0.4 Ml Syringe) 40 mg SQ DAILY [facility] Last Admin: 10/09/22 09:16 Dose: 40 mg Ergocalciferol (Ergocalciferol (Vitamin D2) 50,000 Unit Capsule) 50,000 unit PO [facility] Sodium Chloride (Sodium Chloride 0.9%) 1,000 mls @ 100 mls/hr IV .Q10H [facility] Last Admin: 10/09/22 12:44 Dose: 100 mls/hr Nystatin (Nystatin 500,000 Units/5 Ml Oral.Susp) 500,000 units SSW BID [facility] Last Admin: 10/09/22 09:16 Dose: 500,000 units Ondansetron HCl (Ondansetron 4 Mg/2 Ml Vial) 4 mg IV Q6HP PRN PRN Reason: Nausea And Vomiting Senna (Sennosides 1 Tablet) 2 tab PO [facility] Last Admin: 10/08/22 20:42 Dose: Not Given Simvastatin (Simvastatin 40 Mg Tablet) 40 mg PO [facility] Last Admin: 10/08/22 20:36 Dose: 40 mg Sodium Chloride (0.9 % Sodium Chloride 10 Ml Syringe) 10 ml IV Q8 [facility] Last Admin: 10/09/22 05:36 Dose: Not Given Trazodone HCl (Trazodone Hcl 50 Mg Tablet) 25 mg PO HSP PRN PRN Reason: Insomnia A/P Narrative A/P Narrative: Assessment and Plans: 1. UTI with sepsis: Stays in inpatient med surg Serial lactic acid 1.1 Procalcitonin level 0.64 Blood culture, no growth to date Urine culture, no growth to date cbc w/ auto diff in the morning to trend WBC Rocephin s/p IV fluid bolus given in the ED, to be followed by NS@100cc/hr Physical therapy evaluation and treatment 2. h/o COPD, stable: DuoNEB NEB PRN wheezing or shortness of breath 3. Essential hypertension: Currently normotensive Holding Aldactone while giving IV fluid infusion 4. Dyslipidemia: Simvastatin 5. Chronic kidney disease stage III: Avoid nephrotoxic agents s/p IV fluid bolus given in the ED, to be followed by NS@100cc/hr CMP in the morning to trend kidney functions 6. h/o CAD: Aspirin Simvastatin GI ppx: not currently indicated DVT ppx: Lovenox Code status: Full Prognosis: Stable Disposition: inpatient med surg; PT Time Spent With Patient Time: Total time spent is greater than 50% in coordination of care (as documented) at patient's floor/unit and/or counseling patient: QUALITY VTE Deep Vein Thrombosis/Pulmonary Embolism Present on Admission: No
--- NOTE | 2022-10-09 13:03 | Discharge Summary ---
Discharge Provider Provider IMPORTANT FOLLOW-UP INFORMATION FOR PCP: Patient information: Note initiated : 10/09/22 at 1:01 pm Service Date, if different from initiated Date: [] Patient: Philipp Connelly a 82 y/o M admitted on 10/07/22 for Swallowing issues/ab pain. Chief Complaint: [] Date of admission: 10/07/22 19:07 Discharge date: 10/10/22 Primary care physician: ALEKSEY Arana Consults: 10/07/22 Consult to Physician [CONS] Stat Comment: Consulting Provider: Dimitri Vail Reason For Exam: Physician to Consult COURSE Hospital Course Hospital course: Mr. Connelly is a 82 year old M COPD, essential hypertensions, dyslipidemia, chronically disease stage III, CAD, osteoarthritis status post left knee replacement, presenting with 1 week history of weakness. He is complain of general body weakness, associated with increased lethargy and decreased appetite. He denies any dysuria or change in urinary frequency or urgency. He denies any back pain. He is complaining of subjective fever and chills. He denies any GI symptoms such as nausea vomiting diarrhea or constipations. There is no exacerbating or elevating factors of any of her symptoms. Vital signs at ED presentation significant for mild tachycardia heart rate in the low 100s beats per minutes. Labs significant for leukocytosis with WBC of 17.8. Urine indicis suggesting the presence of urinary tract infections. COVID screening negative. Chest x-ray stable COPD no sign of pneumonia. Admission request is called for UTI with sepsis. 10/08: Low grade fever Tmax 37.5 overnight. WBC 17.8-->13.4. Urine/blood cultures no growth to date. Patient is coming of suprapubic abdominal pain. Patient is coming of diarrhea. Overall body strength improved. Appetite also improved. He denies any fever chills or diaphoresis. He denies any dysuria or change in urinary frequency or urgency. Continue IV fluid and Rocephin for urinary tract infections. Physical therapy evaluation and treatment. Stay in [facility]. 10/09: Afebrile overnight. WBC 13.4-->13.9. Urine/blood cultures no growth to date. Patient denies abdominal pain. Denies nausea/vomiting/diarrhea. He denies any fever chills or diaphoresis. He denies any dysuria or change in urinary frequency or urgency. Continue IV fluid and Rocephin for urinary tract infections. Physical therapy evaluation and treatment. Stay in [facility]. 10/10 No overnight event or new complaint. Leukocytosis improving. Patient stable for discharge. Assessment and Plans: 1. UTI with sepsis: -abx 2. h/o COPD, stable: 3. Essential hypertension: 4. Dyslipidemia: 5. Chronic kidney disease stage III: 6. h/o CAD: Discharge diagnosis: UTI sepsis Secondary discharge diagnosis: COPD hypertension hyperlipidemia chronic kidney disease CAD Time Spent with Patient Time attestation: Total time spent providing and/or coordinating discharge services: Time spent: Greater than 30 minutes EXAM Constitutional Vitals: Temp Pulse Resp BP Pulse Ox O2 Del Method 97.9 F 59 L 22 123/56 95 10/09/22 12:00 10/09/22 12:00 10/09/22 12:00 10/09/22 12:00 10/09/22 12:00 10/09/22 12:00 Discharge Data Data Completed and Pending Labs on day of discharge: Labs from last 24 hours 10/09/22 10/09/22 05:52 05:52 WBC 13.9 H RBC 3.80 L Hgb 10.9 L Hct 34.5 L MCV 90.8 MCH 28.7 MCHC 31.6 RDW 13.3 Plt Count 395 MPV 9.6 Immature Gran % (Auto) 0.8 H Neut % (Auto) 76.3 Lymph % (Auto) 13.6 L [place] % (Auto) 7.2 Eos % (Auto) 1.6 Baso % (Auto) 0.5 Lymph # (Auto) 1.89 [place] # (Auto) 1.01 H Eos # (Auto) 0.23 Baso # (Auto) 0.07 Immature Gran # 0.11 H Absolute Neutrophils 10.63 H Sodium 135 Potassium 3.5 Chloride 106 Carbon Dioxide 19 L Anion Gap 10.0 BUN 17 Creatinine 0.9 GFR Calculation 79 Glucose 92 Calcium 8.8 Total Bilirubin 0.3 AST 19 ALT 22 Alkaline Phosphatase 105 Total Protein 5.6 L Albumin 2.5 L Globulin 3.1 Albumin/Globulin Ratio 0.8 L Preliminary micro results at discharge 10/07/22 17:37 Blood Culture - Preliminary Blood 10/07/22 17:33 Blood Culture - Preliminary Blood 10/07/22 16:00 Urine Culture - Preliminary Urine - Clean Void Mid-Stream Discharge Plan Patient/Caregiver Discharge Instructions Activity: increase activity as tolerated Diet: Cardiac Prescriptions: New levofloxacin 750 mg tablet 750 mg PO Q24H Qty: 3 0RF Continued aspirin 81 mg tablet,delayed release (DR/EC) 81 mg PO QDAY Qty: 30 0RF Rx Instructions: STOPPED ON 08/27 FOR SURGERY simvastatin 40 MG tablet 40 mg PO HS Qty: 30 0RF cholecalciferol (vitamin D3) 50,000 UNIT capsule 50,000 unit PO HS hydrocodone-acetaminophen 5-325 mg tablet 1 - 2 tab PO Q4H PRN (Reason: Pain) Qty: 60 0RF aspirin 81 mg tablet,delayed release (DR/EC) 81 mg PO HS ascorbic acid (vitamin C) [Vitamin C] 500 mg capsule, extended release 500 mg PO HS spironolactone 25 mg tablet 25 mg PO HS Follow Up Plan Follow up with: Denver Franco ARNP [Primary Care Provider] - Patient Disposition: Home, Self-Care Prognosis: Fair Rehab Potential: Fair Overall status at discharge: patient is progressing back to baseline Discharge Orders: Discharge Order (Routine); Ordered 10/10/22 Ordered By: Alo Nolasco [facility] VTE Deep Vein Thrombosis/Pulmonary Embolism Present on Admission: No
[2022-10-09] MEDS: ASCORBIC ACID 500 MG TABLET PO SCH (20:58)
[2022-10-09] MEDS: ASPIRIN 81 MG TAB.CHEW PO SCH (20:58)
[2022-10-09] MEDS: SIMVASTATIN 40 MG TABLET PO SCH (20:58)
[2022-10-09] MEDS: SENNOSIDES 1 TABLET PO SCH (20:58)
[2022-10-10] MEDS: 0.9 % SODIUM CHLORIDE 10 ML SYRINGE IV SCH (05:01)
[2022-10-10 06:34] LABS: Basophils # (Auto) 0.04 K/mcL (0.00-0.30); Basophils % (Auto) 0.3 % (0.0-2.0); Eosinophils # (Auto) 0.14 K/mcL (0.00-0.70); Eosinophils % (Auto) 1.2 % (0.0-7.0); Hematocrit 31.5 % (40.1-51.0); Hemoglobin 10.2 g/dL (13.7-17.5); Lymphocytes # (Auto) 1.47 K/mcL (1.50-4.80); Lymphocytes % (Auto) 12.6 % (15.5-49.0); Mean Cell Volume 88.2 fL (80.0-100.0); Mean Corpuscular HGB Conc 32.4 g/dL (31.0-36.0); Mean Platelet Volume 9.2 fL (8.8-12.5); Monocytes # (Auto) 0.98 K/mcL (0.10-0.90); Monocytes % (Auto) 8.4 % (1.0-12.0); Neutrophils % (Auto) 76.9 % (38.0-78.0); Platelet Count 346 K/mcL (140-440); RBC 3.57 M/mcL (4.63-6.08); Red Cell Distribution Width 13.2 % (11.5-14.5); WBC 11.7 K/mcL (4.5-11.0)
--- NOTE | 2022-10-10 07:26 | Internal Med Progress Note ---
SUBJECTIVE Subjective Patient information: Note initiated : 10/10/22 at 7:24 am Service Date, if different from initiated Date: [] Patient: Philipp Connelly a 82 y/o M admitted on 10/07/22 for Swallowing issues/ab pain. Chief Complaint: [] Interval history: Mr. Connelly is a 82 year old M COPD, essential hypertensions, dyslipidemia, chronically disease stage III, CAD, osteoarthritis status post left knee replacement, presenting with 1 week history of weakness. He is complain of general body weakness, associated with increased lethargy and decreased appetite. He denies any dysuria or change in urinary frequency or urgency. He denies any back pain. He is complaining of subjective fever and chills. He denies any GI symptoms such as nausea vomiting diarrhea or constipations. There is no exacerbating or elevating factors of any of her symptoms. Vital signs at ED presentation significant for mild tachycardia heart rate in the low 100s beats per minutes. Labs significant for leukocytosis with WBC of 17.8. Urine indicis suggesting the presence of urinary tract infections. COVID screening negative. Chest x-ray stable COPD no sign of pneumonia. Admission request is called for UTI with sepsis. 10/08: Low grade fever Tmax 37.5 overnight. WBC 17.8-->13.4. Urine/blood cultures no growth to date. Patient is coming of suprapubic abdominal pain. Patient is coming of diarrhea. Overall body strength improved. Appetite also improved. He denies any fever chills or diaphoresis. He denies any dysuria or change in urinary frequency or urgency. Continue IV fluid and Rocephin for urinary tract infections. Physical therapy evaluation and treatment. Stay in [facility]. 10/09: Afebrile overnight. WBC 13.4-->13.9. Urine/blood cultures no growth to date. Patient denies abdominal pain. Denies nausea/vomiting/diarrhea. He denies any fever chills or diaphoresis. He denies any dysuria or change in urinary frequency or urgency. Continue IV fluid and Rocephin for urinary tract infections. Physical therapy evaluation and treatment. Stay in [facility]. Constitutional Vitals: Vital Signs Temp Pulse Resp BP Pulse Ox O2 Del Method 98.8 F 58 L 16 113/73 95 10/10/22 03:45 10/10/22 03:45 10/10/22 03:45 10/10/22 03:45 10/10/22 03:45 10/10/22 03:45 Period Temp Pulse Resp BP Sys/Raines Pulse Ox O2 Del Method O2 Flow Rate Last 24 Hr 97.8 F-98.8 F 57-62 16-22 102-123/56-73 95-97 Room Air-Room Air Intake and Output 10/09/22 10/10/22 10/10/22 19:59 03:59 11:59 Intake Total 760 800 Output Total 102 150 200 Balance 658 650 -200 Weight 74.298 kg Intake & Output: Intake & Output 10/09/22 10/10/22 10/10/22 19:59 03:59 11:59 Intake Total 760 800 Output Total 102 150 200 Balance 658 650 -200 Weight 74.298 kg Intake: IV 520 480 Sodium Chloride 0.9% 1,000 ml @ 520 480 100 mls/hr IV .Q10H SERGE Rx#: [id number] Oral 240 320 Output: Void Amount 100 150 200 # of times incontinent of urine 2 Other: Meal Lunch Percent of Meal Consumed 100% Feeding Ability Independent Urine Appearance Clear Clear Clear Urine Color Yellow Yellow Yellow Urine Odor Normal Normal Normal Stool Size Small Stool Color Brown Stool Consistency Soft # Voids 1 1 1 # Bowel Movements 1 # of times incontinent of 1 Bowels Exam: General: Alert, Awake, No acute Distress Eyes/N/T: EOMI, Head/Neck: neck supple, CV: RRR, No murmurs, Pulm: Clear b/l, no wheezing/rhonchi/rales Abd: soft, nontender, +BS x4 Ext: no clubbing/cyanosis/edema Neuro: Alert, no focal deficits, moves all extremities, Skin: warm/dry OBJ DATA Labs CBC & Chem 7: 10/10/22 05:55 10/09/22 05:52 Labs: Abnormal Lab Results 10/10/22 10/10/22 10/09/22 05:55 05:55 05:52 WBC 11.7 H RBC 3.57 L Hgb 10.2 L Hct 31.5 L POC Hct Immature Gran % (Auto) 0.6 H Neut % (Auto) Lymph % (Auto) 12.6 L Lymph # (Auto) 1.47 L Trego # (Auto) 0.98 H Immature Gran # 0.07 H Absolute Neutrophils 8.99 H Carbon Dioxide 19 L POC BUN POC Creatinine POC Glucose POC WB Ioniz Calcium Alkaline Phosphatase Total Protein 5.6 L Albumin 2.5 L Globulin Albumin/Globulin Ratio 0.8 L Procalcitonin 0.20 H Urine Protein Urine Occult Blood Ur Leukocyte Esterase Urine RBC Urine WBC Hyaline Casts Urine Mucus Urine Yeast (Budding) 10/09/22 10/08/22 10/08/22 05:52 05:52 05:51 WBC 13.9 H 13.4 H RBC 3.80 L 3.59 L Hgb 10.9 L 10.2 L Hct 34.5 L 32.1 L POC Hct Immature Gran % (Auto) 0.8 H Neut % (Auto) 80.9 H Lymph % (Auto) 13.6 L 10.7 L Lymph # (Auto) 1.43 L Trego # (Auto) 1.01 H 0.91 H Immature Gran # 0.11 H 0.06 H Absolute Neutrophils 10.63 H 10.86 H Carbon Dioxide 20 L POC BUN POC Creatinine POC Glucose POC WB Ioniz Calcium Alkaline Phosphatase 119 H Total Protein 5.6 L Albumin 2.4 L Globulin Albumin/Globulin Ratio 0.8 L Procalcitonin Urine Protein Urine Occult Blood Ur Leukocyte Esterase Urine RBC Urine WBC Hyaline Casts Urine Mucus Urine Yeast (Budding) 10/07/22 10/07/22 10/07/22 16:00 14:50 14:46 WBC RBC Hgb Hct POC Hct 38.0 L Immature Gran % (Auto) Neut % (Auto) Lymph % (Auto) Lymph # (Auto) Trego # (Auto) Immature Gran # Absolute Neutrophils Carbon Dioxide POC BUN 34 H POC Creatinine 1.4 H POC Glucose 144 H POC WB Ioniz Calcium 1.34 H Alkaline Phosphatase Total Protein Albumin Globulin Albumin/Globulin Ratio Procalcitonin 0.64 H Urine Protein 30 A Urine Occult Blood Large A Ur Leukocyte Esterase Moderate A Urine RBC 53 H Urine WBC > 182 H Hyaline Casts 5 H Urine Mucus Many A Urine Yeast (Budding) Few A 10/07/22 10/07/22 14:40 14:40 WBC 17.8 H RBC 4.22 L Hgb 12.1 L Hct 38.1 L POC Hct Immature Gran % (Auto) 0.6 H Neut % (Auto) 82.6 H Lymph % (Auto) 7.6 L Lymph # (Auto) 1.35 L Trego # (Auto) 1.47 H Immature Gran # 0.11 H Absolute Neutrophils 14.71 H Carbon Dioxide POC BUN POC Creatinine POC Glucose POC WB Ioniz Calcium Alkaline Phosphatase 169 H Total Protein Albumin 3.0 L Globulin 4.3 H Albumin/Globulin Ratio Procalcitonin Urine Protein Urine Occult Blood Ur Leukocyte Esterase Urine RBC Urine WBC Hyaline Casts Urine Mucus Urine Yeast (Budding) Meds: Medications Acetaminophen (Acetaminophen 325 Mg Tablet) 650 mg PO Q4HP PRN; Protocol PRN Reason: Per Pain Protocol/Fever > 101 Hydrocodone Bitart/Acetaminophen (Hydrocodone/Apap 5/325mg Tablet) 1 tab PO Q4HP PRN PRN Reason: Pain Albuterol/Ipratropium (Ipratropium/Albuterol 3 Ml Ampul.Neb) 3 ml NEB Q4HRT PRN PRN Reason: Wheezing Ascorbic Acid (Ascorbic Acid 500 Mg Tablet) [address] [facility] Last Admin: 10/09/22 20:58 Dose: 500 mg Aspirin (Aspirin 81 Mg Tab.Chew) [address] [facility] Last Admin: 10/09/22 20:58 Dose: 81 mg Ceftriaxone Sodium (Ceftriaxone 1 Gm Vial) 1 gm IV Q24H [facility] Last Admin: 10/09/22 09:17 Dose: 1 gm Docusate Sodium (Docusate Sodium 100 Mg Capsule) 100 mg PO BID [facility] Last Admin: 10/09/22 20:58 Dose: 100 mg Enoxaparin Sodium (Enoxaparin 40 Mg/0.4 Ml Syringe) 40 mg SQ DAILY [facility] Last Admin: 10/09/22 09:16 Dose: 40 mg Ergocalciferol (Ergocalciferol (Vitamin D2) 50,000 Unit Capsule) 50,000 unit PO Mo [facility] Nystatin (Nystatin 500,000 Units/5 Ml Oral.Susp) 500,000 units SSW BID [facility] Last Admin: 10/09/22 20:58 Dose: 500,000 units Ondansetron HCl (Ondansetron 4 Mg/2 Ml Vial) 4 mg IV Q6HP PRN PRN Reason: Nausea And Vomiting Senna (Sennosides 1 Tablet) [address] [facility] Last Admin: 10/09/22 20:58 Dose: 2 tab Simvastatin (Simvastatin 40 Mg Tablet) [address] [facility] Last Admin: 10/09/22 20:58 Dose: 40 mg Sodium Chloride (0.9 % Sodium Chloride 10 Ml Syringe) 10 ml IV Q8 [facility] Last Admin: 10/10/22 05:01 Dose: 10 ml Trazodone HCl (Trazodone Hcl 50 Mg Tablet) 25 mg PO HSP PRN PRN Reason: Insomnia A/P Narrative A/P Narrative: Assessment and Plans: 1. UTI with sepsis: Stays in inpatient med surg Serial lactic acid 1.1 Procalcitonin level 0.64 Blood culture, no growth to date Urine culture, no growth to date cbc w/ auto diff in the morning to trend WBC Rocephin Physical therapy evaluation and treatment 2. h/o COPD, stable: DuoNEB NEB PRN wheezing or shortness of breath 3. Essential hypertension: Currently normotensive Holding Aldactone while giving IV fluid infusion 4. Dyslipidemia: Simvastatin 5. Chronic kidney disease stage III: Avoid nephrotoxic agents s/p IV fluid bolus given in the ED, to be followed by NS@100cc/hr CMP in the morning to trend kidney functions 6. h/o CAD: Aspirin Simvastatin GI ppx: not currently indicated DVT ppx: Lovenox Code status: Full Prognosis: Stable Disposition: inpatient med surg; PT Time Spent With Patient Time: Total time spent is greater than 50% in coordination of care (as documented) at patient's floor/unit and/or counseling patient: Subsequent: Total time with patient: 35 - 49 minutes QUALITY VTE Deep Vein Thrombosis/Pulmonary Embolism Present on Admission: No
[2022-10-10] MEDS: NYSTATIN 500,000 UNITS/5 ML ORAL.SUSP SSW SCH (08:44)
[2022-10-10] MEDS: ENOXAPARIN 40 MG/0.4 ML SYRINGE SQ SCH (08:44)
[2022-10-10] MEDS: DOCUSATE SODIUM 100 MG CAPSULE PO SCH (08:44)
[2022-10-10] MEDS: cefTRIAXone 1 GM VIAL IV SCH (09:27)
[2022-10-14] MEDS ORDERED: ERGOCALCIFEROL (VITAMIN D2) 50,000 UNIT CAPSULE PO SCH (09:00)
== END 2022-10-10 13:50 | disposition home or self-care (01) | DRG 872 ==
LOC: ED 14:05 → MEDSUR 19:07
PROVIDERS: ADMIT Internal Medicine; ATTEND Internal Medicine

== ENCOUNTER 2023-03-17 14:57 | Inpatient (IN) ==
--- NOTE | 2023-03-17 15:12 | Emergency Department Note ---
Male Urogenital HPI General Chief complaint: Urogenital-Male Stated complaint: bladder issue Time Seen by Provider: 03/17/23 14:57 Source: patient Mode of arrival: ambulatory Limitations: no limitations History of Present Illness HPI Narrative: Narrative: This is an 82-year-old male who presents to the emergency department from Dr. Dennis's office for preop labs and EKG. He was sent here because preop could not take him. He will be taken to surgery at 1630. He has been taken because of urinary retention. Dr. Dennis was unable to get something a Llanos in at the office. Related Data Home Medications Medication Instructions Recorded Confirmed ascorbic acid (vitamin C) 500 mg 500 mg PO HS 03/13/16 03/17/23 capsule,extended release (Vitamin C) cholecalciferol (vitamin D3) 1,250 50,000 unit PO HS 11/16/18 03/17/23 mcg (50,000 unit) capsule spironolactone 25 mg tablet 25 mg PO HS 07/11/20 03/17/23 fluticasone propionate 50 1 spray intranasal QDAY 03/17/23 03/17/23 mcg/actuation nasal spray,suspension nitrofurantoin 1 cap PO BID 03/17/23 03/17/23 monohydrate/macrocrystals 100 mg capsule Previous Rx's Medication Instructions Recorded aspirin 81 mg tablet,delayed 81 mg PO QDAY ##30 01/01/18 release Allergies Allergy/AdvReac Type Severity Reaction Status Date / Time No Known Drug Allergies Allergy Verified 03/17/23 15:03 Review of Systems ROS ROS Narrative: Narrative: All systems ED: reviewed and negative except as stated. [facility] Narrative Patient History Narrative: Narrative: Medical/Surgical/Family History All Active Problems (Updated 03/17/23 @ 18:20 by Rena Green PA-C) Community acquired pneumonia (Acute) Hyperlipidemia (Chronic) Dermatitis (Chronic) Drug-induced hepatotoxicity (Chronic) COPD (chronic obstructive pulmonary disease) (Chronic) Polycythemia, secondary (Chronic) Urethral stricture (Chronic) Urinary retention (Chronic) Chronic renal disease (Chronic) CAD (coronary artery disease) (Chronic) Psoriasis (Chronic) Hypertension, essential (Chronic) AMI (acute myocardial infarction) (Chronic) Adenocarcinoma of prostate (Chronic) Nocturia (Chronic) Prostate carcinoma (Chronic) Hernia, abdominal (Chronic) Wheezing (Chronic) Rash (Chronic) Dysuria (Chronic) Microscopic hematuria (Chronic) Prostate cancer (Chronic) Slowing, urinary stream (Chronic) Joint swelling (Chronic) Limb pain (Chronic) Joint stiffness (Chronic) History of nicotine dependence (Chronic) History of radiation therapy (Chronic) Dry skin (Chronic) Skin lesion (Chronic) Pneumonia (Acute) UTI (urinary tract infection) (Acute) Bladder outlet obstruction (Chronic) Urinary tract infection (Acute) Urethral calculus (Chronic) Leakage from urinary catheter (Acute) Hematuria (Acute) Cystitis (Acute) Dysuria (Acute) Decreased urination (Acute) Acute UTI (Acute) Acute viral syndrome (Acute) Status post total left knee replacement (Acute) Sepsis (Acute) Acute dehydration (Acute) Urinary (tract) obstruction (Chronic) Chronic kidney disease, stage III (moderate) (Acute) Acute UTI (Acute) Hematuria (Chronic) Acute urinary retention (Acute) UTI (urinary tract infection) (Acute) Acute urinary retention (Acute) Bladder neck contracture (Chronic) Acute on chronic urinary retention (Acute) Medical History (Updated 03/17/23 @ 18:20 by Rena Green PA-C) Adenocarcinoma of prostate AMI (acute myocardial infarction) CAD (coronary artery disease) Chronic renal disease Community acquired pneumonia COPD (chronic obstructive pulmonary disease) Dermatitis Drug-induced hepatotoxicity Dry skin Dysuria Hernia, abdominal History of nicotine dependence History of radiation therapy Hyperlipidemia Hypertension, essential Joint stiffness Joint swelling Limb pain Microscopic hematuria Nocturia Polycythemia, secondary Prostate cancer Prostate carcinoma Psoriasis Rash Skin lesion Slowing, urinary stream Urethral stricture Urinary retention Wheezing Surgical History History of cholecystectomy History of colonoscopy History of knee surgery History of surgery Radiation seeds to Prostate for CA Hx of right coronary artery stent placement S/P cystourethroscopy with dilation of urethral stricture Family History Other Cancer Heart attack Prostate cancer Social History Smoking Status: Current every day smoker Alcohol Intake Frequency: does not drink Substance Use: does not use Exam Narrative Narrative: Narrative: General Limitations: no limitations General appearance: Present alert, in no apparent distress and nontoxic Head Head: Present atraumatic and normocephalic Eye Eye: Present normal appearance; Absent scleral icterus Chest Chest: Present symmetric chest wall rise Respiratory Respiratory: Absent respiratory distress Cardiovascular Cardiovascular: Present regular rate Adbominal Abdominal: Present soft, distention (Mild) and tenderness (Suprapubic); Absent guarding, rebound or rigidity Extremities Extremities: Present normal inspection and full ROM Neurological Neurological: Present alert, oriented X3 and normal gait Psychiatric Psychiatric: Present normal affect, normal mood and pleasant Course Vital Signs Vital signs: Vital Signs Temperature 97.4 F 03/17/23 14:59 Pulse Rate 76 03/17/23 14:59 Respiratory Rate 16 03/17/23 14:59 Blood Pressure 111/73 03/17/23 14:59 Pulse Oximetry (%) 97 03/17/23 14:59 Oxygen Delivery Method Room Air 03/17/23 14:59 Temperature 97.4 F 03/17/23 15:30 Pulse Rate 62 03/17/23 16:35 Respiratory Rate 16 03/17/23 16:35 Blood Pressure 105/67 03/17/23 16:35 Pulse Oximetry (%) 94 03/17/23 16:35 Oxygen Delivery Method Room Air 03/17/23 15:30 MDM MDM Narrative Medical decision making narrative: Narrative: This is an 82-year-old male who presents to the emergency department for preop labs and EKG. Patient was sent over from Dr. Dennis's office. Patient was seen on Friday night diagnosed with UTI and started on Ceftin. He then came in earlier today because of urinary retention. A Llanos placement was tried 3 times but ultimately the patient was discharged to follow-up with Dr. Dennis's office this morning. Patient states Dr. Dennis was unable to even get his camera in to take a look as to what is going on so he sent him over here and is planning on taking him to surgery at 1630. Sepsis Sepsis Identified: No Differential Diagnosis Differential Diagnosis: Urinary retention, UTI, urethral obstruction, urethra perforation Medical Records Medical records reviewed: Yes I reviewed the patient's medical records. Lab Data Lab results reviewed: Yes I reviewed the patient's lab results. 03/17/23 15:27 03/17/23 15:27 Labs: Lab Results 03/17/23 03/17/23 03/17/23 Range/Units 15:27 15:27 15:27 WBC 10.7 (4.5-11.0) K/mcL RBC 3.40 L (4.63-6.08) M/mcL Hgb 9.7 L (13.7-17.5) g/dL Hct 31.2 L (40.1-51.0) % MCV 91.8 (80.0-100.0) fL MCH 28.5 (26.0-34.0) pg MCHC 31.1 (31.0-36.0) g/dL RDW 15.9 H (11.5-14.5) % Plt Count 311 (140-440) K/mcL MPV 8.7 L (8.8-12.5) fL Immature Gran % (Auto) 0.6 H (0.0-0.5) % Neut % (Auto) 73.1 (38.0-78.0) % Lymph % (Auto) 14.5 L (15.5-49.0) % Mathews % (Auto) 8.3 (1.0-12.0) % Eos % (Auto) 2.7 (0.0-7.0) % Baso % (Auto) 0.8 (0.0-2.0) % Lymph # (Auto) 1.54 (1.50-4.80) K/mcL Mathews # (Auto) 0.88 (0.10-0.90) K/mcL Eos # (Auto) 0.29 (0.00-0.70) K/mcL Baso # (Auto) 0.09 (0.00-0.30) K/mcL Immature Gran # 0.06 H (0.00-0.05) K/mcl Absolute Neutrophils 7.79 (1.80-8.00) K/mcL PT 14.4 (11.9-14.5) sec INR 1.1 (0.9-1.1) Sodium 139 (133-145) mmol/L Potassium 4.2 (3.3-5.1) mmol/L Chloride 110 H (96-108) mmol/L Carbon Dioxide 21 L (22-30) mmol/L Anion Gap 8.0 (8.0-16.0) BUN 22 (8-23) mg/dL Creatinine 1.1 (0.7-1.2) mg/dL GFR Calculation 62 Glucose 100 (70-105) mg/dL Calcium 10.0 (8.6-10.4) mg/dL Total Bilirubin 0.4 (0.1-1.0) mg/dL AST 14 (<40) U/L ALT 10 (<40) U/L Alkaline Phosphatase 90 (39-117) U/L Total Protein 6.3 (5.9-8.4) gm/dL Albumin 4.0 (3.2-5.2) gm/dL Globulin 2.3 (2.2-3.7) gm/dL Albumin/Globulin Ratio 1.7 (1.0-2.3) EKG Data EKG #1: EKG attestation: Yes I reviewed and interpreted this EKG. EKG shows normal: sinus rhythm Rate: normal [place]/QRS: left axis deviation and LAHB/LAFB ST segment elevation in: None ST segment depression in: None T wave inversions noted in: aVL, aVR, v1, v2 and v5 QTc: normal When compared to previous EKG there are: no significant changes Interpretation: no acute changes and unchanged compared to prior tracing (date) Pulse Oximetry Data Pulse Ox %: 97 Interpretation: Patient's O2 sat is 97% on room air with no signs of hypoxia. Discharge Plan Patient/Caregiver Discharge Instructions Pt seen by [employer] T[employer] SERVICE TECHNICIAN/PA only: Yes Clinical Impression: Acute on chronic urinary retention Patient Disposition: Xfer As Outpt/Obs ([facility]) Discharge Date/Time: 03/17/23 16:35
[2023-03-17 16:14] LABS: Basophils # (Auto) 0.09 K/mcL (0.00-0.30); Basophils % (Auto) 0.8 % (0.0-2.0); Eosinophils # (Auto) 0.29 K/mcL (0.00-0.70); Eosinophils % (Auto) 2.7 % (0.0-7.0); Hematocrit 31.2 % (40.1-51.0); Hemoglobin 9.7 g/dL (13.7-17.5); Lymphocytes # (Auto) 1.54 K/mcL (1.50-4.80); Lymphocytes % (Auto) 14.5 % (15.5-49.0); Mean Cell Volume 91.8 fL (80.0-100.0); Mean Corpuscular HGB Conc 31.1 g/dL (31.0-36.0); Mean Platelet Volume 8.7 fL (8.8-12.5); Monocytes # (Auto) 0.88 K/mcL (0.10-0.90); Monocytes % (Auto) 8.3 % (1.0-12.0); Neutrophils % (Auto) 73.1 % (38.0-78.0); Platelet Count 311 K/mcL (140-440); Red Cell Distribution Width 15.9 % (11.5-14.5); WBC 10.7 K/mcL (4.5-11.0)
[2023-03-17 16:31] LABS: INR 1.1 (0.9-1.1); Prothrombin Time 14.4 sec (11.9-14.5)
[2023-03-17] MEDS ORDERED: GENTAMICIN SULFATE 200 MG in 0.9 % SODIUM CHLORIDE 250 ML IV SCH (16:45)
[2023-03-17] MEDS ORDERED: ceFAZolin 2 GM in DEXTROSE 5% IN WATER 50 ML IV SCH (16:45)
[2023-03-17 16:48] LABS: ALT/SGPT 10 U/L (<40); AST/SGOT 14 U/L (<40); Albumin/Globulin Ratio 1.7 (1.0-2.3); Alkaline Phosphatase 90 U/L (39-117); Bilirubin,Total 0.4 mg/dL (0.1-1.0); Blood Urea Nitrogen 22 mg/dL (8-23); Carbon Dioxide 21 mmol/L (22-30); Chloride 110 mmol/L (96-108); Globulin 2.3 gm/dL (2.2-3.7); Glomerular Filtration Rate 62; Glucose 100 mg/dL (70-105)
[2023-03-17] MEDS ORDERED: fentaNYL 100 MCG/2 ML VIAL IV ONE (16:53)
[2023-03-17] MEDS ORDERED: ETOMIDATE 20 MG/10 ML VIAL IV ONE (16:53)
[2023-03-17] MEDS ORDERED: ONDANSETRON 4 MG/2 ML VIAL ONE (16:53)
[2023-03-17] MEDS ORDERED: SUGAMMADEX SODIUM 200 MG/2 ML VIAL IV ONE (16:53)
[2023-03-17] MEDS ORDERED: ROCURONIUM 10 MG/ML ML IV ONE (16:53)
[2023-03-17] MEDS ORDERED: PHENYLephrine 1 MG/10 ML SYRINGE (ANEST) ONE (16:53)
[2023-03-17] MEDS ORDERED: fentaNYL 100 MCG/2 ML VIAL IV PRN (17:20)
[2023-03-17] MEDS ORDERED: FLUMAZENIL 0.1 MG/ML ML IV PRN (17:20)
[2023-03-17] MEDS ORDERED: NALOXONE HCL 0.4 MG/ML VIAL IV PRN (17:20)
[2023-03-17] MEDS ORDERED: IPRATROPIUM/ALBUTEROL 3 ML AMPUL.NEB NEB PRN ×2 (17:20→20:57)
[2023-03-17] MEDS ORDERED: ONDANSETRON 4 MG/2 ML VIAL IV PRN ×3 (17:20→20:57)
[2023-03-17] MEDS ORDERED: IOVERSOL 20 ML VIAL IJ ONE (17:23)
[2023-03-17] MEDS ORDERED: LIDOCAINE 2% URO-JET 10 ML JEL.PF.APP UR ONE (17:25)
[2023-03-17] MEDS ORDERED: LACTATED RINGERS 1,000 ML IV SCH (17:30)
[2023-03-17] MEDS ORDERED: MAG HYDROX/AL HYDROX/SIMETH 30 ML ORAL.SUSP PO PRN (18:30)
[2023-03-17] MEDS ORDERED: HYDROcodone/APAP 5/325MG TABLET PO PRN (18:30)
[2023-03-17] MEDS ORDERED: MAGNESIUM HYDROXIDE 30 ML ORAL.SUSP PO PRN (18:30)
[2023-03-17] MEDS ORDERED: DEXTROSE 5%-NS 1,000 ML IV SCH (18:30)
[2023-03-17] MEDS ORDERED: BISACODYL 10 MG SUPP.RECT PR PRN (18:30)
[2023-03-17] MEDS ORDERED: HYDROmorphone 1 MG/ML SYRINGE IV PRN (18:30)
--- NOTE | 2023-03-17 18:30 | Operative Note ---
Brief Operative Note Date of procedure: 03/17/23 Pre-op diagnosis: Bladder neck contracture, urinary tract infection and gross hematuria Post-op diagnosis: other (Bladder neck contracture, urethral stones, urinary tract infection and gross hematuria.) Procedure: Ureteroscopy, laser lithotripsy of urethral/bladder neck stones, placement of a suprapubic catheter with cystogram, and fulguration of bleeding. Grafts/Implants: Yes (22 [place] suprapubic [place] tip catheter) Anesthesia: GETA Findings: Inability to identify the bladder neck due to contracture and stone. Placement of 22 [place] suprapubic [place] tip catheter over a wire. Fulguration of bleeding. Complications: none Surgeon: Sergey Dennis Estimated blood loss (cc): 30 Specimens Removed/Pathology: none sent Condition: stable Disposition: PACU Operative Note Operative Note: Preoperatively the patient denied being on any blood thinners other than a baby aspirin. After obtaining informed consent from the patient, he was taken to the operating was placed upon on the operating table. General endotracheal anesthesia was provided and he was repositioned in a dorsolithotomy position was prepped and draped in usual sterile fashion up to the umbilicus. Attention was directed to the urethral meatus where a 19 [place] cystoscope was passed per urethra to the bladder neck. Multiple attempts were made to identify the opening to the bladder but these were unsuccessful. C-arm was brought in and under fluoroscopy I injected contrast which did enter the bladder however I could not find the true passage into the bladder. The bladder was noted to be severely distended. At the bladder neck were numerous stones and using 365 m laser fiber at fragmentation settings the was were broken into smaller pieces. With these broken I could still not find the true entry to the bladder. My wire went into false passages both anteriorly and posteriorly. Predominantly to the left side. Eventually decision was made to place a suprapubic catheter. Using a spinal needle as a finder needle identified the bladder and obtained urine from the bladder which was a clear red. I then used an 11 blade to make a 1 cm incision 2 cm above the pubic symphysis in the area where the finder needle had been. Used the punch suprapubic catheter [place] with peel-away sheath I passed this into the bladder and obtained red urine. A 16 [place] catheter was passed through the sheath and the balloon was inflated with 10 mL of sterile water. The sheath was peeled away. A cystogram was performed through the catheter confirming placement. The catheter irrigated however the for the urine was quite red. Immediately noted was diffuse bleeding from the tissue surrounding the suprapubic placement. Multiple attempts were made at cautery using a Bovie electrode followed by using Cora powder and Surgifoam. The bleeding continued. I opened the incision slightly to see if I can find the bleeding point. It was just diffuse ooze that appeared to be coming up from the actual bladder. I placed Surgifoam deep into the tissue and then sutured the tissue closed over the surgeon phone which provided some hemostasis. The bleeding continued and the 16 [place] catheter appeared to become difficult to irrigate. For this reason I passed a 0.38 [place] extra-stiff wire through the suprapubic catheter and under fluoroscopic guidance into the bladder. The catheter balloon was deflated and the catheter was removed. A 22 [place] tip catheter was passed over this wire and under fluoroscopic guidance into the bladder. The balloon was inflated with 15 mL of sterile water and on fluoroscopy appeared to be in good position. A cystogram was again performed through the catheter and the catheter was in proper position within the bladder. I then used more Cora powder and surgical foam. I then sewed the catheter in place. I then took a long Ray-Riki moistened with water and tied it around the catheter tightly. I then pulled the catheter out providing pressure on both the underlying bladder and on the wound. This provided good hemostasis. I then affixed the catheter to the skin using a 2-0 nylon suture. A drain sponge was placed on this. The catheter was then affixed to the leg using a StatLock. The catheter was again hand irrigated and this time ran clear with red urine. The catheter was placed to gravity drainage. The patient was then awakened and returned to recovery in stable condition. It appears that the patient is likely on a blood thinner. Most likely Plavix due to his recent cardiac stent placement.
[2023-03-17] MEDS ORDERED: GELATIN SPONGE,ABSORBABLE 1 EACH SPONGE TOPICAL ONE (18:51)
[2023-03-17] MEDS ORDERED: NITROGLYCERIN 0.4 MG TAB.SUBL SL ONE ×2 (19:28→19:33)
--- NOTE | 2023-03-17 20:03 | Urology Progress Note ---
SUBJECTIVE Subjective Patient information: Note initiated : 03/17/23 at 7:56 pm Service Date, if different from initiated Date: [] Patient: Philipp Connelly 82 y/o M admitted on . Chief Complaint: [Chest pain] Principal diagnosis: Postoperative chest pain Interval history: Postoperatively the patient began to complain of chest pain that he reports was similar to the chest pain he had prior to cardiac stent placement. The chest pain was relieved with nitroglycerin. A troponin was obtained which was within normal limits at less than 0.02. An EKG was obtained. This was at baseline. Anesthesia is assisting management. The hospitalist has been consulted. Constitutional Vitals: Vital Signs Temp Pulse Resp BP Pulse Ox O2 Del Method O2 Flow Rate 97.4 F 65 19 73/58 91 Room Air 2 03/17/23 15:30 03/17/23 18:47 03/17/23 18:47 03/17/23 18:41 03/17/23 18:47 03/17/23 15:30 03/17/23 18:38 Period Temp Pulse Resp BP Sys/Raines Pulse Ox O2 Del Method O2 Flow Rate Last 24 Hr 97.4 F-97.4 F 62-76 16-25 73-111/58-73 91-98 Room Air-Room Air 2 Intake and Output 03/17/23 03/17/23 03/17/23 03:59 11:59 19:59 Intake Total 305 Balance 305 Weight 68.039 kg Patient Weight 03/18/23 03:59 Weight 68.039 kg Intake & Output: Intake & Output 03/17/23 03/17/23 03/17/23 03:59 11:59 19:59 Intake Total 305 Balance 305 Weight 68.039 kg Intake: IV 305 Gentamicin Sulfate 200 mg In 255 Sodium Chloride 0.9% 250 ml @ 250 mls/hr IV ONCE SERGE Rx#: [id number] Ancef 2 gm In Dextrose 5% in 50 Water 50 ml @ 100 mls/hr IV PREOP SERGE Rx#:[id number] Other: Urine Appearance Suprapubic Hematuria Urine Color Suprapubic Light Red General appearance: average body habitus, cooperative and no acute distress Respiratory Respiratory exam: Present normal respiratory exam Cardiovascular Cardiovascular exam: Present normal rate and rhythm GI/Abdominal Additional comments: The suprapubic wound appears to be intact. The dressing is not anymore soaked with blood and it was the time of completion of the surgery. Expanded Exam Urine Color: Medium Red A/P Assessment and plan (1) Acute on chronic urinary retention: Status: Acute (2) Bladder neck contracture: Status: Chronic (3) Gross hematuria: Status: Acute (4) Dysuria: Status: Acute (5) Urethral calculus: Status: Chronic (6) History of radiation therapy: Status: Chronic (7) Chest pain: Status: Acute (8) CAD (coronary artery disease): Status: Chronic Plan Shmuel is an 82-year-old male status postplacement of a suprapubic catheter for a bladder neck contracture with gross hematuria and inability to find the bladder neck retrograde. A suprapubic catheter was placed. He had significant bleeding, approximately 30 cc from the suprapubic site which was difficult to control as he is likely on Plavix. The bleeding was eventually controlled with pressure. I would like to maintain the pressure with the current dressing until tomorrow morning. If the patient is on Plavix he should remain on Plavix but I do not feel he should be on additional anticoagulations until the hematuria and the suprapubic wound bleeding resolves for 24 hours. The patient's first postop read of troponin was within normal limits. EKG is at baseline. Further cardiac management per the hospitalist service. I will follow closely. Time Spent With Patient Time: Total time spent is greater than 50% in coordination of care (as documented) at patient's floor/unit and/or counseling patient:
--- NOTE | 2023-03-17 20:11 | Internal Med History&Physical ---
HPI History of Present Illness Patient information: Note initiated : 03/17/23 at 7:56 pm Service Date, if different from initiated Date: [] Patient: Philipp Connelly 82 y/o M admitted on . Chief Complaint: [] History of present illness: Mr. Connelly is a 82 year old with a history not limited to coronary artery disease status post prior stent with the most recent AMRITA stent being placed in a restenosed LAD stent in January 2023 for the indication of unstable angina, prostate cancer status post brachytherapy complicated by radiation cystitis, chart review indicates that he also has a history of urethral stricture, bladder neck contracture, ureteral stones and tobacco use disorder. The patient has recently had a difficulty urinating, he presented to the emergency department a couple times in the last few days including earlier on the day of admission. Nursing staff attempted to place a Llanos catheter but that was unsuccessful. Urology was consulted and the patient was taken to the OR for ureteroscopy, laser lithotripsy of urethral and bladder neck stones, placement of a suprapubic catheter with cystogram and fulguration of bleeding. After the procedure in the PACU, the patient developed severe substernal chest pain for which hospital medicine was consulted. A stat EKG did not show any dynamic changes concerning for acute cardiac ischemia. Initial troponin level was normal at 0.02. The patient was given nitroglycerin 4 mg sublingual with improvement in his chest pain. The patient will be admitted for further monitoring and work-up. Review of systems Constitutional: no fever, fatigue, or weight loss Eyes: no vision changes or pain Cardiovascular: Positive for chest pain Respiratory: no cough or dyspnea Gastrointestinal: no abdominal pain, no nausea, vomiting, or diarrhea Genitourinary: Positive for difficulty urinating Musculoskeletal: no arthralgia or myalgia Physical exam Head: Atraumatic, normal inspection. Eyes: normal appearance, no scleral icterus. Neck: full ROM Respiratory: Nasal cannula oxygen supplementation, does not appear to be in respiratory distress. Cardiovascular: normal rate and rhythm, S1, S2, chest pain is not reproducible with palpation. GI/Abdominal: soft, nontender, no guarding. : Suprapubic Llanos catheter draining bloody urine. Extremities: full range of motion, nontender. Neurological: CN II-XII intact, intact motor, intact sensation. Psychiatric: Appears anxious Skin: warm, normal color PFSH PFSH All Active Problems (Updated 03/17/23 @ 20:02 by Sergey Dennis MD) Community acquired pneumonia (Acute) Hyperlipidemia (Chronic) Dermatitis (Chronic) Drug-induced hepatotoxicity (Chronic) COPD (chronic obstructive pulmonary disease) (Chronic) Polycythemia, secondary (Chronic) Urethral stricture (Chronic) Urinary retention (Chronic) Chronic renal disease (Chronic) CAD (coronary artery disease) (Chronic) Psoriasis (Chronic) Hypertension, essential (Chronic) AMI (acute myocardial infarction) (Chronic) Adenocarcinoma of prostate (Chronic) Nocturia (Chronic) Prostate carcinoma (Chronic) Hernia, abdominal (Chronic) Wheezing (Chronic) Rash (Chronic) Dysuria (Chronic) Microscopic hematuria (Chronic) Prostate cancer (Chronic) Slowing, urinary stream (Chronic) Joint swelling (Chronic) Limb pain (Chronic) Joint stiffness (Chronic) History of nicotine dependence (Chronic) History of radiation therapy (Chronic) Dry skin (Chronic) Skin lesion (Chronic) Pneumonia (Acute) UTI (urinary tract infection) (Acute) Bladder outlet obstruction (Chronic) Urinary tract infection (Acute) Urethral calculus (Chronic) Leakage from urinary catheter (Acute) Hematuria (Acute) Cystitis (Acute) Dysuria (Acute) Decreased urination (Acute) Acute UTI (Acute) Acute viral syndrome (Acute) Status post total left knee replacement (Acute) Sepsis (Acute) Acute dehydration (Acute) Urinary (tract) obstruction (Chronic) Chronic kidney disease, stage III (moderate) (Acute) Acute UTI (Acute) Hematuria (Chronic) Acute urinary retention (Acute) UTI (urinary tract infection) (Acute) Acute urinary retention (Acute) Bladder neck contracture (Chronic) Acute on chronic urinary retention (Acute) Gross hematuria (Acute) Chest pain (Acute) Medical History (Updated 03/17/23 @ 20:02 by Sergey Dennis MD) Adenocarcinoma of prostate AMI (acute myocardial infarction) CAD (coronary artery disease) Chronic renal disease Community acquired pneumonia COPD (chronic obstructive pulmonary disease) Dermatitis Drug-induced hepatotoxicity Dry skin Dysuria Hernia, abdominal History of nicotine dependence History of radiation therapy Hyperlipidemia Hypertension, essential Joint stiffness Joint swelling Limb pain Microscopic hematuria Nocturia Polycythemia, secondary Prostate cancer Prostate carcinoma Psoriasis Rash Skin lesion Slowing, urinary stream Urethral stricture Urinary retention Wheezing Surgical History History of cholecystectomy History of colonoscopy History of knee surgery History of surgery Radiation seeds to Prostate for CA Hx of right coronary artery stent placement S/P cystourethroscopy with dilation of urethral stricture Family History Other Cancer Heart attack Prostate cancer Social History marital status: single occupational status: employed physical activity: none smoking status: Current every day smoker alcohol intake frequency: does not drink substance use type: does not use MEDS/ALLERGIES Home Medications and Allergies Home Medications Medication Instructions Recorded Confirmed Type ascorbic acid (vitamin C) 500 mg 500 mg PO HS 03/13/16 03/17/23 History capsule,extended release (Vitamin C) aspirin 81 mg tablet,delayed 81 mg PO QDAY ##30 01/01/18 03/17/23 Rx release cholecalciferol (vitamin D3) 1,250 50,000 unit PO HS 11/16/18 03/17/23 History mcg (50,000 unit) capsule spironolactone 25 mg tablet 25 mg PO HS 07/11/20 03/17/23 History fluticasone propionate 50 1 spray intranasal QDAY 03/17/23 03/17/23 History mcg/actuation nasal spray,suspension nitrofurantoin 1 cap PO BID 03/17/23 03/17/23 History monohydrate/macrocrystals 100 mg capsule Allergies Allergy/AdvReac Type Severity Reaction Status Date / Time No Known Drug Allergies Allergy Verified 03/17/23 15:03 EXAM Constitutional Vitals: Temp Pulse Resp BP Pulse Ox O2 Del Method O2 Flow Rate 97.4 F 65 19 73/58 91 Room Air 2 03/17/23 15:30 03/17/23 18:47 03/17/23 18:47 03/17/23 18:41 03/17/23 18:47 03/17/23 15:30 03/17/23 18:38 DATA Data Completed and Pending Labs: Labs from last 24 hours 03/17/23 03/17/23 03/17/23 19:28 15:27 15:27 WBC RBC Hgb Hct MCV MCH MCHC RDW Plt Count MPV Immature Gran % (Auto) Neut % (Auto) Lymph % (Auto) Stanton % (Auto) Eos % (Auto) Baso % (Auto) Lymph # (Auto) Stanton # (Auto) Eos # (Auto) Baso # (Auto) Immature Gran # Absolute Neutrophils PT 14.4 INR 1.1 Sodium 139 Potassium 4.2 Chloride 110 H Carbon Dioxide 21 L Anion Gap 8.0 BUN 22 Creatinine 1.1 GFR Calculation 62 Glucose 100 Calcium 10.0 Total Bilirubin 0.4 AST 14 ALT 10 Alkaline Phosphatase 90 Total Protein 6.3 Albumin 4.0 Globulin 2.3 Albumin/Globulin Ratio 1.7 POC Troponin I < 0.02 03/17/23 15:27 WBC 10.7 RBC 3.40 L Hgb 9.7 L Hct 31.2 L MCV 91.8 MCH 28.5 MCHC 31.1 RDW 15.9 H Plt Count 311 MPV 8.7 L Immature Gran % (Auto) 0.6 H Neut % (Auto) 73.1 Lymph % (Auto) 14.5 L Stanton % (Auto) 8.3 Eos % (Auto) 2.7 Baso % (Auto) 0.8 Lymph # (Auto) 1.54 Stanton # (Auto) 0.88 Eos # (Auto) 0.29 Baso # (Auto) 0.09 Immature Gran # 0.06 H Absolute Neutrophils 7.79 PT INR Sodium Potassium Chloride Carbon Dioxide Anion Gap BUN Creatinine GFR Calculation Glucose Calcium Total Bilirubin AST ALT Alkaline Phosphatase Total Protein Albumin Globulin Albumin/Globulin Ratio POC Troponin I A/P Narrative A/P Narrative: Assessment :82 year old with a history of coronary artery disease status post prior stents with the most recent AMRITA stent being placed in a restenosed LAD stent in January 2023 for the indication of unstable angina, reported heart failure with reduced ejection fraction, prostate cancer status post brachytherapy, tobacco use disorder who developed substernal chest pain in PACU after undergoing and urgent urologic procedure requiring placement of a suprapubic catheter, ureteroscopy, laser lithotripsy of urethral/bladder neck stones and fulguration of bleeding. The patient was reported to have significant bleeding during the procedure. EKG did not show acute ischemic changes, initial troponin was normal. #Chest pain #History of CAD status post AMRITA January 2023 #Acute on chronic anemia likely secondary to cause of hematuria #Status post suprapubic catheter, ureteroscopy, laser lithotripsy, fulguration of bleeding #Reported heart failure with reduced ejection fraction #Prostate cancer status post prior brachytherapy complicated by radiation cystitis #Tobacco use disorder Plan: -Continue aspirin 81 mg daily, home atorvastatin. -Optimally would resume Plavix soon given recent AMRITA. -Trend troponin x3. -Monitor hemoglobin, goal hemoglobin of greater than 8. -IV fluid for now, monitor volume status. -CTA chest to evaluate for acute aortic syndrome. -Transthoracic echocardiogram. -Nitroglycerin SL as needed. -Nicotine replacement as needed. -panel monitor. -Urology following. -Home medication reconciliation, resume important meds. -CODE STATUS: Full. Time Spent With Patient Time: Total time spent is greater than 50% in coordination of care (as documented) at patient's floor/unit and/or counseling patient:
[2023-03-17] MEDS ORDERED: 0.9 % SODIUM CHLORIDE 250 ML IV SCH (20:30)
[2023-03-17] MEDS ORDERED: NITROGLYCERIN 0.4 MG TAB.SUBL SL PRN (20:57)
[2023-03-17] MEDS ORDERED: 0.9 % SODIUM CHLORIDE 1,000 ML IV SCH (20:57)
[2023-03-17] MEDS ORDERED: HYDROmorphone 0.5 MG/0.5 ML SYRINGE IV PRN (20:57)
[2023-03-17] MEDS ORDERED: LACTULOSE 20 GM/30 ML ORAL.SOL PO PRN (20:57)
[2023-03-17] MEDS ORDERED: ACETAMINOPHEN 325 MG TABLET PO PRN (20:57)
[2023-03-17] MEDS ORDERED: 0.9 % SODIUM CHLORIDE 500 ML IV ONE (21:38)
[2023-03-17] MEDS: 0.9 % SODIUM CHLORIDE 10 ML SYRINGE IV SCH (22:00)
[2023-03-17] MEDS ORDERED: 0.9 % SODIUM CHLORIDE 10 ML SYRINGE IV SCH (22:00)
[2023-03-17 22:38] LABS: Appearance,Urine CLEAR (Clear); Bilirubin,Urine Negative (Negative); Color,Urine RED; Culture Indicated,Urine yes; Glucose,Urine (UA) 50 mg/dL (Negative); Ketones,Urine Negative (Negative); Leukocyte Esterase,Urine Negative /uL (Negative); Nitrate,Urine Negative (Negative); Protein,Urine 100 mg/dL (Negative); Specific Gravity,Urine 1.009 (1.000-1.035); Urine RBC > 182 /hpf (0-1); Urine Squamous Epithelial Cell 0 /hpf (0-4); Urine WBC 60 /hpf (0-4); Urobilinogen,Urine Negative
[2023-03-17] MEDS ORDERED: IOPAMIDOL 100 ML BOTTLE IV ONE (23:26)
[2023-03-17] MEDS: DOCUSATE SODIUM 100 MG CAPSULE PO SCH (23:34)
--- NOTE | 2023-03-18 01:01 | XRay Report ---
CLINICAL INFORMATION: chest pain COMPARISON: 10/07/2022 FINDINGS: Heart size, mediastinum and pulmonary vessels are unremarkable. Moderate COPD changes and bibasilar fibrosis similar to previous exam. No new pulmonary abnormality and no effusion. IMPRESSION: Moderate COPD-stable no acute disease Interpreted and Authenticated by: Bo Ortega 03/18/23
--- NOTE | 2023-03-18 01:12 | XRay Report ---
CLINICAL INFORMATION: CYSTOSCOPY WITH STONE COMPARISON: None. FINDINGS: Digital images from intraoperative cystogram were submitted. Total fluoroscopy time 2.2 minutes. Total radiation dose 29.5 mGY. IMPRESSION: Intraoperative cystogram Interpreted and Authenticated by: Bo Ortega 03/18/23
--- NOTE | 2023-03-18 01:36 | Cat Scan Report ---
CLINICAL INFORMATION: Chest pain. History of smoking and prostate cancer COMPARISON: CT pulmonary angiogram over five years prior 12/30/2017 TECHNIQUE: 80ml of Isovue-370 were injected intravenously. Using SmartPrep to maximize pulmonary artery opacification, .625mm helical slices were obtained from the lung apices through the lung bases. Following reconstruction, 2.5 mm sagittal, coronal, and axial reformations were processed. The exam was reviewed at mediastinal, lung, and bone windows. The exam was performed using radiation dose optimization techniques including, but not limited to, automated exposure control, adjustment of the mA and/or kV according to patient size and use of iterative reconstruction technique. FINDINGS: Pulmonary parenchymal windows show moderate centrilobular emphysema featuring chronic bronchitis and elevated lung volumes and wall thickening/dilatation of bronchi. Multiple nearly replaced the right upper lobe parenchyma. Multiple bullae also seen in the left upper lobe with scattered throughout both lower lobes. Moderate bandlike airspace disease in the posterior dependent lower lobes as decreased from the previous study. This is likely a combination of fibrosis and atelectasis. Scattered pleural parenchymal fibrosis in the right lung apices is unchanged from the 2018 study. No pulmonary nodules suggest malignancy.. Pleural spaces are unremarkable-no effusions. Mediastinal windows show the heart is mildly enlarged with subepicardial fat in the septal apical and left lateral wall of the left lateral ventricle suggesting subendocardial infarction. Extremely heavy calcific plaque present in the coronary arteries possible stents in in the left main coronary artery. The central pulmonary arteries are mildly enlarged compatible pulmonary hypertension related to COPD. main pulmonary diameter 3.4 cm. The pulmonary arteries are well opacified however-no evidence of embolus. The thoracic aorta is normal diameter. A few mildly enlarged lymph nodes in the lower mediastinum including the pericarinal region unchanged likely benign reactive adenopathy. The esophagus is grossly normal. The thyroid is unremarkable. Images through the superior abdomen show scattered stable hepatic cysts. The two low-attenuation lesions in the spleen, 14 mm and 20 mm respectively have been stable for more than five years. A 9 mm stone is present in the mid left renal calyx. There is a 10 mm stone in the right renal pelvis. 13 mm cyst noted in the lateral right kidney. A 12 mm nodule present in the right pararenal space, posterior to the liver has been stable. Bone windows show no osseous abnormality. IMPRESSION: 1. No evidence of pulmonary embolus or other acute cardiopulmonary process 2. Severe centrilobular emphysema. 3. Mild enlargement of the pulmonary arteries suggests associated pulmonary hypertension 4. Moderate bandlike airspace disease in the posterior dependent lower lobes diminished since previous exam is likely combination of atelectasis and fibrosis. No acute infiltrate 5. Scattered scarring in both lung stable since chest CT over five years prior. No new or enlarging pulmonary nodules to suggest pulmonary embolus. 6. Mild cardiomegaly with probable subendocardial infarction in the left ventricle. Heavy calcific plaque in the coronary arteries. 7. Bilateral nonobstructing renal stones. 8. scattered hepatic cysts and two low-attenuation lesions within the spleen which demonstrate long-term stability Interpreted and Authenticated by: Bo Ortega 03/18/23
[2023-03-18] MEDS: 0.9 % SODIUM CHLORIDE 10 ML SYRINGE IV SCH ×5 (05:10→22:30)
[2023-03-18 06:59] LABS: Hematocrit 27.6 % (40.1-51.0); Hemoglobin 8.3 g/dL (13.7-17.5); Mean Cell Volume 95.2 fL (80.0-100.0); Mean Corpuscular HGB Conc 30.1 g/dL (31.0-36.0); Mean Platelet Volume 8.8 fL (8.8-12.5); Platelet Count 274 K/mcL (140-440); Red Cell Distribution Width 15.9 % (11.5-14.5); WBC 11.9 K/mcL (4.5-11.0)
[2023-03-18 08:11] LABS: ALT/SGPT < 5 U/L (<40); AST/SGOT 10 U/L (<40); Albumin 2.7 gm/dL (3.2-5.2); Albumin/Globulin Ratio 1.2 (1.0-2.3); Alkaline Phosphatase 71 U/L (39-117); Bilirubin,Direct < 0.2 mg/dL (0-0.3); Bilirubin,Total 0.4 mg/dL (0.1-1.0); Blood Urea Nitrogen 16 mg/dL (8-23); Calcium 8.4 mg/dL (8.6-10.4); Carbon Dioxide 18 mmol/L (22-30); Chloride 110 mmol/L (96-108); Globulin 2.2 gm/dL (2.2-3.7); Glomerular Filtration Rate 79; Glucose 94 mg/dL (70-105); Lactate Dehydrogenase 117 U/L (135-225); Phosphorous 2.4 mg/dL (2.5-4.5); Triglycerides 70 mg/dL (<150); Uric Acid 5.4 mg/dL (2.5-8.0)
[2023-03-18] MEDS: CLOPIDOGREL 75 MG TABLET PO SCH (09:07)
[2023-03-18] MEDS: ASPIRIN 81 MG TAB.CHEW CHEWED SCH (09:07)
[2023-03-18] MEDS: DOCUSATE SODIUM 100 MG CAPSULE PO SCH ×2 (09:07→20:43)
[2023-03-18] MEDS: ATORVASTATIN 20 MG TABLET PO SCH (09:07)
--- NOTE | 2023-03-18 09:54 | General Surgery Progress Note ---
Surgery - Auxiliary Note Subjective Patient Information: Note initiated : 03/18/23 at 9:46 am Service Date, if different from initiated Date: [03/17/23 @ 1850] Patient: Philipp Connelly 82 y/o M admitted on 03/17/23. Chief Complaint: [CP s/p emergency cystoscopy with suprapubic cath plcmt Called to PACU @ 1850. Pt having CP. PMH significant for AMRITA placed beginning of January 2023 - currently on ASA 81mg and ?Plavix (daughter reports plavix) VSS. BP: 100s/60s, Hospitalist called - MD Ayo, Stat EKG, CXR and troponin ordered. 2nd PIV placed - CMP, CBC drawn, No remarkable changes noted on EKG from baseline. 1919: Ayo at bedside, NTG SL given, CP alleviated. Troponin < 0.02 tx to PCU. Sonny aware of situation and tx of patient to PCU.
--- NOTE | 2023-03-18 11:53 | Internal Med Progress Note ---
SUBJECTIVE Subjective Patient information: Note initiated : 03/18/23 at 11:48 am Service Date, if different from initiated Date: [] Patient: Philipp Connelly 82 y/o M admitted on 03/17/23. Chief Complaint: [] Principal diagnosis: Postoperative chest pain Interval history: Mr. Connelly is a 82 year old with a history not limited to coronary artery disease status post prior stent with the most recent AMRITA stent being placed in a restenosed LAD stent in January 2023 for the indication of unstable angina, prostate cancer status post brachytherapy complicated by radiation cystitis, chart review indicates that he also has a history of urethral stricture, bladder neck contracture, ureteral stones and tobacco use disorder. The patient has recently had a difficulty urinating, he presented to the emergency department a couple times in the last few days including earlier on the day of admission. Nursing staff attempted to place a Llanos catheter but that was unsuccessful. Urology was consulted and the patient was taken to the OR for ureteroscopy, laser lithotripsy of urethral and bladder neck stones, placement of a suprapubic catheter with cystogram and fulguration of bleeding. After the procedure in the PACU, the patient developed severe substernal chest pain for which hospital medicine was consulted. A stat EKG did not show any dynamic changes concerning for acute cardiac ischemia. Initial troponin level was normal at 0.02. The patient was given nitroglycerin 4 mg sublingual with improvement in his chest pain. The patient will be admitted for further monitoring and work-up. 03/18 Patient's vitals improved overnight, weaned to room air this morning. No more chest pain overnight, troponin trend was normal. CTA chest did not show any evidence of acute aortic syndrome, no PE. 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 Decreased hematuria today. Discussed the patient with Dr. Dennis, he feels the patient can resume Plavix today. We will continue to monitor hemoglobin today. Discontinued IV fluid. Transthoracic echocardiogram report pending. The patient requested to be DNR/DNI. Physical exam Head: Atraumatic, normal inspection. Eyes: normal appearance, no scleral icterus. Neck: full ROM Respiratory: Nasal cannula oxygen supplementation, does not appear to be in respiratory distress. Cardiovascular: normal rate and rhythm, S1, S2, chest pain is not reproducible with palpation. GI/Abdominal: soft, nontender, no guarding. : Suprapubic Llanos catheter draining bloody urine. Extremities: full range of motion, nontender. Neurological: CN II-XII intact, intact motor, intact sensation. Psychiatric: Appears anxious Skin: warm, normal color Constitutional Vitals: Vital Signs Temp Pulse Resp BP Pulse Ox O2 Del Method O2 Flow Rate 98.1 F 65 14 120/53 92 Room Air 2 03/18/23 10:00 03/18/23 10:00 03/18/23 10:00 03/18/23 10:00 03/18/23 10:00 03/18/23 10:00 03/18/23 06:01 Period Temp Pulse Resp BP Sys/Raines Pulse Ox O2 Del Method O2 Flow Rate Last 24 Hr 97.4 F-98.8 F 50-96 8-26 72-120/43-88 85-100 Nasal Cannula- Room Air 2-6 Intake and Output 03/17/23 03/18/23 03/18/23 19:59 03:59 11:59 Intake Total 305 1680 1300 Output Total 1130 530 Balance 305 550 770 Weight 68.039 kg 69.899 kg Intake & Output: Intake & Output 03/17/23 03/18/23 03/18/23 19:59 03:59 11:59 Intake Total 305 1680 1300 Output Total 1130 530 Balance 305 550 770 Weight 68.039 kg 69.899 kg Intake: IV 022 064 1088 Sodium Chloride 0.9% 1,000 ml @ 1000 100 mls/hr IV .Q10H [facility] Rx#: [id number] Sodium Chloride 0.9% 500 ml @ 500 Wide Open IV BOLUS ONE Rx#: [id number] Gentamicin Sulfate 200 mg In 255 Sodium Chloride 0.9% 250 ml @ 250 mls/hr IV ONCE [facility] Rx#: [id number] Ancef 2 gm In Dextrose 5% in 50 Water 50 ml @ 100 mls/hr IV PREOP [facility] Rx#:[id number] Oral 0 240 IV - Manual Only 1000 CBI Fluid 180 60 Output: Urine Catheter Amount 1080 530 Estimated Blood Loss 50 Other: Meal Breakfast Percent of Meal Consumed 100% Urine Appearance Small Blood Clots Hematuria Small Blood Clots Suprapubic Hematuria Hematuria Hematuria Small Blood Clots Small Blood Clots Urine Color Medium Red Medium Red Medium Red Suprapubic Light Red Dark Red Medium Red Urine Odor Normal Suprapubic Normal OBJ DATA Labs 03/18/23 05:27 03/18/23 05:27 Labs: Abnormal Lab Results 03/18/23 03/18/23 03/17/23 05:27 05:27 21:36 WBC 11.9 H RBC 2.90 L Hgb 8.3 L Hct 27.6 L MCHC 30.1 L RDW 15.9 H MPV Immature Gran % (Auto) Lymph % (Auto) Immature Gran # Chloride 110 H Carbon Dioxide 18 L Calcium 8.4 L Phosphorus 2.4 L Lactate Dehydrogenase 117 L Total Protein 4.9 L Albumin 2.7 L Urine Protein 100 A Urine Glucose (UA) 50 A Urine RBC > 182 H Urine WBC 60 H 03/17/23 03/17/23 03/17/23 20:31 15:27 15:27 WBC RBC 3.40 L Hgb 9.4 L 9.7 L Hct 31.2 L MCHC RDW 15.9 H MPV 8.7 L Immature Gran % (Auto) 0.6 H Lymph % (Auto) 14.5 L Immature Gran # 0.06 H Chloride 110 H Carbon Dioxide 21 L Calcium Phosphorus Lactate Dehydrogenase Total Protein Albumin Urine Protein Urine Glucose (UA) Urine RBC Urine WBC Meds: Medications Acetaminophen (Acetaminophen 325 Mg Tablet) 650 mg PO Q6HP PRN; Protocol PRN Reason: Per Pain Protocol/Fever > 101 Hydrocodone Bitart/Acetaminophen (Hydrocodone/Apap 5/325mg Tablet) 1 tab PO Q4HP PRN; Protocol PRN Reason: Per Pain Protocol Albuterol/Ipratropium (Ipratropium/Albuterol 3 Ml Ampul.Neb) 3 ml NEB Q4HRT PRN PRN Reason: wheezing Aspirin (Aspirin 81 Mg Tab.Chew) 81 mg CHEWED DAILY [facility] Last Admin: 03/18/23 09:07 Dose: 81 mg Atorvastatin Calcium (Atorvastatin 20 Mg Tablet) 20 mg PO DAILY [facility] Last Admin: 03/18/23 09:07 Dose: 20 mg Clopidogrel Bisulfate (Clopidogrel 75 Mg Tablet) 75 mg PO DAILY [facility] Last Admin: 03/18/23 09:07 Dose: 75 mg Docusate Sodium (Docusate Sodium 100 Mg Capsule) 100 mg PO BID [facility] Last Admin: 03/18/23 09:07 Dose: 100 mg Hydromorphone HCl (Hydromorphone 0.5 Mg/0.5 Ml Syringe) 0.5 mg IV Q2HP PRN; Protocol PRN Reason: Per Pain Protocol Lactulose (Lactulose 20 Gm/30 Ml Oral.Jessica) 10 gm PO DAILYP PRN PRN Reason: Constipation Nitroglycerin (Nitroglycerin 0.4 Mg Tab.Subl) 0.4 mg SL Q5M PRN PRN Reason: Chest Pain Ondansetron HCl (Ondansetron 4 Mg/2 Ml Vial) 4 mg IV Q4HP PRN; Protocol PRN Reason: Nausea And Vomiting Senna (Sennosides 1 Tablet) 2 tab PO HSP PRN PRN Reason: Constipation Sodium Chloride (0.9 % Sodium Chloride 10 Ml Syringe) 10 ml IV Q8 [facility] Last Admin: 03/18/23 05:10 Dose: 10 ml A/P Narrative A/P Narrative: Assessment :82 year old with a history of coronary artery disease status post prior stents with the most recent AMRITA stent being placed in a restenosed LAD stent in January 2023 for the indication of unstable angina, reported heart failure with reduced ejection fraction, prostate cancer status post brachytherapy, tobacco use disorder who developed substernal chest pain in PACU after undergoing and urgent urologic procedure requiring placement of a suprapubic catheter, ureteroscopy, laser lithotripsy of urethral/bladder neck stones and fulguration of bleeding. There is no evidence of acute coronary syndrome, CTA chest did not show any evidence of acute aortic syndrome or pulmonary embolism. The patient's chest pain resolved. The patient does have acute on chronic anemia secondary to bladder bleeding #Chest pain #History of CAD status post AMRITA January 2023 #Acute on chronic anemia likely secondary to bleeding from bladder #Status post suprapubic catheter, ureteroscopy, laser lithotripsy, fulguration of bleeding #Reported heart failure with reduced ejection fraction #Prostate cancer status post prior brachytherapy complicated by radiation cystitis #Tobacco use disorder Plan: -Continue aspirin 81 mg daily, home atorvastatin. -Resume Plavix 75 mg daily. -Monitor hemoglobin, goal hemoglobin of greater than 8 given history of CAD. -Discontinue IV fluid, monitor volume status. -Follow-up transthoracic echocardiogram report. -Nitroglycerin SL as needed. -Nicotine replacement as needed. 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 -Urology following. -Cardiac diet. -CODE STATUS: DNR/DNI Time Spent With Patient Time: Total time spent is greater than 50% in coordination of care (as documented) at patient's floor/unit and/or counseling patient: QUALITY Stroke Symptom Onset Unknown: No VTE Deep Vein Thrombosis/Pulmonary Embolism Present on Admission: No
--- NOTE | 2023-03-18 12:26 | Urology Progress Note ---
SUBJECTIVE Subjective Patient information: Note initiated : 03/18/23 at 12:20 pm Service Date, if different from initiated Date: [] Patient: Philipp Connelly 82 y/o M admitted on 03/17/23. Chief Complaint: [Gross hematuria, bladder neck contracture status post suprapubic catheter, chest pain] Principal diagnosis: Bladder neck contracture and postoperative chest pain Interval history: Postoperatively the patient had chest pain. Myocardial infarction has been ruled out. Hemoglobin is dropped slightly. His hematuria is clearing. He is feeling better. Constitutional Vitals: Vital Signs Temp Pulse Resp BP Pulse Ox O2 Del Method O2 Flow Rate 98.0 F 78 20 87/55 94 Room Air 2 03/18/23 12:10 03/18/23 12:16 03/18/23 12:16 03/18/23 12:10 03/18/23 12:16 03/18/23 10:00 03/18/23 06:01 Period Temp Pulse Resp BP Sys/Raines Pulse Ox O2 Del Method O2 Flow Rate Last 24 Hr 97.4 F-98.8 F 50-96 8-26 72-120/43-88 85-100 Nasal Cannula- Room Air 2-6 Intake and Output 03/18/23 03/18/23 03/18/23 03:59 11:59 19:59 Intake Total 1680 1300 240 Output Total 1130 530 225 Balance 550 770 15 Weight 69.899 kg Intake & Output: Intake & Output 03/18/23 03/18/23 03/18/23 03:59 11:59 19:59 Intake Total 1680 1300 240 Output Total 1130 530 225 Balance 550 770 15 Weight 69.899 kg Intake: IV 500 1000 Sodium Chloride 0.9% 1,000 ml @ 1000 100 mls/hr IV .Q10H [facility] Rx#: [id number] Sodium Chloride 0.9% 500 ml @ 500 Wide Open IV BOLUS ONE Rx#: [id number] Oral 0 240 240 IV - Manual Only 1000 CBI Fluid 180 60 Output: Urine Catheter Amount 1080 530 225 Estimated Blood Loss 50 Other: Meal Breakfast Lunch Percent of Meal Consumed 100% 100% Feeding Ability Independent Urine Appearance Small Blood Clots Hematuria Small Blood Clots Suprapubic Hematuria Hematuria Small Blood Clots Small Blood Clots Urine Color Medium Red Medium Red Medium Red Suprapubic Dark Red Medium Red Medium Red Urine Odor Normal Normal Suprapubic Normal Normal General appearance: average body habitus, cooperative, no acute distress and thin Head Head exam: Present atraumatic, normal inspection and normocephalic Respiratory Respiratory exam: Present normal respiratory exam Cardiovascular Cardiovascular exam: Present normal rate and rhythm GI/Abdominal Additional comments: The suprapubic wound was examined is no longer bleeding. Expanded Exam Urine Appearance: Clear Urine Color: Light Red A/P Assessment and plan (1) Chest pain: Status: Acute (2) Gross hematuria: Status: Acute (3) Acute on chronic urinary retention: Status: Acute (4) Bladder neck contracture: Status: Chronic (5) Chronic kidney disease, stage III (moderate): Status: Acute (6) CAD (coronary artery disease): Status: Chronic Narrative A/P Narrative: Shmuel is doing much better today. He is feeling better. Myocardial infarction has been ruled out. His hemoglobin is dropping slightly but he is no longer having any significant bleeding and his hematuria is clearing. The suprapubic tube appears to be draining well. His serum creatinine is within normal limits at 0.9. From a urology standpoint he may go home with suprapubic tube care and outpatient follow-up next week. Time Spent With Patient Time: Total time spent is greater than 50% in coordination of care (as documented) at patient's floor/unit and/or counseling patient:
[2023-03-18] MEDS ORDERED: 0.9 % SODIUM CHLORIDE 250 ML IV SCH (12:45)
[2023-03-18] MEDS: SENNOSIDES 1 TABLET PO PRN (19:15)
[2023-03-18] MEDS: HYDROcodone/APAP 5/325MG TABLET PO PRN (19:15)
[2023-03-19] MEDS: 0.9 % SODIUM CHLORIDE 10 ML SYRINGE IV SCH ×2 (03:30→03:35)
[2023-03-19 05:21] LABS: ALT/SGPT < 5 U/L (<40); AST/SGOT 10 U/L (<40); Albumin 2.9 gm/dL (3.2-5.2); Albumin/Globulin Ratio 1.3 (1.0-2.3); Alkaline Phosphatase 66 U/L (39-117); Bilirubin,Direct < 0.2 mg/dL (0-0.3); Bilirubin,Total 0.4 mg/dL (0.1-1.0); Blood Urea Nitrogen 19 mg/dL (8-23); Calcium 8.8 mg/dL (8.6-10.4); Carbon Dioxide 21 mmol/L (22-30); Chloride 107 mmol/L (96-108); Globulin 2.2 gm/dL (2.2-3.7); Glomerular Filtration Rate 79; Glucose 78 mg/dL (70-105); Lactate Dehydrogenase 138 U/L (135-225); Phosphorous 1.9 mg/dL (2.5-4.5); Triglycerides 54 mg/dL (<150); Uric Acid 5.1 mg/dL (2.5-8.0)
[2023-03-19] MEDS: ATORVASTATIN 20 MG TABLET PO SCH (08:24)
[2023-03-19] MEDS: HYDROcodone/APAP 5/325MG TABLET PO PRN ×2 (08:24→12:22)
[2023-03-19] MEDS: ASPIRIN 81 MG TAB.CHEW CHEWED SCH (08:24)
[2023-03-19] MEDS: SENNOSIDES 1 TABLET PO PRN (08:24)
[2023-03-19] MEDS: DOCUSATE SODIUM 100 MG CAPSULE PO SCH (08:24)
[2023-03-19] MEDS: CLOPIDOGREL 75 MG TABLET PO SCH (08:24)
--- NOTE | 2023-03-19 08:47 | Discharge Summary ---
Discharge Provider Provider IMPORTANT FOLLOW-UP INFORMATION FOR PCP: Patient information: Note initiated : 03/19/23 at 8:44 am Service Date, if different from initiated Date: [] Patient: Philipp Connelly 82 y/o M admitted on 03/17/23. Chief Complaint: [] Date of admission: 03/17/23 20:56 Discharge date: 03/19/23 Primary care physician: ALEKSEY Arana Consults: 03/17/23 Consult to Physician [CONS] Stat Comment: Consulting Provider: Sergey Dennis Reason For Exam: Physician to Consult 03/17/23 19:44 Consult to Physician [CONS] Routine Comment: Consulting Provider: Alfredo Rollins Reason For Exam: Physician to Consult COURSE Hospital Course Hospital course: Mr. Connelly is a 82 year old with a history not limited to coronary artery disease status post prior stent with the most recent AMRITA stent being placed in a restenosed LAD stent in January 2023 for the indication of unstable angina, prostate cancer status post brachytherapy complicated by radiation cystitis, chart review indicates that he also has a history of urethral stricture, bladder neck contracture, ureteral stones and tobacco use disorder. The patient has recently had a difficulty urinating, he presented to the emergency department a couple times in the last few days including earlier on the day of admission. Nursing staff attempted to place a Llanos catheter but that was unsuccessful. Urology was consulted and the patient was taken to the OR for ureteroscopy, laser lithotripsy of urethral and bladder neck stones, placement of a suprapubic catheter with cystogram and fulguration of bleeding. After the procedure in the PACU, the patient developed severe substernal chest pain for which hospital medicine was consulted. A stat EKG did not show any dynamic changes concerning for acute cardiac ischemia. Initial troponin level was normal at 0.02. The patient was given nitroglycerin 4 mg sublingual with improvement in his chest pain. The patient will be admitted for further monitoring and work-up. 03/18 Patient's vitals improved overnight, weaned to room air this morning. No more chest pain overnight, troponin trend was normal. CTA chest did not show any evidence of acute aortic syndrome, no PE. 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 Decreased hematuria today. Discussed the patient with Dr. Dennis, he feels the patient can resume Plavix today. We will continue to monitor hemoglobin today. Discontinued IV fluid. Transthoracic echocardiogram report pending. The patient requested to be DNR/DNI. 03/19 Vital stable overnight, hemoglobin stable. On room air this morning. Urine color improving, now more of a pink color than red as it was yesterday. Dr. Sonny de jesusay with discharge today and follow-up in clinic. The patient is discharged home with home health. Physical exam Head: Atraumatic, normal inspection. Eyes: normal appearance, no scleral icterus. Neck: full ROM. Respiratory: Room air, does not appear to be in respiratory distress. Cardiovascular: normal rate and rhythm, S1, S2, chest pain is not reproducible with palpation. GI/Abdominal: soft, nontender, no guarding. : Suprapubic Llanos catheter draining pink urine. Extremities: full range of motion, nontender. Neurological: CN II-XII intact, intact motor, intact sensation. Psychiatric: Normal mood. Skin: warm, normal color. Discharge diagnosis: Bladder outlet obstruction status post suprapubic catheter Secondary discharge diagnosis: Chest plain Hematuria Prostate cancer Time Spent with Patient Time attestation: Total time spent providing and/or coordinating discharge services: Time spent: Greater than 30 minutes EXAM Constitutional Vitals: Temp Pulse Resp BP Pulse Ox O2 Del Method O2 Flow Rate 98.2 F 66 23 H 107/54 92 Room Air 1 03/19/23 04:01 03/19/23 04:01 03/19/23 04:01 03/19/23 04:01 03/19/23 04:01 03/19/23 04:01 03/18/23 22:26 Discharge Data Data Completed and Pending Labs on day of discharge: Labs from last 24 hours 03/19/23 03/19/23 03/19/23 07:53 03:33 03:33 Hgb 9.1 L 9.1 L Sodium 133 Potassium 4.4 Chloride 107 Carbon Dioxide 21 L Anion Gap 5.0 L BUN 19 Creatinine 0.9 GFR Calculation 79 Glucose 78 Uric Acid 5.1 Calcium 8.8 Phosphorus 1.9 L Magnesium 2.2 Total Bilirubin 0.4 Direct Bilirubin < 0.2 GGT 18 AST 10 ALT < 5 Alkaline Phosphatase 66 Lactate Dehydrogenase 138 Troponin T Total Protein 5.1 L Albumin 2.9 L Globulin 2.2 Albumin/Globulin Ratio 1.3 Triglycerides 54 03/19/23 03/18/23 03/18/23 03:33 22:28 11:32 Hgb 7.8 L Sodium Potassium Chloride Carbon Dioxide Anion Gap BUN Creatinine GFR Calculation Glucose Uric Acid Calcium Phosphorus Magnesium Total Bilirubin Direct Bilirubin GGT AST ALT Alkaline Phosphatase Lactate Dehydrogenase Troponin T < 0.01 < 0.01 Total Protein Albumin Globulin Albumin/Globulin Ratio Triglycerides Preliminary micro results at discharge 03/17/23 21:37 Urine Culture - Preliminary Urine - Suprapubic Discharge Plan Patient/Caregiver Discharge Instructions Activity: increase activity as tolerated Diet: Cardiac Instructions: Coronary Artery Disease (GEN), How to Care for Your Suprapubic Catheter (GEN), Ureteral Stones (GEN), Lithotripsy (GEN), Ureteroscopy (GEN) Prescriptions: New nitroglycerin 0.4 mg Tablet, Sublingual 0.4 mg SL Q5M PRN (Reason: Chest Pain) Qty: 30 0RF Continued aspirin 81 mg tablet,delayed release (DR/EC) 81 mg PO QDAY Qty: 30 0RF Patient Comments: stopped for surgery on 08/27/22. Pt does not remember if he restarted it. Rx Instructions: STOPPED ON 08/27 FOR SURGERY atorvastatin 20 mg tablet 20 mg PO QDAY clopidogrel 75 mg tablet 75 mg PO QAM fluticasone propionate 50 mcg/actuation spray,suspension 1 spray intranasal QDAY Discontinued spironolactone 25 mg tablet 12.5 mg PO QDAY Follow Up Plan Follow up with: Sergey Dennis MD [Physician] - 03/31/23 8:30 am Denver Franco ARNP [Primary Care Provider] - Patient Disposition: Home Health Service Overall status at discharge: patient is progressing back to baseline Discharge Orders: Discharge Order (Routine); Ordered 03/19/23 Ordered By: Alfredo JULIAN VTE Deep Vein Thrombosis/Pulmonary Embolism Present on Admission: No
[2023-03-19] MEDS ORDERED: NEUTRA PHOS 1 PACKET PO SCH (09:00)
--- NOTE | 2023-03-23 07:36 | EKG ---
[facility] Test Date: 2023-03-17 Pat Name: Philipp Connelly Department: ED Room: Gender: Male Disability Case Manager: : 1940 Requested By: Serge Poon Order Number: [id number] Reading MD: Howard Voss Measurements Intervals [place] Rate: 72 P: 81 [place]: 150 QRS: -71 QRSD: 112 T: 82 QT: 404 QTc: 443 Interpretive Statements Sinus rhythm Left anterior fascicular block Anterior Q waves Unchanged compared to prior Electronically Signed On 03-23-2023 7:36:24 PDT by Howard Voss /store/M0/[id number]/[id number]
--- NOTE | 2023-03-23 07:39 | EKG ---
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
--- NOTE | 2023-03-23 08:43 | EKG ---
[facility] Test Date: 2023-03-17 Pat Name: Philipp Connelly Department: [facility] Room: Gender: Male Supervisory It Specialist: : 1940 Requested By: Darling Hbubard Order Number: [id number] Reading MD: Howard Voss Measurements Intervals [place] Rate: 61 P: 40 [place]: 155 QRS: -68 QRSD: 118 T: 64 QT: 452 QTc: 455 Interpretive Statements Sinus rhythm PVCs Incomplete right bundle branch block Anterior Q waves Electronically Signed On 03-23-2023 8:43:25 PDT by Howard Voss /store/M0/[id number]/[id number]
== END 2023-03-19 13:35 | disposition home health service (06) | DRG 663 ==
LOC: ED 14:57 → SUR 16:35 → ICU 20:56
PROVIDERS: ADMIT Internal Medicine; ATTEND Internal Medicine

== ENCOUNTER 2024-07-05 12:07 | Inpatient (IN) ==
[2024-07-05 13:03] LABS: Basophils # (Auto) 0.03 K/mcL (0.00-0.30); Basophils % (Auto) 0.2 % (0.0-2.0); Eosinophils # (Auto) 0.02 K/mcL (0.00-0.70); Eosinophils % (Auto) 0.1 % (0.0-7.0); Hematocrit 39.5 % (40.1-51.0); Lymphocytes # (Auto) 0.98 K/mcL (1.50-4.80); Lymphocytes % (Auto) 5.9 % (15.5-49.0); Mean Cell Volume 88.6 fL (80.0-100.0); Mean Corpuscular HGB Conc 32.9 g/dL (31.0-36.0); Monocytes # (Auto) 1.91 K/mcL (0.10-0.90); Monocytes % (Auto) 11.4 % (1.0-12.0); Neutrophils % (Auto) 82.1 % (38.0-78.0); Platelet Count 256 K/mcL (140-440); RBC 4.46 M/mcL (4.63-6.08); Red Cell Distribution Width 14.5 % (11.5-14.5); WBC 16.7 K/mcL (4.5-11.0)
[2024-07-05 13:25] LABS: ALT/SGPT 6 U/L (<40); AST/SGOT 16 U/L (<40); Albumin 3.4 gm/dL (3.2-5.2); Alkaline Phosphatase 78 U/L (39-117); Bilirubin,Total 0.9 mg/dL (0.1-1.0); Blood Urea Nitrogen 37 mg/dL (8-23); Calcium 9.8 mg/dL (8.6-10.4); Carbon Dioxide 20 mmol/L (22-30); Chloride 102 mmol/L (96-108); Globulin 3.3 gm/dL (2.2-3.7); Glomerular Filtration Rate 30; Glucose 156 mg/dL (70-105); Sodium 135 mmol/L (133-145)
[2024-07-05 15:05] LABS: Appearance,Urine Clear (Clear); Bilirubin,Urine Negative (Negative); Color,Urine Yellow; Glucose,Urine (UA) Negative (Negative); Ketones,Urine Negative (Negative); Leukocyte Esterase,Urine 3+(Large) /uL (Negative); Nitrate,Urine Negative (Negative); PH,Urine 5.5 (5.0-9.0); Protein,Urine 100 mg/dL (Negative); Urine Blood 3+(Large) ery/mcL (Negative); Urine Hyphae Yeast Few /hpf; Urine RBC 25 /hpf (0-3); Urine Squamous Epithelial Cell 2 /hpf (0-4); Urine WBC 70 /hpf (0-4); Urobilinogen,Urine Normal
[2024-07-05] MEDS: 0.9 % SODIUM CHLORIDE 1,000 ML IV ONE ×3 (15:53→22:19)
[2024-07-05] MEDS: ACETAMINOPHEN 1,000 MG/100 ML BAG IV ONE (16:41)
[2024-07-05] MEDS: cefTRIAXone 2 GM in DEXTROSE 5% IN WATER 50 ML IV ONE (17:02)
[2024-07-05] MEDS: AZITHROMYCIN 250 MG TABLET PO ONE (17:03)
[2024-07-05 18:08] LABS: Blood Urea Nitrogen 38 mg/dL (8-23); Calcium 8.8 mg/dL (8.6-10.4); Carbon Dioxide 17 mmol/L (22-30); Chloride 103 mmol/L (96-108); Glomerular Filtration Rate 34; Glucose 108 mg/dL (70-105); Potassium 4.1 mmol/L (3.3-5.1); Sodium 132 mmol/L (133-145)
[2024-07-05] MEDS ORDERED: METOCLOPRAMIDE 10 MG/2 ML VIAL IV PRN (21:44)
[2024-07-05] MEDS ORDERED: SENNOSIDES 1 TABLET PO PRN (21:44)
[2024-07-05] MEDS ORDERED: ONDANSETRON 4 MG/2 ML VIAL IV PRN (21:44)
[2024-07-05] MEDS ORDERED: MAGNESIUM SULFATE 2 GM/50 ML BAG IV PRN (21:44)
[2024-07-05] MEDS ORDERED: POTASSIUM CHLORIDE 20 MEQ TABLET PO PRN ×2 (21:44)
[2024-07-05] MEDS ORDERED: ACETAMINOPHEN 160 MG/5 ML ORAL.SOL PO PRN (21:44)
[2024-07-05] MEDS ORDERED: IPRATROPIUM/ALBUTEROL 3 ML AMPUL.NEB NEB PRN (21:44)
[2024-07-05] MEDS ORDERED: POLYETHYLENE GLYCOL 3350 17 GM PACKET PO PRN (21:44)
[2024-07-05] MEDS ORDERED: POTASSIUM CHLORIDE 40 MEQ in DEXTROSE 5% IN WATER 500 ML IV PRN (21:44)
[2024-07-05] MEDS ORDERED: NOREPINEPHRINE 250 ML IV PRN (22:00)
[2024-07-05] MEDS ORDERED: NOREPINEPHRINE 250 ML IV SCH (22:00)
[2024-07-05] MEDS: DOCUSATE SODIUM 100 MG CAPSULE PO SCH (22:19)
[2024-07-05] MEDS: HEPARIN 5,000 UNIT/ML VIAL SQ SCH (22:42)
[2024-07-06] MEDS: ACETAMINOPHEN 325 MG TABLET PO PRN (03:13)
[2024-07-06] MEDS: ACETAMINOPHEN 325 MG TABLET PO ONE (03:24)
[2024-07-06 06:13] LABS: Basophils # (Auto) 0.02 K/mcL (0.00-0.30); Basophils % (Auto) 0.1 % (0.0-2.0); Eosinophils # (Auto) 0.07 K/mcL (0.00-0.70); Eosinophils % (Auto) 0.5 % (0.0-7.0); Hematocrit 34.2 % (40.1-51.0); Hemoglobin 11.1 g/dL (13.7-17.5); Lymphocytes # (Auto) 0.96 K/mcL (1.50-4.80); Lymphocytes % (Auto) 6.9 % (15.5-49.0); Mean Cell Volume 89.1 fL (80.0-100.0); Mean Corpuscular HGB Conc 32.5 g/dL (31.0-36.0); Mean Platelet Volume 8.9 fL (8.8-12.5); Monocytes # (Auto) 1.81 K/mcL (0.10-0.90); Neutrophils % (Auto) 79.3 % (38.0-78.0); Platelet Count 197 K/mcL (140-440); RBC 3.84 M/mcL (4.63-6.08); Red Cell Distribution Width 14.3 % (11.5-14.5); WBC 13.9 K/mcL (4.5-11.0)
[2024-07-06 06:14] LABS: ALT/SGPT 6 U/L (<40); AST/SGOT 15 U/L (<40); Albumin 2.8 gm/dL (3.2-5.2); Alkaline Phosphatase 62 U/L (39-117); Bilirubin,Direct < 0.2 mg/dL (0-0.3); Bilirubin,Total 0.4 mg/dL (0.1-1.0); Blood Urea Nitrogen 38 mg/dL (8-23); Calcium 9.1 mg/dL (8.6-10.4); Carbon Dioxide 18 mmol/L (22-30); Chloride 107 mmol/L (96-108); Globulin 2.8 gm/dL (2.2-3.7); Glomerular Filtration Rate 36; Glucose 130 mg/dL (70-105); Lactate Dehydrogenase 122 U/L (135-225); Potassium 4.2 mmol/L (3.3-5.1); Sodium 135 mmol/L (133-145); Triglycerides 82 mg/dL (<150); Uric Acid 6.3 mg/dL (2.5-8.0)
[2024-07-06] MEDS ORDERED: NITROGLYCERIN 0.4 MG TAB.SUBL SL PRN (08:05)
[2024-07-06] MEDS: cefTRIAXone 1 GM VIAL IV SCH (09:23)
[2024-07-06] MEDS: AZITHROMYCIN 500 MG in 0.9 % SODIUM CHLORIDE 250 ML IV SCH (09:23)
[2024-07-06] MEDS: OXYBUTYNIN CHLORIDE 5 MG TAB.XL.24H PO SCH (09:25)
[2024-07-06] MEDS: PHOSPHORUS 250 MG TABLET PO SCH (09:25)
[2024-07-06] MEDS: SODIUM BICARBONATE 650 MG TABLET PO SCH (09:25)
[2024-07-06] MEDS: ASPIRIN 81 MG TAB.CHEW PO SCH (21:36)
[2024-07-06] MEDS: ATORVASTATIN 20 MG TABLET PO SCH (21:37)
[2024-07-07 06:34] LABS: ALT/SGPT 7 U/L (<40); AST/SGOT 13 U/L (<40); Albumin 2.7 gm/dL (3.2-5.2); Albumin/Globulin Ratio 0.9 (1.0-2.3); Alkaline Phosphatase 61 U/L (39-117); Bilirubin,Direct < 0.2 mg/dL (0-0.3); Bilirubin,Total 0.2 mg/dL (0.1-1.0); Blood Urea Nitrogen 39 mg/dL (8-23); Calcium 9.4 mg/dL (8.6-10.4); Carbon Dioxide 20 mmol/L (22-30); Chloride 107 mmol/L (96-108); Glomerular Filtration Rate 42; Glucose 92 mg/dL (70-105); Lactate Dehydrogenase 128 U/L (135-225); Phosphorous 3.2 mg/dL (2.5-4.5); Potassium 4.2 mmol/L (3.3-5.1); Sodium 137 mmol/L (133-145); Triglycerides 115 mg/dL (<150)
[2024-07-07 06:41] LABS: Basophils # (Auto) 0.01 K/mcL (0.00-0.30); Basophils % (Auto) 0.1 % (0.0-2.0); Eosinophils # (Auto) 0.35 K/mcL (0.00-0.70); Eosinophils % (Auto) 3.2 % (0.0-7.0); Hematocrit 31.8 % (40.1-51.0); Lymphocytes # (Auto) 1.55 K/mcL (1.50-4.80); Lymphocytes % (Auto) 14.1 % (15.5-49.0); Mean Cell Volume 83.9 fL (80.0-100.0); Mean Corpuscular HGB Conc 34.6 g/dL (31.0-36.0); Mean Platelet Volume 9.5 fL (8.8-12.5); Monocytes # (Auto) 1.41 K/mcL (0.10-0.90); Monocytes % (Auto) 12.8 % (1.0-12.0); Neutrophils % (Auto) 69.6 % (38.0-78.0); Platelet Count 234 K/mcL (140-440); RBC 3.79 M/mcL (4.63-6.08); Red Cell Distribution Width 14.2 % (11.5-14.5)
[2024-07-07] MEDS: SODIUM BICARBONATE 650 MG TABLET PO SCH (09:40)
[2024-07-08 06:29] LABS: ALT/SGPT 9 U/L (<40); AST/SGOT 15 U/L (<40); Albumin 2.7 gm/dL (3.2-5.2); Albumin/Globulin Ratio 0.9 (1.0-2.3); Alkaline Phosphatase 60 U/L (39-117); Bilirubin,Direct < 0.2 mg/dL (0-0.3); Bilirubin,Total 0.2 mg/dL (0.1-1.0); Blood Urea Nitrogen 41 mg/dL (8-23); Calcium 9.7 mg/dL (8.6-10.4); Carbon Dioxide 21 mmol/L (22-30); Chloride 107 mmol/L (96-108); Globulin 2.9 gm/dL (2.2-3.7); Glomerular Filtration Rate 50; Glucose 93 mg/dL (70-105); Lactate Dehydrogenase 114 U/L (135-225); Phosphorous 2.9 mg/dL (2.5-4.5); Potassium 4.7 mmol/L (3.3-5.1); Sodium 138 mmol/L (133-145); Triglycerides 112 mg/dL (<150); Uric Acid 5.8 mg/dL (2.5-8.0)
[2024-07-08] MEDS: 0.9 % SODIUM CHLORIDE 500 ML IV ONE (08:11)
[2024-07-08] MEDS ORDERED: PROPOFOL 200 MG/20 ML VIAL IV ONE (11:10)
[2024-07-08] MEDS ORDERED: fentaNYL 100 MCG/2 ML VIAL ONE (11:10)
[2024-07-08] MEDS ORDERED: GLYCOPYRROLATE 0.2 MG/ML VIAL IV ONE ×2 (11:10→11:18)
[2024-07-08] MEDS ORDERED: ROCURONIUM 10 MG/ML ML IV ONE (11:10)
[2024-07-08] MEDS ORDERED: DEXAMETHASONE 10 MG/ML VIAL ONE (11:10)
[2024-07-08] MEDS ORDERED: ONDANSETRON 4 MG/2 ML VIAL ONE (11:10)
[2024-07-08] MEDS ORDERED: SUGAMMADEX SODIUM 200 MG/2 ML VIAL IV ONE (11:10)
[2024-07-08] MEDS ORDERED: ETOMIDATE 20 MG/10 ML VIAL IV ONE (11:17)
[2024-07-08] MEDS ORDERED: ePHEDrine 50 MG/5 ML SYRINGE (ANEST) IV ONE (11:49)
[2024-07-08] MEDS ORDERED: fentaNYL 100 MCG/2 ML VIAL IV PRN (11:54)
[2024-07-08] MEDS ORDERED: IPRATROPIUM/ALBUTEROL 3 ML AMPUL.NEB NEB PRN (11:54)
[2024-07-08] MEDS ORDERED: ONDANSETRON 4 MG/2 ML VIAL IV PRN (11:54)
[2024-07-08] MEDS: IOVERSOL 50 ML VIAL IV ONE (12:36)
[2024-07-08] MEDS: LIDOCAINE 2% URO-JET 10 ML JEL.PF.APP UR ONE (12:36)
[2024-07-08] MEDS: LACTATED RINGERS 1,000 ML IV SCH (13:05)
[2024-07-08] MEDS: CYCLOBENZAPRINE 10 MG TABLET PO ONE (14:20)
[2024-07-08] MEDS: AMOXICILLIN/POTASSIUM CLAV 875 MG TABLET PO SCH (20:12)
[2024-07-09 06:11] LABS: Basophils # (Auto) 0 K/mcL (0.00-0.30); Basophils % (Auto) 0 % (0.0-2.0); Eosinophils # (Auto) 0 K/mcL (0.00-0.70); Eosinophils % (Auto) 0 % (0.0-7.0); Hematocrit 33.8 % (40.1-51.0); Hemoglobin 10.9 g/dL (13.7-17.5); Lymphocytes # (Auto) 0.81 K/mcL (1.50-4.80); Lymphocytes % (Auto) 6.6 % (15.5-49.0); Mean Cell Volume 89.4 fL (80.0-100.0); Mean Corpuscular HGB Conc 32.2 g/dL (31.0-36.0); Mean Platelet Volume 9.3 fL (8.8-12.5); Monocytes # (Auto) 0.61 K/mcL (0.10-0.90); Neutrophils % (Auto) 88.1 % (38.0-78.0); Platelet Count 252 K/mcL (140-440); RBC 3.78 M/mcL (4.63-6.08); Red Cell Distribution Width 14.4 % (11.5-14.5); WBC 12.2 K/mcL (4.5-11.0)
[2024-07-09 06:55] LABS: ALT/SGPT 16 U/L (<40); AST/SGOT 25 U/L (<40); Albumin 2.9 gm/dL (3.2-5.2); Alkaline Phosphatase 64 U/L (39-117); Bilirubin,Direct < 0.2 mg/dL (0-0.3); Bilirubin,Total 0.2 mg/dL (0.1-1.0); Blood Urea Nitrogen 34 mg/dL (8-23); Calcium 9.8 mg/dL (8.6-10.4); Carbon Dioxide 21 mmol/L (22-30); Chloride 106 mmol/L (96-108); Globulin 2.8 gm/dL (2.2-3.7); Glomerular Filtration Rate 55; Glucose 148 mg/dL (70-105); Lactate Dehydrogenase 113 U/L (135-225); Phosphorous 2.7 mg/dL (2.5-4.5); Sodium 137 mmol/L (133-145); Triglycerides 85 mg/dL (<150); Uric Acid 5.7 mg/dL (2.5-8.0)
== END 2024-07-09 09:46 | disposition home or self-care (01) | DRG 872 ==
LOC: ED 12:07 → ICU 21:43
PROVIDERS: ADMIT Internal Medicine; ATTEND Internal Medicine